=== PATIENT | female | born 1955 | race Caucasian/White ===

== ENCOUNTER 2017-02-16 15:25 | Emergency (ER) | payer MEDICAID, MEDICARE, SELFPAY ==
[~2017-02-16] VITALS: Ht 167.6 cm; Wt 112.7 kg
[~2017-02-16 15:25] MED LIST: BISA10SU PR; EUCECRE2 TOP; METF500T PO; PERC7.5T12 PO; PRED10TA2 PO; SENO8.6T9 PO; [UNRECOGNIZED DRUG - CODE] PO; [UNRECOGNIZED DRUG - CODE] TOP
[2017-02-16] MEDS ORDERED: COUG30LI4 PO (15:43)
[2017-02-16] MEDS ORDERED: ZITHTAB PO (17:07)
[2017-02-16 17:16] VITALS: BP 132/70
== END 2017-02-16 17:17 | disposition home or self-care (01) ==
LOC: M ED 15:25
DX: J41.8 Mixed simple and mucopurulent chronic bronchitis (principal); F99 Mental disorder, not otherwise specified; Z88.1 Allergy status to other antibiotic agents

== ENCOUNTER → 2017-11-05 | Outpatient (CLI) | payer MEDICARE, MEDICAID | LOC: M RAD 14:22 | DX: R22.42 Localized swelling, mass and lump, left lower limb (principal) | CPT/HCPCS: 93971 ==

== ENCOUNTER 2018-01-19 07:40 | Inpatient (IN) | payer MEDICARE, MEDICAID ==
[2018-01-19 08:13] LABS: HEMATOCRIT 40.1 % (36.0-47.0); HEMOGLOBIN 12.9 g/dl (12.0-15.5); MEAN CORPUSCULAR HEMOGLOBIN 28.3 pg (27.0-33.0); MEAN CORPUSCULAR HGB CONC 32.2 g/dl (32.0-36.5); MEAN CORPUSCULAR VOLUME 87.9 fl (80.0-96.0); PLATELET COUNT, AUTOMATED 201 10^3/uL (150-450); RED BLOOD COUNT 4.56 10^6/uL (4.00-5.40); WHITE BLOOD COUNT 6.5 10^3/uL (4.0-10.0)
[2018-01-19 08:36] LABS: ALBUMIN 3.4 GM/DL (3.2-5.2); ALBUMIN/GLOBULIN RATIO 0.89 (1.00-1.93); ALKALINE PHOSPHATASE 73 U/L (45-117); ALT/SGPT 27 U/L (12-78); ANION GAP 7 MEQ/L (8-16); AST/SGOT 20 U/L (7-37); BILIRUBIN,DIRECT 0.2 MG/DL (0.0-0.2); BILIRUBIN,TOTAL 0.7 MG/DL (0.2-1.0); BLOOD UREA NITROGEN 13 MG/DL (7-18); CALCIUM LEVEL 8.2 MG/DL (8.8-10.2); CARBON DIOXIDE LEVEL 28 MEQ/L (21-32); CHLORIDE LEVEL 106 MEQ/L (98-107); CREATININE FOR GFR 0.68 MG/DL (0.55-1.30); GLOMERULAR FILTRATION RATE > 60.0 (>45); GLUCOSE, FASTING 129 MG/DL (70-100); POTASSIUM SERUM 4.1 MEQ/L (3.5-5.1); SALICYLATE LEVEL 1.7 MG/DL (5.0-30.0); SODIUM LEVEL 141 MEQ/L (136-145); TOTAL PROTEIN 7.2 GM/DL (6.4-8.2)
[2018-01-19 08:44] LABS: ACETAMINOPHEN LEVEL < 2.0 UG/ML (10.0-30.0); ETHYL ALCOHOL (ETHANOL) < 0.003 % (0.000-0.010)
[2018-01-19 09:04] LABS: AMPHETAMINES LEVEL URINE NEGATIVE (NEGATIVE); BARBITURATES URINE NEGATIVE (NEGATIVE); BENZODIAZEPINES URINE NEGATIVE (NEGATIVE); CANNABINOIDS URINE NEGATIVE (NEGATIVE); COCAINE METABOLITE URINE NEGATIVE (NEGATIVE); METHADONE URINE NEGATIVE (NEGATIVE); OPIATES URINE NEGATIVE (NEGATIVE); PHENCYCLIDINE URINE NEGATIVE (NEGATIVE)
[2018-01-19] MEDS ORDERED: MOM 30ML SUSPENSION UDC PO (16:00)
[2018-01-19] MEDS ORDERED: MAALOX 30 ML SUSP *UDC PO (16:00)
[2018-01-19] MEDS: traZODone 50 MG TAB PO (20:56)
[2018-01-19] MEDS: ACETAMINOPHEN TAB 650MG DOSE (2X325MG) PO (20:57)
[2018-01-20] MEDS: traZODone 50 MG TAB PO (02:21)
[2018-01-20] MEDS: ACETAMINOPHEN TAB 650MG DOSE (2X325MG) PO ×2 (09:36→15:49)
[2018-01-20] MEDS: DOCUSATE SODIUM 100 MG CAP PO ×2 (11:13→21:00)
[2018-01-20] MEDS ORDERED: LORazepam 1 MG TAB PO (14:30)
[2018-01-20] MEDS: ARIPiprazole 10 MG TAB PO ×2 (14:30→21:00)
[2018-01-20 17:53] LABS: CPK CREATINE PHOSPHOKINASE 104 U/L (26-192); TROPONIN I < 0.02 NG/ML (< 0.10)
[2018-01-20 17:54] LABS: CK-MB VALUE MASS 1.8 NG/ML (<3.6); MB/CK RELATIVE INDEX 1.73 (< OR =4)
[2018-01-20] MEDS: CARVedilol 12.5 MG TAB PO (18:00)
[2018-01-20 23:14] LABS: CK-MB VALUE MASS 2.7 NG/ML (<3.6); CPK CREATINE PHOSPHOKINASE 226 U/L (26-192); MB/CK RELATIVE INDEX 1.19 (< OR =4); TROPONIN I < 0.02 NG/ML (< 0.10)
[2018-01-21 06:43] LABS: HEMOGLOBIN 14.3 g/dl (12.0-15.5); MEAN CORPUSCULAR HEMOGLOBIN 28.2 pg (27.0-33.0); MEAN CORPUSCULAR HGB CONC 32.5 g/dl (32.0-36.5); MEAN CORPUSCULAR VOLUME 86.8 fl (80.0-96.0); PLATELET COUNT, AUTOMATED 206 10^3/uL (150-450); RED BLOOD COUNT 5.07 10^6/uL (4.00-5.40); RED CELL DISTRIBUTION WIDTH 14.1 % (11.5-14.5); WHITE BLOOD COUNT 7.4 10^3/uL (4.0-10.0)
[2018-01-21 07:01] LABS: ESTIMATED AVERAGE GLUCOSE 151 MG/DL (60-110); HEMOGLOBIN A1c 6.9 %
[2018-01-21 07:02] LABS: ANION GAP 9 MEQ/L (8-16); BLOOD UREA NITROGEN 17 MG/DL (7-18); CALCIUM LEVEL 8.6 MG/DL (8.8-10.2); CARBON DIOXIDE LEVEL 30 MEQ/L (21-32); CHLORIDE LEVEL 103 MEQ/L (98-107); GLOMERULAR FILTRATION RATE > 60.0 (>45); GLUCOSE, FASTING 127 MG/DL (70-100); MAGNESIUM LEVEL 2.2 MG/DL (1.8-2.4); POTASSIUM SERUM 4.4 MEQ/L (3.5-5.1); SODIUM LEVEL 142 MEQ/L (136-145)
[2018-01-21] MEDS: ASPIRIN 81 MG ENTERIC TAB PO (08:55)
[2018-01-21] MEDS: ARIPiprazole 10 MG TAB PO ×2 (08:55→21:34)
[2018-01-21] MEDS: ACETAMINOPHEN TAB 650MG DOSE (2X325MG) PO (08:56)
[2018-01-21] MEDS: CARVedilol 12.5 MG TAB PO ×2 (08:57→21:34)
[2018-01-21] MEDS: DOCUSATE SODIUM 100 MG CAP PO ×2 (09:00→21:34)
[2018-01-22 06:55] LABS: HEMATOCRIT 42.1 % (36.0-47.0); HEMOGLOBIN 13.7 g/dl (12.0-15.5); MEAN CORPUSCULAR HEMOGLOBIN 28.2 pg (27.0-33.0); MEAN CORPUSCULAR HGB CONC 32.5 g/dl (32.0-36.5); MEAN CORPUSCULAR VOLUME 86.6 fl (80.0-96.0); PLATELET COUNT, AUTOMATED 231 10^3/uL (150-450); RED BLOOD COUNT 4.86 10^6/uL (4.00-5.40); WHITE BLOOD COUNT 8.4 10^3/uL (4.0-10.0)
[2018-01-22 07:10] LABS: ANION GAP 7 MEQ/L (8-16); BLOOD UREA NITROGEN 17 MG/DL (7-18); CALCIUM LEVEL 8.5 MG/DL (8.8-10.2); CARBON DIOXIDE LEVEL 29 MEQ/L (21-32); CHLORIDE LEVEL 102 MEQ/L (98-107); CREATININE FOR GFR 0.83 MG/DL (0.55-1.30); GLOMERULAR FILTRATION RATE > 60.0 (>45); GLUCOSE, FASTING 137 MG/DL (70-100); MAGNESIUM LEVEL 2.2 MG/DL (1.8-2.4); POTASSIUM SERUM 4.1 MEQ/L (3.5-5.1); SODIUM LEVEL 138 MEQ/L (136-145)
[2018-01-22] MEDS: ARIPiprazole 10 MG TAB PO ×2 (10:02→21:19)
[2018-01-22] MEDS: ASPIRIN 81 MG ENTERIC TAB PO (10:02)
[2018-01-22] MEDS: DOCUSATE SODIUM 100 MG CAP PO ×2 (10:02→21:19)
[2018-01-22] MEDS: CARVedilol 12.5 MG TAB PO ×2 (10:03→21:20)
[2018-01-22 12:25] LABS: APPEARANCE, URINE HAZY (CLEAR); BACTERIA, URINE AUTO NEGATIVE (NEGATIVE); BILIRUBIN, URINE AUTO NEGATIVE (NEGATIVE); BLOOD, URINE BLOOD NEGATIVE (NEGATIVE); COLOR, URINE YELLOW (YELLOW); GLUCOSE, URINE (UA) AUTO NEGATIVE (NEGATIVE); KETONE, URINE AUTO NEGATIVE (NEGATIVE); LEUKOCYTE ESTERASE, URINE AUTO TRACE (NEGATIVE); MUCUS, URINE SMALL (NEGATIVE); NITRITE, URINE AUTO NEGATIVE (NEGATIVE); PROTEIN, URINE AUTO NEGATIVE (NEGATIVE); RBC, URINE AUTO 0 /HPF (0-3); SPECIFIC GRAVITY URINE AUTO 1.016 (1.002-1.035); SQUAMOUS EPITHELIAL CELL UR AU 1 /HPF (0-6); WBC, URINE AUTO 5 /HPF (0-3)
[2018-01-23] MEDS: ACETAMINOPHEN TAB 650MG DOSE (2X325MG) PO ×2 (06:25→17:08)
[2018-01-23 06:33] LABS: HEMATOCRIT 41.4 % (36.0-47.0); HEMOGLOBIN 13.3 g/dl (12.0-15.5); MEAN CORPUSCULAR HEMOGLOBIN 28.2 pg (27.0-33.0); MEAN CORPUSCULAR HGB CONC 32.1 g/dl (32.0-36.5); MEAN CORPUSCULAR VOLUME 87.9 fl (80.0-96.0); PLATELET COUNT, AUTOMATED 192 10^3/uL (150-450); RED BLOOD COUNT 4.71 10^6/uL (4.00-5.40)
[2018-01-23 07:07] LABS: ANION GAP 7 MEQ/L (8-16); BLOOD UREA NITROGEN 21 MG/DL (7-18); CALCIUM LEVEL 8.7 MG/DL (8.8-10.2); CARBON DIOXIDE LEVEL 31 MEQ/L (21-32); CHLORIDE LEVEL 104 MEQ/L (98-107); CREATININE FOR GFR 0.85 MG/DL (0.55-1.30); GLOMERULAR FILTRATION RATE > 60.0 (>45); GLUCOSE, FASTING 125 MG/DL (70-100); MAGNESIUM LEVEL 2.3 MG/DL (1.8-2.4); POTASSIUM SERUM 4.5 MEQ/L (3.5-5.1); SODIUM LEVEL 142 MEQ/L (136-145)
[2018-01-23] MEDS: ARIPiprazole 10 MG TAB PO (09:01)
[2018-01-23] MEDS: DOCUSATE SODIUM 100 MG CAP PO ×2 (09:01→21:55)
[2018-01-23] MEDS: CARVedilol 12.5 MG TAB PO ×2 (09:02→21:56)
[2018-01-23] MEDS: ASPIRIN 81 MG ENTERIC TAB PO (09:02)
[2018-01-23] MEDS: ARIPiprazole 15 MG TAB (AbiLIFY) PO (21:55)
[2018-01-24] MEDS: ACETAMINOPHEN TAB 650MG DOSE (2X325MG) PO ×2 (05:55→21:13)
[2018-01-24 07:05] LABS: HEMATOCRIT 42.6 % (36.0-47.0); HEMOGLOBIN 13.7 g/dl (12.0-15.5); MEAN CORPUSCULAR HEMOGLOBIN 28.3 pg (27.0-33.0); MEAN CORPUSCULAR HGB CONC 32.2 g/dl (32.0-36.5); PLATELET COUNT, AUTOMATED 224 10^3/uL (150-450); RED BLOOD COUNT 4.84 10^6/uL (4.00-5.40); WHITE BLOOD COUNT 6.7 10^3/uL (4.0-10.0)
[2018-01-24 07:30] LABS: ANION GAP 7 MEQ/L (8-16); BLOOD UREA NITROGEN 20 MG/DL (7-18); CALCIUM LEVEL 8.6 MG/DL (8.8-10.2); CARBON DIOXIDE LEVEL 30 MEQ/L (21-32); CHLORIDE LEVEL 103 MEQ/L (98-107); CREATININE FOR GFR 0.81 MG/DL (0.55-1.30); GLOMERULAR FILTRATION RATE > 60.0 (>45); GLUCOSE, FASTING 129 MG/DL (70-100); MAGNESIUM LEVEL 2.2 MG/DL (1.8-2.4); POTASSIUM SERUM 4.4 MEQ/L (3.5-5.1); SODIUM LEVEL 140 MEQ/L (136-145)
[2018-01-24] MEDS: DOCUSATE SODIUM 100 MG CAP PO ×2 (08:02→21:13)
[2018-01-24] MEDS: ARIPiprazole 15 MG TAB (AbiLIFY) PO ×2 (08:03→21:13)
[2018-01-24] MEDS: CARVedilol 12.5 MG TAB PO ×2 (08:03→21:13)
[2018-01-24] MEDS: ASPIRIN 81 MG ENTERIC TAB PO (08:03)
[2018-01-25 06:39] LABS: HEMATOCRIT 43.3 % (36.0-47.0); HEMOGLOBIN 13.8 g/dl (12.0-15.5); MEAN CORPUSCULAR HEMOGLOBIN 28.2 pg (27.0-33.0); MEAN CORPUSCULAR HGB CONC 31.9 g/dl (32.0-36.5); MEAN CORPUSCULAR VOLUME 88.4 fl (80.0-96.0); PLATELET COUNT, AUTOMATED 225 10^3/uL (150-450); RED CELL DISTRIBUTION WIDTH 14.1 % (11.5-14.5); WHITE BLOOD COUNT 7.3 10^3/uL (4.0-10.0)
[2018-01-25 07:10] LABS: ANION GAP 7 MEQ/L (8-16); BLOOD UREA NITROGEN 19 MG/DL (7-18); CALCIUM LEVEL 8.8 MG/DL (8.8-10.2); CARBON DIOXIDE LEVEL 29 MEQ/L (21-32); CHLORIDE LEVEL 105 MEQ/L (98-107); CREATININE FOR GFR 0.77 MG/DL (0.55-1.30); GLOMERULAR FILTRATION RATE > 60.0 (>45); GLUCOSE, FASTING 132 MG/DL (70-100); MAGNESIUM LEVEL 2.3 MG/DL (1.8-2.4); POTASSIUM SERUM 4.4 MEQ/L (3.5-5.1); SODIUM LEVEL 141 MEQ/L (136-145)
[2018-01-25] MEDS: ASPIRIN 81 MG ENTERIC TAB PO (08:12)
[2018-01-25] MEDS: CARVedilol 12.5 MG TAB PO ×2 (08:12→21:20)
[2018-01-25] MEDS: ACETAMINOPHEN TAB 650MG DOSE (2X325MG) PO (08:12)
[2018-01-25] MEDS: ARIPiprazole 15 MG TAB (AbiLIFY) PO ×2 (08:12→21:20)
[2018-01-25] MEDS: DOCUSATE SODIUM 100 MG CAP PO ×2 (08:12→21:19)
[2018-01-25] MEDS: traZODone 50 MG TAB PO (21:19)
[2018-01-26] MEDS: ACETAMINOPHEN TAB 650MG DOSE (2X325MG) PO (06:49)
[2018-01-26] MEDS: ARIPiprazole 15 MG TAB (AbiLIFY) PO (08:45)
[2018-01-26] MEDS: ASPIRIN 81 MG ENTERIC TAB PO (08:45)
[2018-01-26] MEDS: DOCUSATE SODIUM 100 MG CAP PO ×2 (08:45→21:42)
[2018-01-26] MEDS: CARVedilol 12.5 MG TAB PO ×2 (08:46→21:42)
[2018-01-26 08:50] LABS: HEMATOCRIT 41.5 % (36.0-47.0); MEAN CORPUSCULAR HEMOGLOBIN 27.7 pg (27.0-33.0); MEAN CORPUSCULAR HGB CONC 31.3 g/dl (32.0-36.5); MEAN CORPUSCULAR VOLUME 88.3 fl (80.0-96.0); PLATELET COUNT, AUTOMATED 218 10^3/uL (150-450); WHITE BLOOD COUNT 6.7 10^3/uL (4.0-10.0)
[2018-01-26 09:17] LABS: ANION GAP 7 MEQ/L (8-16); BLOOD UREA NITROGEN 18 MG/DL (7-18); CALCIUM LEVEL 8.5 MG/DL (8.8-10.2); CARBON DIOXIDE LEVEL 30 MEQ/L (21-32); CHLORIDE LEVEL 103 MEQ/L (98-107); CREATININE FOR GFR 0.84 MG/DL (0.55-1.30); GLOMERULAR FILTRATION RATE > 60.0 (>45); GLUCOSE, FASTING 146 MG/DL (70-100); MAGNESIUM LEVEL 2.2 MG/DL (1.8-2.4); POTASSIUM SERUM 4.2 MEQ/L (3.5-5.1); SODIUM LEVEL 140 MEQ/L (136-145)
[2018-01-26] MEDS: ARIPiprazole MONOHYDRATE 400 MG INJ (ABILIFY)(J0401) IM (11:47)
[2018-01-26] MEDS: traZODone 50 MG TAB PO (21:42)
[2018-01-26] MEDS: ARIPiprazole 10 MG TAB PO (21:42)
[2018-01-27 08:05] LABS: HEMOGLOBIN 13.2 g/dl (12.0-15.5); MEAN CORPUSCULAR HEMOGLOBIN 28.1 pg (27.0-33.0); MEAN CORPUSCULAR VOLUME 85.3 fl (80.0-96.0); PLATELET COUNT, AUTOMATED 215 10^3/uL (150-450); RED BLOOD COUNT 4.69 10^6/uL (4.00-5.40); RED CELL DISTRIBUTION WIDTH 14.2 % (11.5-14.5); WHITE BLOOD COUNT 7.6 10^3/uL (4.0-10.0)
[2018-01-27 08:42] LABS: ANION GAP 7 MEQ/L (8-16); BLOOD UREA NITROGEN 16 MG/DL (7-18); CALCIUM LEVEL 8.6 MG/DL (8.8-10.2); CARBON DIOXIDE LEVEL 27 MEQ/L (21-32); CHLORIDE LEVEL 107 MEQ/L (98-107); CREATININE FOR GFR 0.71 MG/DL (0.55-1.30); GLOMERULAR FILTRATION RATE > 60.0 (>45); GLUCOSE, FASTING 124 MG/DL (70-100); MAGNESIUM LEVEL 2.2 MG/DL (1.8-2.4); POTASSIUM SERUM 4.2 MEQ/L (3.5-5.1); SODIUM LEVEL 141 MEQ/L (136-145)
[2018-01-27] MEDS: CARVedilol 12.5 MG TAB PO ×2 (08:49→19:58)
[2018-01-27] MEDS: DOCUSATE SODIUM 100 MG CAP PO ×2 (08:49→19:57)
[2018-01-27] MEDS: ASPIRIN 81 MG ENTERIC TAB PO (08:50)
[2018-01-27] MEDS: ARIPiprazole 10 MG TAB PO ×2 (08:50→19:57)
[2018-01-27] MEDS: ACETAMINOPHEN TAB 650MG DOSE (2X325MG) PO ×2 (08:51→17:36)
[2018-01-28] MEDS: ACETAMINOPHEN TAB 650MG DOSE (2X325MG) PO (06:35)
[2018-01-28] MEDS: DOCUSATE SODIUM 100 MG CAP PO (08:35)
[2018-01-28] MEDS: ASPIRIN 81 MG ENTERIC TAB PO (08:36)
[2018-01-28] MEDS: CARVedilol 12.5 MG TAB PO (08:36)
[2018-01-28] MEDS: ARIPiprazole 10 MG TAB PO (08:36)
== END 2018-01-28 13:35 | disposition home or self-care (01) | DRG 885 ==
LOC: M ED 07:40 → M ED INP 13:46 → M PSY 14:34
DX: F20.0 Paranoid schizophrenia (principal); Z68.41 Body mass index [BMI] 40.0-44.9, adult; K59.00 Constipation, unspecified; R51 Headache; I48.0 Paroxysmal atrial fibrillation; E66.9 Obesity, unspecified; E11.9 Type 2 diabetes mellitus without complications; M54.9 Dorsalgia, unspecified; Z79.82 Long term (current) use of aspirin; Z79.899 Other long term (current) drug therapy; Z88.1 Allergy status to other antibiotic agents; Z98.51 Tubal ligation status; Z87.891 Personal history of nicotine dependence

== ENCOUNTER 2019-12-28 12:20 | Inpatient (IN) | payer MEDICARE ==
[~2019-12-28] VITALS: Ht 167.6 cm; Wt 127.1 kg
[~2019-12-28 12:20] MED LIST changes: +ABIL20TA5 PO; +ABIL30TA4 PO; +ABIL400I IM; +ARIP1TAB PO; +ARIS2.4I IM; +ASPI1TAB77 PO; +ASPI81TAEC PO; +CARV12.5 PO; +COLA100C5 PO; +COUG30LI4 PO; +TRAZ1TAB10 PO; +ZITHTAB PO; +[UNRECOGNIZED DRUG - CODE] PO; -[UNRECOGNIZED DRUG - CODE] PO
[2019-12-28] MEDS ORDERED: ACETAMINOPHEN TAB 650MG DOSE (2X325MG) PO PRN (13:00)
[2019-12-28] MEDS ORDERED: METOPROLOL TART 25 MG TABLET PO SCH (14:00)
[2019-12-28 15:16] VITALS: BP 154/78
[2019-12-28 15:17] LABS: ALBUMIN 3.2 GM/DL (3.2-5.2); ALT/SGPT 20 U/L (12-78); BILIRUBIN,TOTAL 0.5 MG/DL (0.2-1.0); BLOOD UREA NITROGEN 20 MG/DL (7-18); CALCIUM LEVEL 8.3 MG/DL (8.8-10.2); CARBON DIOXIDE LEVEL 27 MEQ/L (21-32); CHLORIDE LEVEL 105 MEQ/L (98-107); CHOLESTEROL LEVEL 165 MG/DL (<200); CHOLESTEROL RISK RATIO 5.892 (<5); CREATININE FOR GFR 0.79 MG/DL (0.55-1.30); FREE T4 0.97 NG/DL (0.76-1.46); GLOMERULAR FILTRATION RATE > 60.0 (>45); GLUCOSE, FASTING 195 MG/DL (70-100); HDL CHOLESTEROL 28 MG/DL (>40); LDL CHOLESTEROL 75 MG/DL (<100); MAGNESIUM LEVEL 2.1 MG/DL (1.8-2.4); NON-HDL-C 137 MG/DL; PHOSPHORUS LEVEL 3.3 MG/DL (2.5-4.9); SODIUM LEVEL 137 MEQ/L (136-145); THYROID STIMULATING HORMONE 0.275 uIU/ML (0.358-3.740); TRIGLYCERIDES LEVEL 311 MG/DL (<150)
[2019-12-28] MEDS: APIXABAN 5 MG TAB (ELIQUIS) PO SCH (16:32)
[2019-12-28 17:31] VITALS: BP 163/91
[2019-12-28] MEDS: METOPROLOL TART 25 MG TABLET PO SCH ×2 (17:37→21:24)
[2019-12-28] MEDS: HumaLOG INSULIN (NovoLOG) PER UNIT SC SCH ×2 (17:43→20:15)
[2019-12-28] MEDS ORDERED: GLUCOSE 4GM CHEW TABLET PO PRN (17:45)
[2019-12-28] MEDS ORDERED: DEXTROSE 50% 50 ML SYRINGE IV PRN (17:45)
[2019-12-28] MEDS ORDERED: GLUCAGON INJ 1MG VIAL SC PRN (17:45)
--- NOTE | 2019-12-28 17:52 | HPEPDOC ---
[facility] Medical History & Physical Date of Admission Dec 28, 2019 Date of Service: Dec 28, 2019 Attending Physician: LILLY FINK MD History and Physical CHIEF COMPLAINT: None. Incidentally noted variable heart rate on [facility] examination HISTORY OF PRESENT ILLNESS: 64 yo W with a history of medication non compliance, rarely sees doctors, reporting a history of abdominal hernia for which she did not follow through with surgery for repair, diagnosis of DM for which she takes no medications, GED, HTN, chronic back pain, osteoarthritis, and an extensive psychiatric history of schizophrenia, depression, anxiety and multiple admissions in the [facility] who was admitted to the [facility] today for command audiotry hallucinations telling her to cause self harm whom on nursing examination on arrival to the [facility] was noted to have a variable heart beat with variable heart rate with tachyardia up to 150s. The nurse requested a medicine consult and on stat EKG she had atrial flutter with a rate of 156. She was otherwise asymptomatic, normotensive and reported that she sometimes has palpitations but never worries about it because it does not bother her. She otherwise denied a history of a stroke, asymmetrical weakness, dyspnea, chest pain, abdominal pain, fever, chills, LE swelling, orthopnea or paroxysmal nocturnal dyspnea. I decided to admit her to medicine for newly noted aftrial flutter. On arrival, I initially admitted her to med/surg with tele but her RVR continued and I started her on metop 25 Q6H and she was transferred to the PCU boarding in the ICU just incase she would require IV medication for rate control. She ultimately broke and went back in to sinus. In the meantime, I started her on eliquis and consulted Dr. Pedro. PAST MEDICAL HISTORY: DM for which she takes no medications, GED, HTN, chronic back pain, osteoarthritis, and an extensive psychiatric history of schizophrenia, depression, anxiety and multiple admissions in the [facility] PAST SURGICAL HISTORY: Tubal ligation SOCIAL HISTORY: Tobacco use: NO ETOH: NO Illicit drug use: NO FAMILY HISTORY: Non contributory ALLERGIES: Please see below. REVIEW OF SYSTEMS:12 point ROS was reviewed and all the pertinent positives are noted in the HPI above and was otherwise negative. HOME MEDICATIONS: Please see below. PHYSICAL EXAMINATION: VITAL SIGNS: normotensive, tachycardic to 130s, afebrile, breathing comfortably on room air GENERAL APPEARANCE: Morbidly obese HEENT: NCAT, PERRLA, EOMI, MMM CARDIOVASCULAR: Irregularly irregular LUNGS: CTAB ABDOMEN: Large abdominal hernia, nontender, obese, normoactive, soft EXTREMITIES: has bilateral LE edema, WWP NEUROLOGICAL: normal gait, AOx3, without dysarthria PSYCHIATRIC: Aox3 LABORATORY DATA: See below. IMAGING: CXR pending MICROBIOLOGY: Please see below. ASSESSMENT: 64 yo W with a history of medication non compliance, rarely sees doctors, reporting a history of abdominal hernia for which she did not follow through with surgery for repair, diagnosis of DM for which she takes no medications, GED, HTN, chronic back pain, osteoarthritis, and an extensive psychiatric history of schizophrenia, depression, anxiety and multiple admissions in the [facility] who was admitted to the [facility] today for command auditotry hallucinations telling her to cause self harm whom on nursing examination on arrival to the [facility] was noted to have a variable heart beat with variable heart rate with tachyardia up to 150s and found to be in Aflutter. PLAN: Atrial flutter: likely paroxysmal and longstanding from her description of episodic palpitations -Start eliquis 5 BID -TTE -TSH low, freeT4 was wnl -CXR pending -troponin negative -EKG was with Aflutter without ST changes -No noted clear source of infection -K and Mag wnl -Cardiology consulted. Dr. Pedro will see her tomorrow DM: -SSI, FSBG AC/HS, hypoglycemia protocol Audiotry hallucination: -psych consult DVT ppx: eliquis Dispo: PCU, boarding in the ICU Vital Signs Vital Signs Date Time Temp Pulse Resp B/P (MAP) Pulse Ox O2 Delivery O2 Flow Rate FiO2 12/28/19 15:16 97.0 139 14 154/78 (103) 95 Room Air Laboratory Data Labs 24H Laboratory Tests 2 12/28/19 14:19: Anion Gap 5L, Glomerular Filtration Rate > 60.0, Calcium Level 8.3L, Phosphorus Level 3.3, Magnesium Level 2.1, Total Bilirubin 0.5, Aspartate Amino Transf (AST/SGOT) 18, Alanine Aminotransferase (ALT/SGPT) 20, Alkaline Phosphatase 63, Troponin I < 0.02, Total Protein 7.0, Albumin 3.2, Albumin/Globulin Ratio 0.8L, Triglycerides Level 311H, Total Cholesterol 165, LDL Cholesterol 75, Non-HDL Cholesterol (LDL + VLDL) 137, Total HDL Cholesterol 28L, Cholesterol/HDL Ratio 5.892H, Thyroid Stimulating Hormone (TSH) 0.275L, Free Thyroxine 0.97 CBC/BMP Laboratory Tests 12/28/19 14:19 Home Medications Scheduled PRN Aspirin/Acetaminophen/Caffeine (Headache Relief Tablet) 1 Tab Tab, 1 TAB PO Q6H PRN for HEADACHE Allergies Coded Allergies: levofloxacin (Verified Adverse Reaction, Unknown, DIARRHEA, 12/28/19) A-FIB/CHADSVASC A-FIB History Current/History of A-Fib/PAF?: Yes Current PO Anticoag Therapy: Yes LILLY FINK MD Dec 28, 2019 17:52
[2019-12-28 20:00] VITALS: BP 139/93
[2019-12-28 21:22] VITALS: BP 138/102
[2019-12-29 01:45] VITALS: BP 113/69
[2019-12-29] MEDS ORDERED: SLF 3 ML SYR IV PRN (03:30)
[2019-12-29 04:00] VITALS: BP 125/66
[2019-12-29 06:12] LABS: HEMOGLOBIN 13.8 g/dl (12.0-15.5); MEAN CORPUSCULAR HEMOGLOBIN 29.3 pg (27.0-33.0); MEAN CORPUSCULAR HGB CONC 32.1 g/dl (32.0-36.5); MEAN CORPUSCULAR VOLUME 91.3 fl (80.0-96.0); PLATELET COUNT, AUTOMATED 182 10^3/uL (150-450); RED BLOOD COUNT 4.71 10^6/uL (4.00-5.40); WHITE BLOOD COUNT 8.6 10^3/uL (4.0-10.0)
[2019-12-29] MEDS: SLF 3 ML SYR IV SCH ×3 (06:17→21:09)
[2019-12-29] MEDS: METOPROLOL TART 25 MG TABLET PO SCH ×4 (06:17→23:52)
[2019-12-29 06:50] LABS: ALBUMIN 3.1 GM/DL (3.2-5.2); ALT/SGPT 22 U/L (12-78); BILIRUBIN,TOTAL 1.1 MG/DL (0.2-1.0); BLOOD UREA NITROGEN 21 MG/DL (7-18); CALCIUM LEVEL 8.5 MG/DL (8.8-10.2); CARBON DIOXIDE LEVEL 31 MEQ/L (21-32); CHLORIDE LEVEL 103 MEQ/L (98-107); GLOMERULAR FILTRATION RATE > 60.0 (>45); GLUCOSE, FASTING 163 MG/DL (70-100); MAGNESIUM LEVEL 2.1 MG/DL (1.8-2.4); POTASSIUM SERUM 4.8 MEQ/L (3.5-5.1); SODIUM LEVEL 139 MEQ/L (136-145); TOTAL PROTEIN 6.8 GM/DL (6.4-8.2)
[2019-12-29 07:24] VITALS: BP 120/60
--- NOTE | 2019-12-29 07:27 | REP ---
REASON: Dyspnea. Latest prior for comparison is 11/13/2013. The technique utilized in obtaining the radiograph has magnified the cardiac silhouette and accentuated the interstitial markings. There is cardiomegaly, which is mild, but accentuated by technique. The lung silver are clear and stable. No acute patchy parenchymal opacities or pleural effusions have developed. There is no change in the osseous structures. IMPRESSION: No acute cardiopulmonary disease. Electronically Signed by Armand Morrissey DO 12/29/2019 09:27 A
[2019-12-29] MEDS: APIXABAN 5 MG TAB (ELIQUIS) PO SCH ×2 (08:43→21:08)
[2019-12-29] MEDS: HumaLOG INSULIN (NovoLOG) PER UNIT SC SCH ×4 (08:43→21:00)
[2019-12-29] MEDS: ASPIRIN 81 MG ENTERIC TAB PO SCH (08:43)
--- NOTE | 2019-12-29 10:28 | CR ---
DATE OF CONSULTATION: 12/29/2019 INDICATION: Atrial flutter. HISTORY OF PRESENT ILLNESS: Mrs. Man is previously unknown to me. She is a 64-year-old female who was admitted yesterday for psychiatric admission, but during the intake it was noted she was tachycardic and 12-lead ECG revealed atrial flutter with 2:1 conduction and ventricular rate approximately 150 beats per minute. She was moved to the progressive care unit (PCU). She received beta blockers and eventually converted to sinus rhythm and has stayed in sinus rhythm since. She tells me that she had no awareness of the arrhythmia. She did not feel any palpitations, tachycardia, chest pain or shortness of breath. She carries no prior history of cardiovascular disease, at least none that she can recall. She says that at her baseline she is relatively sedentary, but she is able to ambulate without major difficulty. Denies any chest pain. There is no history of syncope and near-syncope. She does not recall that she would ever have had any cardiac evaluation. PAST MEDICAL HISTORY: 1. Type 2 diabetes. 2. Gastroesophageal reflux disease (GERD). 3. Hypertension. 4. Degenerative joint disease (DJD). 5. Extensive history of psychiatric conditions that include depression, anxiety and schizophrenia. PAST SURGICAL HISTORY: Positive for tubal ligation SOCIAL HISTORY: The patient quit smoking 3 years ago. She does not drink alcohol. She is . Mother of three children. FAMILY HISTORY: No longer relevant. She does not have much information. OUTPATIENT MEDICATIONS: None. ALLERGIES: LEVOFLOXACIN. PHYSICAL EXAMINATION: Vital Signs: Blood pressure 120/60. Heart rate has been currently in 60s, but during the flutter was 150. She is afebrile. Saturation 94% on room air. She weighs 127 kg. She is currently alert, oriented and appropriate. Her jugular venous pulse (JVP) is not high. Lungs are reasonably clear. Heart exam reveals very limited exam due to her obesity. I do not appreciate any gallop, rub or murmur, but I could barely hear her heart sounds. Abdomen demonstrates significant hernia. I do not appreciate any obvious organomegaly, but again limited exam considering her body habitus. Extremities have about 1+ edema. There is stasis dermatitis extending to her shins. Peripheral pulses are palpable, but not of a good quality. LABORATORIES: Basic metabolic panel is normal, but for glucose of 163. She had normal liver function test. Albumin is 3.1. Lipid panel yesterday revealed total cholesterol 165, LDL 75, HDL 28 and triglycerides 311. Her TSH was 0.275, slightly depressed. ECG on admission reveals presence of atrial flutter with 2:1 conduction and poor R-wave progression. It is a typical atrial flutter. Chest x-ray is a portable study, but I do not appreciate any gross evidence for pleural effusion or congestive heart failure. ASSESSMENT/PLAN: Mrs. Man is a 64-year-old female who presented with atrial flutter that was detected essentially by chance. She had no awareness of the arrhythmia. She spontaneously converted back to sinus rhythm. At this point, I do believe that she should be chronically anticoagulated because she has additional risk factors for stroke if only her female sex and age. She was already started on Eliquis, which I think is a perfectly acceptable option and should be continued. She responded favorably to administration of beta blockers. I would recommend to continue metoprolol, probably just 25 mg twice a day chronically. An echocardiogram was requested, but provided she has preserved left ventricular systolic function, which in my opinion is likely, I do not believe that any further immediate testing evaluation will be necessary and I would not have any objections that she returns back to the psychiatric floor. RADHA
[2019-12-29 12:00] VITALS: BP 114/54
--- NOTE | 2019-12-29 15:57 | IPNPDOC ---
Text Note Date of Service The patient was seen on 12/29/19. NOTE SUBJECTIVE: -No complaints, doing well. Pleasant. -Noted to have paroxysms of Aflutter, SVT, NSR OBJECTIVE: VITAL SIGNS: see below GENERAL APPEARANCE: Morbidly obese HEENT: NCAT, PERRLA, EOMI, MMM CARDIOVASCULAR: Regular this morning, no m/r/g noted LUNGS: CTAB ABDOMEN: Large abdominal hernia, nontender, obese, normoactive, soft EXTREMITIES: has bilateral LE edema, WWP NEUROLOGICAL: normal gait, AOx3, without dysarthria PSYCHIATRIC: AOx3 LABORATORY DATA: Reviewed WBC 8.6 Hgb 13.8 Platelets 182 Na 139 K 4.8 Cr 0.8 mag 2.1 TSH low, free T4 0.97 troponin negative IMAGING: CXR without evidence of pathology, sharp angles, no masses, no adenopathy, no effusions, heart size wnl MICROBIOLOGY: Please see below. ASSESSMENT: 64 yo W with a history of medication non compliance, rarely sees doctors, reporting a history of abdominal hernia for which she did not follow through with surgery for repair, diagnosis of DM for which she takes no medications, GED, HTN, chronic back pain, osteoarthritis, and an extensive psychiatric history of schizophrenia, depression, anxiety and multiple admissions in the [facility] who was admitted to the [facility] for command auditory hallucinations to cause self harm whom on nursing examination on arrival to the [facility] was noted to have a variable heart beat with variable heart rate with tachycardia up to 150s and found to be in Aflutter. PLAN: Paroxysmal atrial flutter: -continue eliquis 5 BID -TTE pending -TSH low, freeT4 was wnl -CXR without any pathology noted -troponin negative -EKG was with Aflutter without ST changes -No noted clear source of infection, afebrile, normotensive, skin intact, no leukocytosis -K and Mag wnl -Cardiology consulted. Dr. Pedro will see her today DM: -SSI, FSBG AC/HS, hypoglycemia protocol Audiotry hallucination: -psych consult DVT ppx: eliquis Dispo: PCU. Will request transfer back to [facility] once medically cleared VS,Fishbone, I+O VS, Fishbone, I+O Laboratory Tests 12/28/19 14:19 12/29/19 05:56 Vital Signs Date Time Temp Pulse Resp B/P (MAP) Pulse Ox O2 Delivery O2 Flow Rate FiO2 12/29/19 06:17 64 125/66 12/29/19 04:00 96.6 19 98 Room Air I&O- Last 24 Hours up to 6 AM 12/29/19 06:00 Intake Total 720 ml Output Total 700 ml Balance 20 ml LILLY FINK MD Dec 29, 2019 07:17
[2019-12-29 16:00] VITALS: BP 120/58
[2019-12-29 20:00] VITALS: BP 143/72
[2019-12-30] VITALS (7 sets, daily range): BP systolic 127–158; BP diastolic 58–90
[2019-12-30] MEDS: METOPROLOL TART 25 MG TABLET PO SCH (05:49)
[2019-12-30] MEDS: SLF 3 ML SYR IV SCH ×2 (05:50→13:46)
[2019-12-30 05:58] LABS: HEMATOCRIT 43.4 % (36.0-47.0); HEMOGLOBIN 13.6 g/dl (12.0-15.5); MEAN CORPUSCULAR HEMOGLOBIN 28.5 pg (27.0-33.0); MEAN CORPUSCULAR HGB CONC 31.3 g/dl (32.0-36.5); PLATELET COUNT, AUTOMATED 182 10^3/uL (150-450); RED BLOOD COUNT 4.77 10^6/uL (4.00-5.40); WHITE BLOOD COUNT 7.7 10^3/uL (4.0-10.0)
[2019-12-30 06:21] LABS: ALBUMIN 3.3 GM/DL (3.2-5.2); ALT/SGPT 23 U/L (12-78); BILIRUBIN,TOTAL 1.1 MG/DL (0.2-1.0); BLOOD UREA NITROGEN 22 MG/DL (7-18); CALCIUM LEVEL 8.4 MG/DL (8.8-10.2); CARBON DIOXIDE LEVEL 27 MEQ/L (21-32); CHLORIDE LEVEL 105 MEQ/L (98-107); CREATININE FOR GFR 0.79 MG/DL (0.55-1.30); GLOMERULAR FILTRATION RATE > 60.0 (>45); GLUCOSE, FASTING 160 MG/DL (70-100); MAGNESIUM LEVEL 2.1 MG/DL (1.8-2.4); POTASSIUM SERUM 4.3 MEQ/L (3.5-5.1); SODIUM LEVEL 140 MEQ/L (136-145); TOTAL PROTEIN 7.1 GM/DL (6.4-8.2)
[2019-12-30] MEDS: HumaLOG INSULIN (NovoLOG) PER UNIT SC SCH ×4 (08:44→20:34)
[2019-12-30] MEDS: APIXABAN 5 MG TAB (ELIQUIS) PO SCH ×2 (08:44→20:34)
[2019-12-30] MEDS: ASPIRIN 81 MG ENTERIC TAB PO SCH (08:44)
--- NOTE | 2019-12-30 12:24 | ECHO ---
DATE OF STUDY: 12/29/2019 DATE OF : 1955 AGE: 64 REFERRING PROVIDER: Dr. Storm PATIENT LOCATION: Room 3222 REASON FOR STUDY: Abnormal EKG. 2-D MEASUREMENTS: IVS: 1.1 cm LV: 4.3 cm LVPW: 1.1 cm LA: 4.1 cm Aorta: 2.6 cm DOPPLER MEASUREMENTS: Peak velocity across the aortic valve: 1.7 m/s Peak velocity across the LVOT: 1.1 m/s Mitral E: 0.88 Mitral A: 0.77 Ratio: 1.1 Maximum tricuspid valve velocity: 2.5 m/s 2-D COMMENTS: 1. Technically limited study due to poor acoustic window. 2. The left ventricular size is normal with a normal left ventricular wall thickness and systolic function. The estimated left ventricular systolic ejection fraction is 60-65%. 3. Mildly dilated left atrium. The right atrium appeared to be normal in limited views. Normal right ventricle. 4. The atrial septum appeared to be normal without evidence of defect or shunt. 5. Normal aortic root. 6. No pericardial effusion seen. 7. Mildly calcified aortic valve with normal leaflet excursion. Mildly calcified mitral annulus with normal anterior mitral valve leaflet motion. Normal tricuspid valve. The pulmonic valve and proximal pulmonary artery branches were not well visualized. 8. The inferior vena cava appeared to be normal in size, but in limited views. DOPPLER: It detects trace mitral regurgitation and mild tricuspid regurgitation. The calculated pulmonary artery systolic pressure varies between 30-40 mmHg. Assessment of the left ventricular diastolic function was normal. IMPRESSIONS: 1. Technically limited study due to poor acoustic window. 2. Normal global left ventricular systolic function. Assessment of the left ventricular diastolic function appeared to be normal. 3. Aortic valve sclerosis without stenosis or aortic regurgitation. 4. Mitral annulus calcification with trace mitral regurgitation and a mildly enlarged left atrium. 5. Mild tricuspid regurgitation with probably mild pulmonary hypertension.
--- NOTE | 2019-12-30 12:58 | DS.PDOC ---
Discharge Summary General Date of Admission Dec 28, 2019 at 13:25 Date of Discharge 12/30/2019 Attending Physician: LILLY FINK MD Discharge Summary PROCEDURES PERFORMED DURING STAY: None ADMITTING DIAGNOSES: 1. Atrial flutter DISCHARGE DIAGNOSES: 1. paroxysmal atrial flutter 2. abdominal hernia for which she did not follow through with surgery for repair, not causing her any trouble at this time 3. diagnosis of DM for which she takes no medications 4. GERD 5. HTN 6. chronic back pain 7. osteoarthritis 8. extensive psychiatric history of schizophrenia, depression, anxiety recently admitted to [facility] for auditory command hallucinations COMPLICATIONS/CHIEF COMPLAINT: Atrial Flutter By Electrocardiogram. HISTORY OF PRESENT ILLNESS: 64 yo W with a history of medication non compliance, rarely sees doctors, reporting a history of an abdominal hernia for which she did not follow through with surgery for repair, diagnosis of DM for which she takes no medications, GERD, HTN, chronic back pain, osteoarthritis, and an extensive psychiatric history of schizophrenia, depression, anxiety and multiple admissions in the [facility] who was admitted to the [facility] for command auditory hallucinations telling her to cause self harm, whom on nursing examination on arrival to the [facility] was noted to have a variable heart beat with variable heart rate with tachycardia up to 150s. The nurse requested a medicine consult and on stat EKG she had atrial flutter with a rate of 156. She was otherwise asymptomatic, normotensive and reported that she sometimes has palpitations but never worries about it because it does not bother her. She otherwise denied a history of a stroke, asymmetrical weakness, dyspnea, chest pain, abdominal pain, fever, chills, LE swelling, orthopnea or paroxysmal nocturnal dyspnea. I decided to admit her to medicine for newly noted atrial flutter. HOSPITAL COURSE: On arrival, I initially admitted her to med/surg with tele but her RVR continued and I started her on metop 25 Q6H and she was transferred to the PCU just incase she would require IV medication for rate control. She ultimately broke and went back in to sinus. In the meantime, I started her on eliquis and consulted Dr. Pedro who recommended continuation of anticoagulation and rate control. TSH was low with a normal free T4, while EKG was non ischemic, troponin negative, lipid panel showed mild hypertriglyceridemia, CXR was wnl without acute pathology and TTE showed a normal EF. She is now medically cleared and being transferred back to inpatient mental health for evaluation and treatment of her ongoing auditory hallucinations. DISCHARGE MEDICATIONS: Please see below. ALLERGIES: Please see below. PHYSICAL EXAMINATION ON DISCHARGE: VITAL SIGNS: Please see below. GENERAL APPEARANCE: Morbidly obese HEENT: NCAT, PERRLA, EOMI, MMM CARDIOVASCULAR: Regular rhythm and rate, no m/r/g noted LUNGS: CTAB ABDOMEN: Large abdominal hernia, nontender, obese, normoactive, soft EXTREMITIES: has bilateral LE edema, WWP NEUROLOGICAL: normal gait, AOx3, without dysarthria PSYCHIATRIC: AOx3 LABORATORY DATA: Please see below. IMAGING: CXR: no acute pathology noted. TTE: normal EF per my discussion with Dr. Pedro. Official read pending. PROGNOSIS: Good ACTIVITY: As tolerated DIET: consistent carbohydrate and 2g sodium diet DISCHARGE PLAN: [facility] DISPOSITION: [facility] DISCHARGE INSTRUCTIONS: 1. Please follow up with Dr. Pedro (cardiology) and PCP on discharge. ITEMS TO FOLLOWUP ON ON OUTPATIENT: 1. paroxysmal atrial dysrhythmias DISCHARGE CONDITION: Stable TIME SPENT ON DISCHARGE: 40 minutes. Vital Signs/I&Os Vital Signs Date Time Temp Pulse Resp B/P (MAP) Pulse Ox O2 Delivery O2 Flow Rate FiO2 12/30/19 05:49 74 151/72 12/30/19 04:00 96.3 18 95 Room Air I&O- Last 24 Hours up to 6 AM 12/30/19 06:00 Intake Total 1140 ml Output Total 350 ml Balance 790 ml Laboratory Data Labs 24H Laboratory Tests 2 12/29/19 12:11: Bedside Glucose (Misc Panel) 119H 12/29/19 17:20: Bedside Glucose (Misc Panel) 189H 12/29/19 21:02: Bedside Glucose (Misc Panel) 156H 12/30/19 05:30: Nucleated Red Blood Cells % (auto) 0.0, Anion Gap 8, Glomerular Filtration Rate > 60.0, Calcium Level 8.4L, Magnesium Level 2.1, Total Bilirubin 1.1H, Aspartate Amino Transf (AST/SGOT) 19, Alanine Aminotransferase (ALT/SGPT) 23, Alkaline Phosphatase 61, Total Protein 7.1, Albumin 3.3, Albumin/Globulin Ratio 0.9L CBC/BMP Laboratory Tests 12/30/19 05:30 FSBS Laboratory Tests Test 12/29/19 12:11 12/29/19 17:20 12/29/19 21:02 Range/Units Bedside Glucose (Misc Panel) 119 189 156 80-115 MG/DL Discharge Medications Scheduled PRN Aspirin/Acetaminophen/Caffeine (Headache Relief Tablet) 1 Tab Tab, 1 TAB PO Q6H PRN for HEADACHE, (Reported) Allergies Coded Allergies: levofloxacin (Verified Adverse Reaction, Unknown, DIARRHEA, 12/28/19) LILLY FINK MD Dec 30, 2019 06:44
[2019-12-30] MEDS ORDERED: LOPR1TAB6 PO (12:59)
[2019-12-30] MEDS ORDERED: ELIQ5TAB PO (12:59)
--- NOTE | 2019-12-30 13:22 | IPN ---
DATE: 12/30/2019 Ms. Man has not had any problems since yesterday. She was able to ambulate on telemetry without difficulty. Telemetry monitoring continues to reveal sinus rhythm. There has not been any relapse of atrial flutter. Vital Signs: Blood pressure 128/77. Heart rate has been in 50s to 60s. She is afebrile. Saturation is 100% on room air. Weight remains unchanged at 127.1 kg. Lungs are clear. Heart exam reveals a regular rhythm without obvious gallop or rub. Abdomen is obese, but soft. No edema other than stasis dermatitis changes on her staley. Neurologically, she is intact. LABORATORIES: Normal CBC. Normal basic metabolic panel, but for glucose of 160. ASSESSMENT/PLAN: Mrs. Man is a 64-year-old female who came to the hospital with a psychiatric diagnosis and was found to have tachycardia that represented atrial flutter with rapid ventricular response (RVR). She converted to sinus rhythm after administration of metoprolol and has maintained sinus rhythm since. Her echocardiogram yesterday revealed preserved left ventricular systolic function and no significant valvular disease. At this point, she can go back to the psychiatric [facility] and be taken off telemetry. She received all her doses of beta blockers and consequently I believe we can put her on metoprolol 50 twice a day and continue Eliquis 5 twice a day. I would discontinue the aspirin. I tentatively plan to see her in the office in a few weeks. Unfortunately, she has virtually no social support and tells me that she does not have any transportation and she does not see a primary care physician on a regular basis. All of these things should be arranged. I do recommend that [employer] are involved because without established outpatient care she will be back very soon. I am going to sign off her service.
--- NOTE | 2019-12-30 19:24 | MHIPNPDOC ---
[facility] Progress Note Progress Note DATE OF SERVICE: 12/30/19 HISTORY: Asper previous records: "64 yo W with a history of medication non compliance, rarely sees doctors, reporting a history of abdominal hernia for which she did not follow through with surgery for repair, diagnosis of DM for which she takes no medications, GED, HTN, chronic back pain, osteoarthritis, and an extensive psychiatric history of schizophrenia, depression, anxiety and multiple admissions in the [facility] who was admitted to the [facility] today for command audiotry hallucinations telling her to cause self harm whom on nursing examination on arrival to the [facility] was noted to have a variable heart beat with variable heart rate with tachyardia up to 150s. The nurse requested a medicine consult and on stat EKG she had atrial flutter with a rate of 156. She was otherwise asymptomatic, normotensive and reported that she sometimes has palpitations but never worries about it because it does not bother her. She otherwise denied a history of a stroke, asymmetrical weakness, dyspnea, chest pain, abdominal pain, fever, chills, LE swelling, orthopnea or paroxysmal nocturnal dyspnea. I decided to admit her to medicine for newly noted aftrial flutter. On arrival, I initially admitted her to med/surg with tele but her RVR continued and I started her on metop 25 Q6H and she was transferred to the PCU boarding in the ICU just incase she would require IV medication for rate control. She ultimately broke and went back in to sinus. In the meantime, I started her on eliquis and consulted Dr. Pedro." VITAL SIGNS: See below. NEW TEST RESULTS: See below CURRENT MEDICATIONS: See below. MENTAL STATUS EXAMINATION: Patient is a 64-year old female, who is alert, cooperative, dressed in hospital clothes, wearing a face mask. Speech: Is tangential, with normal tone, rate, rhythm and volume. Thought processes including: disorganized, tangential Thought content: paranoid thoughts, she believes other people want to control what she does,people are always aware of what she does even when they are not with her Abstract reasoning, and computation: impaired. Description of associations: loose. Description of abnormal or psychotic thoughts: She has paranoid thoughts, b elieves people that are not physically present are out to control her life and what she does. She reports auditory hallucinations of voices telling her "nasty things". Reports angry thoughts about people controlling her life. she denies SI but she says she has had HI towards the people that she feels are controlling her life. Judgment: poor. Insight: poor. Orientation: to place and person but not fully oriented to date and time.. Attention span and concentration: Fund of knowledge: unable to asses Mood: mildly anxious. Affect: congruent with mood, constricted. DIAGNOSES: 1. Paranoid schizophrenia. 2. Atrial flutter 3. GED, 4. HTN, 5. chronic back pain 6. osteoarthritis, ASSESSMENT: the patient is psychotic, very paranoid, she implies that she has homicidal ideation towards people whose name she won't disclose because she thinks they always know what she is doing, they know if she goes to the grocery store even when they have not been with her and then, they tell her she shouldn't be spending all that money. She says she feels extremely annoyed about being controlled and she feels unsafe when at home. her speech and thought process are disorganized and tangential, she needs to be discharged to the In patient Mental Health Unit so that she can be treated for her psychiatric illness, for her safety, other people's safety and stabilization. MANAGEMENT PLAN: Discharge to [facility] TIME SPENT: 30 minutes. Vital Signs Vital Signs Date Time Temp Pulse Resp B/P (MAP) Pulse Ox O2 Delivery O2 Flow Rate FiO2 12/30/19 16:00 98.0 62 18 144/76 (98) 100 Room Air Laboratory Data 24H Labs Laboratory Tests 2 12/29/19 21:02: Bedside Glucose (Misc Panel) 156H 12/30/19 05:30: Nucleated Red Blood Cells % (auto) 0.0, Anion Gap 8, Glomerular Filtration Rate > 60.0, Calcium Level 8.4L, Magnesium Level 2.1, Total Bilirubin 1.1H, Aspartate Amino Transf (AST/SGOT) 19, Alanine Aminotransferase (ALT/SGPT) 23, Alkaline Phosphatase 61, Total Protein 7.1, Albumin 3.3, Albumin/Globulin Ratio 0.9L 12/30/19 11:34: Bedside Glucose (Misc Panel) 142H 12/30/19 17:05: Bedside Glucose (Misc Panel) 138H CBC/BMP Laboratory Tests 12/30/19 05:30 Current Medications Current Medications Medications (Trade) Dose Ordered Sig/Tracy Route PRN Reason Start Time Stop Time Status Last Admin Dose Admin Acetaminophen (Tylenol Tab) 650 mg Q4H PRN PO PAIN OR FEVER 12/28/19 13:00 Apixaban (Eliquis) 5 mg BID PO 12/28/19 16:00 12/30/19 08:44 Aspirin (Ecotrin) 81 mg DAILY PO 12/29/19 09:00 12/30/19 08:51 DC 12/30/19 08:44 Dextrose (Dextrose 50%) 25 ml ASDIRECTED PRN IV SEE LABEL COMMENTS 12/28/19 17:45 Glucagon (Glucagon) 1 mg ASDIRECTED PRN SC SEE LABEL COMMENTS 12/28/19 17:45 Glucose (Glucose) 16 GM ASDIRECTED PRN PO SEE LABEL COMMENTS 12/28/19 17:45 Home Med (Med Rec Complete!) ASDIRECTED XX 12/28/19 14:15 12/28/19 14:13 DC Insulin Human Lispro (HumaLOG INSULIN) See Protocol Table AC SC 12/28/19 17:30 12/30/19 18:05 Insulin Human Lispro (HumaLOG INSULIN) See Protocol Table QHS SC 12/28/19 21:00 Metoprolol Tartrate (Lopressor) 25 mg BID PO 12/28/19 14:00 12/28/19 14:34 DC 12/28/19 13:58 Metoprolol Tartrate (Lopressor) 25 mg Q6H PO 12/28/19 18:00 12/30/19 08:51 DC 12/30/19 05:49 Metoprolol Tartrate (Lopressor) 50 mg BID PO 12/30/19 21:00 Miscellaneous (Unresolved Clarification Entry) SEE LABEL COMMENTS DAILY XX 12/28/19 09:00 Cancel Sodium Chloride (Saline Lock Flush) 2 ml ASDIRECTED PRN IV SEE LABEL COMMENTS 12/29/19 03:30 Sodium Chloride (Saline Lock Flush) 2 ml SLF IV 12/29/19 06:00 12/30/19 13:46 Allergies Coded Allergies: levofloxacin (Verified Adverse Reaction, Unknown, DIARRHEA, 12/28/19) IVONNE GUPTA MD Dec 30, 2019 19:09
[2019-12-30] MEDS ORDERED: METOPROLOL TART 50 MG TAB PO SCH (21:00)
== END 2019-12-30 21:56 | DRG 309 ==
LOC: M MSPAV 13:25 → M ICU 14:34 → M PCU 12-29 01:44
PROVIDERS: ADMIT Internal Medicine; ATTEND Internal Medicine
DX: I48.92 Unspecified atrial flutter (principal); F20.0 Paranoid schizophrenia; E11.9 Type 2 diabetes mellitus without complications; K21.9 Gastro-esophageal reflux disease without esophagitis; I10 Essential (primary) hypertension; I87.2 Venous insufficiency (chronic) (peripheral); M54.9 Dorsalgia, unspecified; M19.90 Unspecified osteoarthritis, unspecified site; F32.9 Major depressive disorder, single episode, unspecified; F41.9 Anxiety disorder, unspecified; E66.01 Morbid (severe) obesity due to excess calories; Z91.14 Patient's other noncompliance with medication regimen; Z88.8 Allergy status to other drugs, medicaments and biological substances

== ENCOUNTER 2019-12-30 20:10 | Inpatient (IN) | payer MEDICARE ==
[~2019-12-30] VITALS: Ht 167.6 cm; Wt 125.6 kg
[~2019-12-30 20:10] MED LIST changes: +ELIQ5TAB PO; +LOPR1TAB6 PO
[2019-12-30] MEDS ORDERED: ACETAMINOPHEN TAB 650MG DOSE (2X325MG) PO PRN (20:15)
[2019-12-30] MEDS ORDERED: OLANZapine ORAL DISINTEGRATING TAB 5MG PO PRN (20:15)
[2019-12-30] MEDS ORDERED: MAALOX 30 ML SUSP *UDC PO PRN (20:15)
[2019-12-30] MEDS ORDERED: MOM 30ML SUSPENSION UDC PO PRN (20:15)
[2019-12-30] MEDS ORDERED: DEXTROSE 50% 50 ML SYRINGE IV PRN (20:30)
[2019-12-30] MEDS ORDERED: GLUCAGON INJ 1MG VIAL SC PRN (20:30)
[2019-12-30] MEDS ORDERED: GLUCOSE 4GM CHEW TABLET PO PRN (20:30)
[2019-12-30] MEDS ORDERED: METOPROLOL SUCC (TopROL XL) 50MG **XL** TAB PO SCH (21:00)
[2019-12-30] MEDS: HumaLOG INSULIN (NovoLOG) PER UNIT SC SCH (21:00)
[2019-12-30 22:12] VITALS: BP 148/75
[2019-12-31] MEDS: HumaLOG INSULIN (NovoLOG) PER UNIT SC SCH ×4 (06:54→21:00)
[2019-12-31 07:19] VITALS: BP 126/73
[2019-12-31] MEDS: APIXABAN 5 MG TAB (ELIQUIS) PO SCH ×2 (09:31→21:52)
[2019-12-31] MEDS: METOPROLOL TART 50 MG TAB PO SCH ×2 (09:31→21:53)
[2019-12-31] MEDS: ASPIRIN 81 MG ENTERIC TAB PO SCH (09:31)
--- NOTE | 2019-12-31 15:34 | HPEPDOC ---
[facility] Medical History & Physical Date of Admission Dec 30, 2019 Date of Service: Dec 31, 2019 Attending Physician: LILLY FINK MD History and Physical CHIEF COMPLAINT: Command auditory hallucinations HISTORY OF PRESENT ILLNESS: 64 yo W with a history of medication non compliance, rarely sees doctors, reporting a history of an abdominal hernia for which she did not follow through with surgery for repair, diagnosis of DM for which she takes no medications, GERD, HTN, chronic back pain, osteoarthritis, and an extensive psychiatric history of schizophrenia, depression, anxiety and multiple admissions in the [facility] who was originally admitted to the [facility] for command auditory hallucinations on 12/28/2019, whom on nursing examination on arrival to the [facility] was noted to have a variable heart beat with variable heart rate with tachycardia up to 150s. The nurse requested a medicine consult and on stat EKG she had atrial flutter with a rate of 156. She was otherwise asymptomatic, normotensive and reported that she sometimes has palpitations but never worries about it because it does not bother her. She otherwise denied a history of a stroke, asymmetrical weakness, dyspnea, chest pain, abdominal pain, fever, chills, LE swelling, orthopnea or paroxysmal nocturnal dyspnea. I decided to admit her to medicine for newly noted atrial flutter. While on the medicine unit, she was started on metoprol and she ultimately broke and went back in to sinus and was also started on eliquis and consulted Dr. Pedro who recommended continuation of anticoagula tion and rate control. TSH was low with a normal free T4, while EKG was non ischemic, troponin negative, lipid panel showed mild hypertriglyceridemia, CXR was wnl without acute pathology and TTE showed a normal EF. She was medically cleared and transferred back to inpatient mental health on 12/30/2019 for evaluation and treatment of her ongoing auditory hallucinations. At this time s he is medically stable and medicine is consulted for H&P. PAST MEDICAL HISTORY: 1. paroxysmal atrial flutter on eliquis 2. abdominal hernia for which she did not follow through with surgery for repair, not causing her any trouble at this time 3. diagnosis of DM for which she takes no medications 4. GERD 5. HTN 6. chronic back pain 7. osteoarthritis 8. extensive psychiatric history of schizophrenia, depression, anxiety recently admitted to [facility] for auditory command hallucinations PAST SURGICAL HISTORY: Tubal ligation SOCIAL HISTORY: Tobacco use: NO ETOH: NO Illicit drug use: NO FAMILY HISTORY: Non contributory ALLERGIES: Please see below. REVIEW OF SYSTEMS:12 point ROS was reviewed and all the pertinent positives are noted in the HPI above and was otherwise negative. HOME MEDICATIONS: Please see below. Only took aspirin for headaches before 12/28/2019 [facility] admission PHYSICAL EXAMINATION: VITAL SIGNS: Please see below. GENERAL APPEARANCE: Morbidly obese HEENT: NCAT, PERRLA, EOMI, MMM CARDIOVASCULAR: Regular rhythm and rate, no m/r/g noted LUNGS: CTAB ABDOMEN: Large abdominal hernia, nontender, obese, normoactive, soft EXTREMITIES: has bilateral LE edema, WWP NEUROLOGICAL: normal gait, AOx3, without dysarthria PSYCHIATRIC: AOx3 LABS: No new labs. Reviewed prior ASSESSMENT: 64 yo W with a history of medication non compliance, rarely sees doctors, reporting a history of abdominal hernia for which she did not follow through with surgery for repair, diagnosis of DM for which she takes no medications, GED, HTN, chronic back pain, osteoarthritis, and an extensive psychiatric history of schizophrenia, depression, anxiety and multiple admissions in the [facility] who was admitted to the [facility] for command auditory hallucinations and incidentally found to be in Aflutter, requiring brief transfer to internal medicine inpatient for medical optimization, who is now medically cleared and optimized, now back in the [facility] for psychiatric evaluation and treatment. Medicine will sign off at this time. PLAN: Paroxysmal atrial flutter: -continue eliquis 5 BID -continue metoprolol 50 BID DM: -SSI, FSBG AC/HS, hypoglycemia protocol History of schizophrenia, depression, anxiety with ongoing auditory hallucinations: -Per psych team DVT ppx: eliquis PHYSICAL EXAMINATION: VITAL SIGNS: Temperature , pulse , respiratory rate , blood pressure , pulse oximetry % on room air. GENERAL APPEARANCE: . HEENT: . CARDIOVASCULAR: . LUNGS: . ABDOMEN: . MUSCULOSKELETAL: . EXTREMITIES: . NEUROLOGICAL: . PSYCHIATRIC: . LABORATORY DATA: See below. IMAGING: MICROBIOLOGY: Please see below. ASSESSMENT: . . PLAN: 1. . Vital Signs Vital Signs Date Time Temp Pulse Resp B/P (MAP) Pulse Ox O2 Delivery O2 Flow Rate FiO2 12/31/19 07:19 97.9 63 15 126/73 (90) 95 Room Air Laboratory Data Labs 24H Laboratory Tests 2 12/31/19 06:43: Bedside Glucose (Misc Panel) 154H Home Medications Scheduled Apixaban (Eliquis) 5 Mg Tablet, 5 MG PO BID Metoprolol Tartrate (Lopressor) 50 Mg Tablet, 50 MG PO BID Scheduled PRN Aspirin/Acetaminophen/Caffeine (Headache Relief Tablet) 1 Tab Tab, 1 TAB PO Q6H PRN for HEADACHE Allergies Coded Allergies: levofloxacin (Verified Adverse Reaction, Unknown, DIARRHEA, 12/28/19) A-FIB/CHADSVASC A-FIB History Current/History of A-Fib/PAF?: Yes Current PO Anticoag Therapy: Yes LILLY FINK MD Dec 31, 2019 07:39
[2019-12-31] MEDS ORDERED: ARIPiprazole MONOHYDRATE 400 MG INJ (ABILIFY) IM ONE (16:00)
[2019-12-31 16:40] VITALS: BP 125/64
[2019-12-31] MEDS: ARIPiprazole 10 MG TAB PO SCH (21:52)
[2020-01-01] MEDS: traZODone 50 MG TAB PO PRN (00:49)
[2020-01-01 06:13] VITALS: BP 146/82
[2020-01-01] MEDS: HumaLOG INSULIN (NovoLOG) PER UNIT SC SCH ×4 (06:52→20:47)
[2020-01-01] MEDS: APIXABAN 5 MG TAB (ELIQUIS) PO SCH ×2 (08:06→20:46)
[2020-01-01] MEDS: ASPIRIN 81 MG ENTERIC TAB PO SCH (08:06)
[2020-01-01] MEDS: METOPROLOL TART 50 MG TAB PO SCH ×2 (08:06→20:47)
[2020-01-01 08:07] VITALS: BP 122/62
--- NOTE | 2020-01-01 08:26 | MHHPE ---
DATE OF ADMISSION: 12/30/2019 DATE OF EVALUATION: 12/31/2019 HISTORY OF PRESENT ILLNESS: This is a 64-year-old woman with a longstanding history of treatment for schizophrenia and with a longstanding history of noncompliance with treatment. She first presented to the emergency room and was admitted to [facility] 12/28/2019. According to the emergency room records, she was quite disorganized, rambling incoherently, stringing unrelated words together, talking about someone constantly observing her in her apartment and "televisions in the air" and there was really no way to get any significant history from her. So, it turns out that she got admitted to the psychiatric unit. Then, it turns out that right away she started to have a variable heart rate with tachycardia and a medicine consult was requested and on stat EKG she had atrial flutter with a rate of 156 and she was transferred to the medical service. Then, yesterday, she was transferred back to the psychiatric unit. While she was on the medical service, she was seen by Dr. Bello on 12/30/2019 and she describes the patient as paranoid, believing others want to control what she does, that people are always aware of what she does even if they are not with her, and she was talking about hearing voices telling her "nasty things." When I see the patient today, she tells me "I keep hearing voices," but she was very guarded about the content of the voices today. She also tells me that "I'm told that some of my relatives have been seen in [place]." PAST PSYCHIATRIC HISTORY: As I said, she has a history of treatment for schizophrenia and noncompliance with treatment. She tells me she has never made any suicidal attempt. I was able to see the records from her hospitalization in 2018 and at that time she was discharged on Abilify 20 mg twice a day but it sounds like she never complied with doing any followup after that. The patient says she has not been taking any psychiatric medications now. FAMILY HISTORY: She denies any psychiatric illness in the family or any suicides. MEDICAL HISTORY: She says her only medical problems are that she has migraine headaches and she gets pain in her knees sometimes, but when I saw Dr. Bello's consult on 12/30/2019, it mentioned that the patient had a history of diabetes for which she takes no medications, gastroesophageal reflux disease (GERD), hypertension. ABUSE HISTORY: She denies any history of any physical or sexual abuse. SUBSTANCE ABUSE: She does have a history of heavily abusing alcohol but has not drank in many years. She denies any history of abusing any drugs. REVIEW OF SYSTEMS: Vital signs: Blood pressure is 126/73, pulse 63, respiration rate is 15. Appearance: She did not appear in any apparent distress. All other systems were reviewed and found to be negative except for her complaint of pain in her knees. MENTAL STATUS EXAMINATION: The patient was alert, she was oriented times three. She was cooperative. She was wearing her face mask, dressed in hospital clothing. She was not spontaneous, she would answer my questions with simple one or two word answers. There was no formal thought disorder noted. She said that her mood was "okay." Affect was flat. Definitely has auditory hallucinations but she would not tell me the content today and it sounds like she definitely has some paranoid delusions about people always watching her. DIAGNOSIS: Schizophrenia. TREATMENT PLAN: I did see when she was admitted in 2018 that she was discharged on Abilify 20 mg twice a day. I am going to start her on Abilify 10 mg nightly. The patient has agreed to start on Abilify Maintena injection 400 mg intramuscular (IM). I discussed the risk, benefit, and alternative treatment plan with the patient and she was in agreement with the treatment plan to start her on the Abilify. RADHA
--- NOTE | 2020-01-01 11:13 | MHIPNPDOC ---
[facility] Progress Note Progress Note DATE OF SERVICE: 01/01/20 HPI: Janeen presents today for a follow up. She saw a psychiatrist yesterday in the office. Janeen previously had audio hallucinations, which have improved at this time. She denies any suicidal thoughts at this time. MEDICATIONS: Currently taking Abilify and received a shot of the 400 mg recently. She denies any side effects, such as shakiness and jitteriness. Objective Behavior: Somewhat bizzare although amenable and friendly. Speech: Fluid. Thought Form: Somewhat tangential. Some psychotic beliefs found. Judgement: Improving although restricted at times. Insight: Improving although restricted at times. Assessment Unspecified Psychotic disorder Plan Continue Abilify 10 mg daily. Injection of 400 mg Abilify has been given. Monitor for possible discharge on Friday or Friday. Vital Signs Vital Signs Date Time Temp Pulse Resp B/P (MAP) Pulse Ox O2 Delivery O2 Flow Rate FiO2 01/01/20 08:07 66 122/62 (82) 01/01/20 06:13 97.5 18 12/31/19 07:19 95 Room Air Laboratory Data 24H Labs Laboratory Tests 2 12/31/19 12:04: Bedside Glucose (Misc Panel) 131H 12/31/19 17:04: Bedside Glucose (Misc Panel) 177H 12/31/19 21:49: Bedside Glucose (Misc Panel) 186H 01/01/20 06:09: Bedside Glucose (Misc Panel) 179H Current Medications Current Medications Medications (Trade) Dose Ordered Sig/Tracy Route PRN Reason Start Time Stop Time Status Last Admin Dose Admin Acetaminophen (Tylenol Tab) 650 mg Q6HP PRN PO HEADACHE or DISCOMFORT 12/30/19 20:15 Al Hydrox/Mg Hydrox/Simethicone (Mylanta) 30 ml Q4HP PRN PO HEARTBURN/INDIGESTION 12/30/19 20:15 Apixaban (Eliquis) 5 mg BID PO 12/31/19 09:00 01/01/20 08:06 Aripiprazole (AbiLIFY) 10 mg QHS PO 12/31/19 21:00 12/31/19 21:52 Aspirin (Ecotrin) 81 mg DAILY PO 12/31/19 09:00 01/01/20 08:06 Dextrose (Dextrose 50%) 25 ml ASDIRECTED PRN IV SEE LABEL COMMENTS 12/30/19 20:30 Glucagon (Glucagon) 1 mg ASDIRECTED PRN SC SEE LABEL COMMENTS 12/30/19 20:30 Glucose (Glucose) 16 GM ASDIRECTED PRN PO SEE LABEL COMMENTS 12/30/19 20:30 Insulin Human Lispro (HumaLOG INSULIN) See Protocol Table AC SC 12/31/19 07:30 01/01/20 06:52 Insulin Human Lispro (HumaLOG INSULIN) See Protocol Table QHS SC 12/30/19 21:00 Magnesium Hydroxide (Milk Of Magnesia) 30 ml DAILYPRN PRN PO CONSTIPATION 12/30/19 20:15 Metoprolol Succinate (TopROL XL) 50 mg BID PO 12/30/19 21:00 UNV Metoprolol Tartrate (Lopressor) 50 mg BID PO 12/31/19 09:00 01/01/20 08:06 Olanzapine (ZyPREXA ZYDIS) 5 mg Q6HP PRN PO AGITATION 12/30/19 20:15 01/01/20 00:49 Trazodone HCl (Desyrel) 50 mg QHSP PRN PO INSOMNIA 12/30/19 20:15 01/01/20 00:49 Allergies Coded Allergies: levofloxacin (Verified Adverse Reaction, Unknown, DIARRHEA, 12/28/19) MONROE BELTRAN DO Jan 01, 2020 11:13
[2020-01-01 16:31] VITALS: BP 110/72
[2020-01-01] MEDS: ARIPiprazole 10 MG TAB PO SCH (20:46)
[2020-01-02 06:30] VITALS: BP 142/82
[2020-01-02] MEDS: HumaLOG INSULIN (NovoLOG) PER UNIT SC SCH ×4 (06:50→20:58)
[2020-01-02] MEDS: METOPROLOL TART 50 MG TAB PO SCH ×2 (08:24→20:57)
[2020-01-02] MEDS: APIXABAN 5 MG TAB (ELIQUIS) PO SCH ×2 (08:25→20:57)
[2020-01-02] MEDS: ASPIRIN 81 MG ENTERIC TAB PO SCH (08:45)
--- NOTE | 2020-01-02 12:42 | MHIPNPDOC ---
[facility] Progress Note Progress Note DATE OF SERVICE: 01/02/20 HPI: Janeen presents today for a follow up and denies any scary thoughts and hallucinations. She notes of shortness of breath, but it is not a new symptom due to her weight. She denies any fevers or chest pains. MEDICATIONS: She is doing well on Abilify and denies any adverse reactions or side effects. Objective Appearance: Well nourished. Well groomed. Speech: Normal volume. Normal rate. Thought Form: Linear and goal directed. Thought Content: No evidence of delusions. No evidence of suicidal ideation. No thoughts of self harm. No evidence of aggressive or homicidal ideation. Judgement: intact as evidenced by decision making in the recent past. Insight: good insight into symptoms and treatment options. Assessment F23 Brief psychotic disorder Plan Continue Abilify 10 mg daily. Patient got an injection of 400 mg Abilify. Will ascertain effects and likely discharge on Friday or Friday. Vital Signs Vital Signs Date Time Temp Pulse Resp B/P (MAP) Pulse Ox O2 Delivery O2 Flow Rate FiO2 01/02/20 08:24 86 139/77 01/02/20 06:30 99.0 18 12/31/19 07:19 95 Room Air Laboratory Data 24H Labs Laboratory Tests 2 01/01/20 16:58: Bedside Glucose (Misc Panel) 189H 01/01/20 20:43: Bedside Glucose (Misc Panel) 195H 01/02/20 06:13: Bedside Glucose (Misc Panel) 157H 01/02/20 12:03: Bedside Glucose (Misc Panel) 120H Current Medications Current Medications Medications (Trade) Dose Ordered Sig/Tracy Route PRN Reason Start Time Stop Time Status Last Admin Dose Admin Acetaminophen (Tylenol Tab) 650 mg Q6HP PRN PO HEADACHE or DISCOMFORT 12/30/19 20:15 Al Hydrox/Mg Hydrox/Simethicone (Mylanta) 30 ml Q4HP PRN PO HEARTBURN/INDIGESTION 12/30/19 20:15 Apixaban (Eliquis) 5 mg BID PO 12/31/19 09:00 01/02/20 08:25 Aripiprazole (AbiLIFY) 10 mg QHS PO 12/31/19 21:00 01/01/20 20:46 Aspirin (Ecotrin) 81 mg DAILY PO 12/31/19 09:00 01/02/20 08:45 Dextrose (Dextrose 50%) 25 ml ASDIRECTED PRN IV SEE LABEL COMMENTS 12/30/19 20:30 Glucagon (Glucagon) 1 mg ASDIRECTED PRN SC SEE LABEL COMMENTS 12/30/19 20:30 Glucose (Glucose) 16 GM ASDIRECTED PRN PO SEE LABEL COMMENTS 12/30/19 20:30 Insulin Human Lispro (HumaLOG INSULIN) See Protocol Table AC SC 12/31/19 07:30 01/02/20 12:05 Insulin Human Lispro (HumaLOG INSULIN) See Protocol Table QHS SC 12/30/19 21:00 Magnesium Hydroxide (Milk Of Magnesia) 30 ml DAILYPRN PRN PO CONSTIPATION 12/30/19 20:15 Metoprolol Succinate (TopROL XL) 50 mg BID PO 12/30/19 21:00 UNV Metoprolol Tartrate (Lopressor) 50 mg BID PO 12/31/19 09:00 01/02/20 08:24 Olanzapine (ZyPREXA ZYDIS) 5 mg Q6HP PRN PO AGITATION 12/30/19 20:15 01/01/20 00:49 Trazodone HCl (Desyrel) 50 mg QHSP PRN PO INSOMNIA 12/30/19 20:15 01/01/20 00:49 Allergies Coded Allergies: levofloxacin (Verified Adverse Reaction, Unknown, DIARRHEA, 12/28/19) MONROE BELTRAN DO Jan 02, 2020 12:42
[2020-01-02 16:33] VITALS: BP 130/66
[2020-01-02] MEDS: ARIPiprazole 10 MG TAB PO SCH (20:57)
[2020-01-02] MEDS: traZODone 50 MG TAB PO PRN (20:57)
[2020-01-03 06:47] VITALS: BP 123/62
[2020-01-03] MEDS: HumaLOG INSULIN (NovoLOG) PER UNIT SC SCH ×2 (07:00→11:51)
[2020-01-03] MEDS: ASPIRIN 81 MG ENTERIC TAB PO SCH (08:43)
[2020-01-03] MEDS: APIXABAN 5 MG TAB (ELIQUIS) PO SCH (08:43)
[2020-01-03 08:44] VITALS: BP 141/79
[2020-01-03] MEDS: METOPROLOL TART 50 MG TAB PO SCH (08:44)
--- NOTE | 2020-01-03 09:19 | MHDSPDOC ---
[facility] Discharge Summary Discharge Summary DATE OF ADMISSION: Dec 30, 2019 at 21:50 DATE OF DISCHARGE:Jan 03, 2020 at 14:25 DISCHARGE DIAGNOSES: Bipolar disorder,'s most recent episode manic, severe REASON FOR ADMISSION: 64-year-old woman with long history of bipolar and psychotic disorder present psychotic and distorted CONSULTANTS INVOLVED:[ None (basic hospitalist screening)] TREATMENT AND PROGRESS ON THE UNIT : Medication changes: start on Abilify as she had done well in the past titrated 10 mg daily, accepted 400 mg injection of long-acting depot of Abilify Behavior on unit: improved as she clinically improved, becoming much more friendly and amenable Treatment attendance: attended more as she improved Notable issues on presentation: none State on discharge: [improved] DISCHARGE ASSESSMENT: The patient a 64 year old woman, with likely psychosis related to chronic severe mental illness, presented to [facility], where they treated with appropriate antipsychotic and long-acting injectable to ensure compliance where they make significant progress. Legal status considerations: The patient at the time of discharge did not meet criteria for involuntary admission/extension due to having a improved mental status exam, improved insight into the situation, They are engaged in the discharge process, as well as being friendly and amenable in behavioral control and havent been engaging in any observed concerning behavior or ideation recently. They decline voluntary extension/admission at this time and must be discharged in good matias, as Im unable to make a case for holding the patient against their will. They may have historical risk factors of admissions and other interactions with psychiatry however, those are not modifiable from a clinical perspective. The patient will need to be discharged in good matias. MENTAL STATUS EXAMINATION ON DISCHARGE: General: [Well dressed with good hygiene] Speech: [Spontaneous and fluid] Thought processes: [Linear and logical] Thought content: [Future orientated] Abstract reasoning, and computation: [Intact] Description of associations: improved Description of abnormal or psychotic thoughts:[Denies any suicidal or homicidal ideation. Denies any auditory or visual hallucinations. Does not appear to be responding to internal stimuli. Does not appear to be endorsing any bizarre or paranoid ideation.] Judgment: improved Insight: improved Orientation: [Alert and orientated 3] Recent and remote memory: [Intact] Attention span and concentration: [Intact] Fund of knowledge: [Adequate] Mood: ["okay"] Affect: [Euthymic with a full range] PLAN/FOLLOWUP ARRANGEMENTS: Follow up appointments made (PCP and MH in 5 days of D/C date) and safety plan completed. Safety Planning aspects completed prior to discharge [Medication supplies limited to 7 days with 4 refills to prevent accumulation to OD] [RN reviewed crisis hotline information and other aspects to empower patient to access care in interim before next appointment.] Injectable antipsychotics used to reduce the risk of noncompliance The amount of time spent in the coordination of care for this patient was a pproximately 30 minutes. Vital Signs/I&Os Vital Signs Date Time Temp Pulse Resp B/P (MAP) Pulse Ox O2 Delivery O2 Flow Rate FiO2 01/03/20 08:44 90 141/79 01/03/20 06:47 96.7 16 Room Air 12/31/19 07:19 95 Laboratory Data Labs 24H Laboratory Tests 2 01/02/20 12:03: Bedside Glucose (Misc Panel) 120H 01/02/20 17:05: Bedside Glucose (Misc Panel) 154H 01/02/20 20:53: Bedside Glucose (Misc Panel) 171H 01/03/20 06:12: Bedside Glucose (Misc Panel) 169H Medications Scheduled Apixaban (Eliquis) 5 Mg Tablet, 5 MG PO BID for 30 Days, #60 Aripiprazole (Abilify) 10 Mg Tablet, 10 MG PO QHS for mood for 7 Days, #7 Aripiprazole (Abilify Maintena) 400 Mg Suser.syr, 400 MG IM Q4WKS for mood for 28 Days, #400 next inject 01/31/20 Metoprolol Tartrate (Lopressor) 50 Mg Tablet, 50 MG PO BID for 30 Days, #60 Scheduled PRN Aspirin/Acetaminophen/Caffeine (Headache Relief Tablet) 1 Tab Tab, 1 TAB PO Q6H PRN for HEADACHE, (Reported) Allergies Coded Allergies: levofloxacin (Verified Adverse Reaction, Unknown, DIARRHEA, 12/28/19) MONROE BELTRAN DO Jan 03, 2020 09:19
[2020-01-03] MEDS ORDERED: ABIL10TA9 PO (09:23)
[2020-01-03] MEDS ORDERED: ABIL1INJ2 IM (09:23)
== END 2020-01-03 14:25 | disposition home or self-care (01) | DRG 885 ==
LOC: M PSY 21:50
PROVIDERS: ADMIT Psychiatry & Neurology Psychiatry; ATTEND Psychiatry & Neurology Addiction Medicine
DX: F31.13 Bipolar disorder, current episode manic without psychotic features, severe (principal); I48.92 Unspecified atrial flutter; F20.9 Schizophrenia, unspecified; E11.9 Type 2 diabetes mellitus without complications; K21.9 Gastro-esophageal reflux disease without esophagitis; I10 Essential (primary) hypertension; M54.9 Dorsalgia, unspecified; M19.90 Unspecified osteoarthritis, unspecified site; K46.9 Unspecified abdominal hernia without obstruction or gangrene; Z79.01 Long term (current) use of anticoagulants; Z79.899 Other long term (current) drug therapy; Z88.8 Allergy status to other drugs, medicaments and biological substances

== ENCOUNTER 2020-07-10 12:34 | Inpatient (IN) | payer MEDICARE, OTHER, MEDICAID ==
[~2020-07-10] VITALS: Ht 167.6 cm; Wt 116.0 kg
[~2020-07-10 12:34] MED LIST changes: +ABIL10TA9 PO; +ABIL1INJ2 IM
--- OUTSIDE RECORDS SUMMARY | 2020-07-10 12:41 | CCD ---
Author Author [facility] Organization [facility] Address Unknown Phone Unavailable Care Team Providers Care Window Shade Cutter And Mounter Name Role Phone Van, A Loni WOOD FLOOR REFINISHER Unavailable Unavailable Van, A Loni WOOD FLOOR REFINISHER Unavailable Unavailable Van, A Loni WOOD FLOOR REFINISHER Unavailable Unavailable Van, A Loni WOOD FLOOR REFINISHER Unavailable Unavailable Van, A Loni WOOD FLOOR REFINISHER Unavailable Unavailable Van, A Loni WOOD FLOOR REFINISHER Unavailable Unavailable Van, A Loni WOOD FLOOR REFINISHER Unavailable Unavailable Van, A Loni WOOD FLOOR REFINISHER Unavailable Unavailable Van, A Loni WOOD FLOOR REFINISHER Unavailable Unavailable Van, A Loni WOOD FLOOR REFINISHER Unavailable Unavailable Van, A Loni WOOD FLOOR REFINISHER Unavailable Unavailable Van, A Loni WOOD FLOOR REFINISHER Unavailable Unavailable Van, A Loni WOOD FLOOR REFINISHER Unavailable Unavailable Van, A Loni WOOD FLOOR REFINISHER Unavailable Unavailable Van, A Loni WOOD FLOOR REFINISHER Unavailable Unavailable Van, A Loni WOOD FLOOR REFINISHER Unavailable Unavailable Van, A Loni WOOD FLOOR REFINISHER Unavailable Unavailable Van, A Loni WOOD FLOOR REFINISHER Unavailable Unavailable Van, A Loni WOOD FLOOR REFINISHER Unavailable Unavailable Van, A Loni WOOD FLOOR REFINISHER Unavailable Unavailable Van, A Loni WOOD FLOOR REFINISHER Unavailable Unavailable Van, A Loni WOOD FLOOR REFINISHER Unavailable Unavailable Van, A Loni WOOD FLOOR REFINISHER Unavailable Unavailable Van, A Loni WOOD FLOOR REFINISHER Unavailable Unavailable Van, A Loni WOOD FLOOR REFINISHER Unavailable Unavailable Van, A Loni WOOD FLOOR REFINISHER Unavailable Unavailable Van, A Loni WOOD FLOOR REFINISHER Unavailable Unavailable Delisa Pedro MD Unavailable Unavailable Delisa Pedro MD Unavailable Unavailable Delisa Pedro MD Unavailable Unavailable Delisa Pedro MD Unavailable Unavailable Delisa Pedro MD Unavailable Unavailable Delisa Pedro MD Unavailable Unavailable Delisa Pedro MD Unavailable Unavailable Delisa Pedro MD Unavailable Unavailable Delisa Pedro MD Unavailable Unavailable Delisa Pedro MD Unavailable Unavailable Delisa Pedro MD Unavailable Unavailable Delisa Pedro MD Unavailable Unavailable Delisa Pedro MD Unavailable Unavailable Delisa Pedro MD Unavailable Unavailable Delisa Pedro MD Unavailable Unavailable Delisa Pedro MD Unavailable Unavailable Delisa Pedro MD Unavailable Unavailable Delisa Pedro MD Unavailable Unavailable Delisa Pedro MD Unavailable Unavailable Delisa Pedro MD Unavailable Unavailable Delisa Pedro MD Unavailable Unavailable Delisa Pedro MD Unavailable Unavailable Delisa Pedro MD Unavailable Unavailable Delisa Pedro MD Unavailable Unavailable Delisa Pedro MD Unavailable Unavailable Delisa Pedro MD Unavailable Unavailable Delisa Pedro MD Unavailable Unavailable Delisa Pedro MD Unavailable Unavailable Delisa Pedro MD Unavailable Unavailable Delisa Pedro MD Unavailable Unavailable Delisa Pedro MD Unavailable Unavailable Delisa Pedro MD Unavailable Unavailable Delisa Pedro MD Unavailable Unavailable Delisa Pedro MD Unavailable Unavailable Delisa Pedro MD Unavailable Unavailable Delisa Pedro MD Unavailable Unavailable Delisa Pedro MD Unavailable Unavailable Slezka, Vojtech MD Unavailable Unavailable Slezka, Vojtech MD Unavailable Unavailable Slezka, Vojtech MD Unavailable Unavailable Slezka, Vojtech MD Unavailable Unavailable Slezka, Vojtech MD Unavailable Unavailable Slezka, Vojtech MD Unavailable Unavailable Slezka, Vojtech MD Unavailable Unavailable Slezka, Vojtech MD Unavailable Unavailable Slezka, Vojtech MD Unavailable Unavailable Slezka, Vojtech MD Unavailable Unavailable Slezka, Vojtech MD Unavailable Unavailable Slezka, Vojtech MD Unavailable Unavailable Slezka, Vojtech MD Unavailable Unavailable Slezka, Vojtech MD Unavailable Unavailable Slezka, Vojtech MD Unavailable Unavailable Slezka, Vojtech MD Unavailable Unavailable Slezka, Vojtech MD Unavailable Unavailable Slezka, Vojtech MD Unavailable Unavailable Slezka, Vojtech MD Unavailable Unavailable Slezka, Vojtech MD Unavailable Unavailable [facility], JLAFLEUR Unavailable Unavailable Loni Araujo WOOD FLOOR REFINISHER WOOD FLOOR REFINISHER Unavailable Unavailable EGORHO, F VLAD FPMHNP Unavailable Unavailable EGORHO, F VLAD FPMHNP Unavailable Unavailable EGORHO, F VLAD FPMHNP Unavailable Unavailable EGORHO, F VLAD FPMHNP Unavailable Unavailable EGORHO, F VLAD FPMHNP Unavailable Unavailable EGORHO, F VLAD FPMHNP Unavailable Unavailable Re-disclosure Warning The records that you are about to access may contain information from federally-assisted alcohol or drug abuse programs. If such information is present, then the following federally mandated warning applies: This information has been disclosed to you from records protected by federal confidentiality rules (42 CFR part 2). The federal rules prohibit you from making any further disclosure of this information unless further disclosure is expressly permitted by the written consent of the person to whom it pertains or as otherwise permitted by 42 CFR part 2. A general authorization for the release of medical or other information is NOT sufficient for this purpose. The Federal rules restrict any use of the information to criminally investigate or prosecute any alcohol or drug abuse patient.The records that you are about to access may contain highly sensitive health information, the redisclosure of which is protected by Article 27-F of the [place] State Public Health law. If you continue you may have access to information: Regarding HIV / AIDS; Provided by facilities licensed or operated by the [facility] Office of Mental Health; or Provided by the [facility] Office for People With Developmental Disabilities. If such information is present, then the following [facility] mandated warning applies: This information has been disclosed to you from confidential records which are protected by state law. State law prohibits you from making any further disclosure of this information without the specific written consent of the person to whom it pertains, or as otherwise permitted by law. Any unauthorized further disclosure in violation of state law may result in a fine or fci sentence or both. A general authorization for the release of medical or other information is NOT sufficient authorization for further disc losure. Allergies and Adverse Reactions Type Description Substance Reaction Status Data Source(s ) Propensity to adverse reactions to substance nkda 24 HR Bupropion Hydrochloride 150 MG Extended Release Oral Tablet Active [facility] ([facility]) Encounters Encounter Providers Location Date Indications Data Source(s ) Outpatient Attender: VLAD GARNETT [facility] 02/29/2020 10:00:00 AM EDT - 02/29/2020 10:00:00 AM EDT [facility] ([facility]) Attender: VLAD BATISTABERNARDINO 02/29/2020 12:00: 00 AM EDT [facility] ([facility]) Outpatient Attender: Delisa Pedro MD [email or web address] 12/22 12:00:00 AM EDT - 01/19/2020 02:23:26 PM EDT [facility] Outpatient Attender: MARIBELL REYNA 01/07/2020 02:57:00 P M EDT [facility] Outpatient Attender: MARIBELL REYNA 01/07/2020 02:54:00 P M EDT [facility] Outpatient Attender: MARIBELL REYNA 01/07/2020 02:53:00 P M EDT [facility] 01:20:01 P M EDT [facility] Outpatient Attender: MARIBELL REYNA 01/06/2020 01:18:00 P M EDT [facility] Outpatient Attender: MARIBELL REYNA 01/06/2020 01:17:01 P M EDT [facility] Outpatient Attender: Loni Van RIOSP FP 01/06/2020 11:1 6:03 AM EDT [facility] Outpatient Attender: MARIBELL Van WOOD FLOOR REFINISHER FP 01/06/2020 10:51:00 A M EDT [facility] Outpatient Attender: MARIBELL Van WOOD FLOOR REFINISHER FP 01/06/2020 10:50:00 A M EDT [facility] Outpatient Attender: MARIBELL RIOSP FP 01/05/2020 05:06:01 P M EDT [facility] Outpatient Attender: Loni Van RIOSP FP 01/05/2020 03:4 2:00 PM EDT [facility] Outpatient Attender: MARIBELL RIOSP FP 01/05/2020 11:50:00 A M EDT [facility] Outpatient Attender: MARIBELL RIOSP FP 01/03/2020 12:07:01 P M EDT [facility] Outpatient Attender: MARIBELL Araujo WOOD FLOOR REFINISHER FP 12/03/2019 09:36:01 A M EDT [facility] Outpatient Attender: Loni Araujo WOOD FLOOR REFINISHER FP 12/01/2019 03:4 4:00 PM EDT [facility] Outpatient Attender: MARIBELL RIOSP FP 11/03/2019 02:47:00 P M EDT [facility] Outpatient Attender: MARIBELL Araujo WOOD FLOOR REFINISHER FP 09/17/2019 08:01:14 P M EDT [facility] Outpatient Attender: MARIBELL RIOSP FP 05/19/2019 09:01:01 P M [facility] Outpatient Attender: MARIBELL RIOSP FP 05/19/2019 08:40:00 A M [facility] Outpatient Attender: JONE MAR FP 05/17/2019 09:01:01 PM [facility] Outpatient Attender: JONE FREEDMAN FP 05/17/2019 03:04:01 PM [facility] Outpatient Attender: JONE FREEDMAN FP 05/17/2019 03:00:01 PM [facility] Outpatient Attender: JONE FREEDMAN FP 05/17/2019 02:59:00 PM [facility] Outpatient Attender: JONE FREEDMAN FP 05/17/2019 02:06:03 PM [facility] 02:05:01 PM [facility]17/2019 01:10:01 PM [facility]/2019 01:08:01 PM [facility] Outpatient Attender: JONE [facility] 05/17/2019 01:06:00 PM [facility] Functional Status Medications Medication Brand Name Start Date Product Form Dose Route Admi nistrative Instructions Pharmacy Instructions Status Indications Reaction Description Data Source(s) 10 mg 02/02/2020 12:00:00 AM EDT tablet 30 TAKE ONE TABLET BY MOUTH EVERY DAY TAKE ONE TABLET BY MOUTH EVERY DAY SOLD: 02/03/2020 [facility] 400 mg 02/02/2020 12:00:00 AM EDT suspension,extended rel syring 1 INJECT 400MG INTRAMUSCULARLY ONCE EVERY FOUR WEEKS INJECT 400MG INTRAMUSCULARLY ONCE EVERY FOUR WEEKS SOLD: 02/03/2020 [facility] aripiprazole 10 MG Oral Tablet aripiprazole 02/01/2020 12:00:00 AM ED T 10 mg by mouth completed [id number] aripiprazole by mouth [id number] 0 02/01/2020 03/02/2020 once a day 30 10 mg tablet [id number] Nikko brown Egorho [id number] Nurse Practitioner [facility] ([facility]) 10 mg 01/03/2020 12:00:00 AM EDT tablet 7 TAKE ONE TABLET BY MOUTH EVERY DAY AT BEDTIME FOR MOOD TAKE ONE TABLET BY MOUTH EVERY DAY AT BEDTIME FOR MOOD SOLD: 01/27/2020 [facility] 400 mg 01/03/2020 12:00:00 AM EDT suspension,extended rel syring 1 INJECT 400MG INTRAMUSCULARLY ONCE EVERY 4 WEEKS FOR MOOD INJECT 400MG INTRAMUSCULARLY ONCE EVERY 4 WEEKS FOR MOOD SOLD: 01/04/2020 [facility] 10 mg 01/03/2020 12:00:00 AM EDT tablet 7 TAKE ONE TABLET BY MOUTH EVERY DAY AT BEDTIME FOR MOOD TAKE ONE TABLET BY MOUTH EVERY DAY AT BEDTIME FOR MOOD SOLD: 01/04/2020 [facility] 10 mg 01/03/2020 12:00:00 AM EDT tablet 7 TAKE ONE TABLET BY MOUTH EVERY DAY AT BEDTIME FOR MOOD TAKE ONE TABLET BY MOUTH EVERY DAY AT BEDTIME FOR MOOD SOLD: 01/12/2020 [facility] Insurance Providers Payer name Policy type / Coverage type Policy ID Covered alliance party ID Covered alliance party's relationship to sarmiento Policy Sarmiento [id number] SP [id number] MEDICARE [id number] SP [id number] MEDICARE COMPLETE [id number] SP [id number] MEDICARE [id number] SP [id number] [facility] MEDICARE [id number] Sunshine [id number] [facility] Secure Horizons P [id number] S [id number] Medicaid S [id number] S [id number] [facility] Secure Horizons P [id number] S [id number] EMEDNY [id number] SP [id number] [facility] MCRO [id number] SP [id number] [facility] Secure Horizons P [id number] S [id number] MEDICAID [id number] SP [id number] MEDICAID M [id number] S [id number] MEDICARE C [id number] S [id number] [facility] [id number] SP [id number] MEDICAID [id number] SP [id number] [facility] Secure Horizons P [id number] S [id number] Medicaid S [id number] S [id number] SELF PAY ONLY [id number] SP [id number] [facility] Secure Horizons P [id number] S [id number] Medicare S [id number] S [id number] A MEDICARE [id number] SP [id number] A Managed Care - Community Plan [facility] P [id number] S [id number] Medicare P [id number] S [id number] A Medicaid S [id number] S [id number] Managed Care - Community Plan [facility] P [id number] S [id number] [facility] [id number] SP [id number] Managed Care - Community Plan [facility] P [id number] S [id number] Medicaid S [id number] S [id number] Managed Care BCBS O [id number] S [id number] [facility] [id number] SP [id number] [facility] [id number] SP [id number] Problems, Conditions, and Diagnoses Code Display Name Description Problem Type Effective Dates Data Source(s) F32.0 Major depressive disorder, single episod e, mild Major Depressive Disorder, Single episode, Mild Condition 02/29/2020 12:00:00 AM EDT [facility] ([facility]) 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 Other Specified Schizophrenia Spectrum and Other Psych otic Disorder Condition 02/29/2020 12:00:00 AM EDT [facility] ([facility]) 525.10 Teeth extraction Teeth extraction 05/17/2019 02 :04:23 PM EST [facility] I48.92 Unspecified atrial flutter Unspecified atrial flutter Diagnosis 01/19/2020 12:54:58 PM EDT [facility] Surgeries/Procedures Procedure Description Date Indications Data Source(s) OFFICE OUTPATIENT VISIT 15 MINUTES 02/28 12:00:00 AM EDT - 02/29/2020 12:00:00 AM EDT [facility] ([facility]) OFFICE OUTPATIENT VISIT 15 MINUTES 02/29/2020 12:00:00 AM EDT [facility] ([facility]) Results ID Date Data Source [id number] 01/06/2020 10:48:24 AM EDT [facility] Measurements & CalculationsHeight: 67 inches (5 ft. 7 in.) 170.18 cm Weight: 273 pounds 124.09 kg Body Mass Index (BMI): 42.91BMI Interpretation: Morbidly ObeseBody Surface Area (BSA): 2.31Weight Management Education Done (Nutrition/Physical Activity)Vital SignsTemperature: 98.4FPulse Rate: 76 beats/minuteRespiratory Rate: 18 respirations/minuteBlood Pressure: 113/74 O2 Saturation: 94% Vital Signs performed by: Lor Tobias MA, January 06, 2020 10:59 AMInitial Intake Information From: patientRoom #: 14Infectious Disease / Travel ScreeningRecent travel for you or any close contacts? NoHave you had any close contact with anyone diagnosed with or under investigation for COVID-19 (coronavirus)? NoFever? NoRespiratory symptoms: cough, cold, congestion, shortness of breath, difficulty breathing? NoLoss of smell? NoLoss of taste? NoSmoking, Tobacco, Vaping or Smoke Exposure StatusSmoke Status: former smokerTobacco Use: NoDo you vape? NoMenstrual HistoryAny possibility of ? NoHealthcare HistorySince your last office visit...Have you been admitted to the hospital? Yes - [facility] IMHHave you been to an emergency room (ER) or urgent care clinic? NoHave you seen another healthcare provider? NoHave you seen a dentist? NoIntake performed by: Lor Tobias MA, January 06, 2020 10:51 AMRate Your HealthIn general, would you say your health is? Very GoodPain AssessmentAre you currently having any pain which... You would like your provider to address? No Affects your activity level? NoDepression Screening - PHQ-2Over the last two weeks, have you... Had little interest or pleasure in doing things? Several days Been feeling down, depressed, or hopeless? Several days PHQ-2 Score: 2Anxiety Screening - MARCO-2Over the last two weeks, have you been... Feeling nervous, anxious, or on edge? Several days MARCO-2 Score: 3Generalized Anxiety Disorder 7-Item Screening (MARCO-7)Answer Guide:0 = Not at all1 = Several days2 = Over half the days3 = Nearly every dayOver the last 2 weeks, how often have you been bothered by the following problems?Feeling nervous, anxious, or on edge: 1Not being able to stop or control worryinWorrying too much about different things: 2Trouble relaxinBeing so restless that it's hard to sit still: 0Becoming easily annoyed or irritable: 2Feeling afraid as if something awful might happen: 1Answer Guide:0 = Not difficult at all1 = Somewhat difficult2 = Very difficult3 = Extremely difficultHow difficult have these made it for you to do your work, take care of things at home, or get along with other people? 1GAD-7 Screening Results MARCO-2 Score: 3GAD-7 Score: 9Functional Impairment: Somewhat difficultRecommendation: Mild anxietyPHQ-9 1. Over the last 2 weeks, patient reports the following frequency of symptoms: a. Little interest or pleasure in doing things - Several days b. Feeling down, depressed, or hopeless -Several days c. Trouble falling asleep, staying asleep, or sleeping too much -Not at all d. Feeling tired or having little energy -Several days e. Poor appetite or overeating -Nearly every day f. Feeling bad about yourself, feeling that you are a failure, or feeling that you have let yourself or your family down -Nearly every day g. Trouble concentrating on things such as reading the newspaper or watching television -Several days h. Moving or speaking so slowly that other people could have noticed. Or being so fidgety or restless that you have been moving around a lot more than usual -Not at all i. Thinking that you would be better off or that you want to hurt yourself in some way -Not at all2. If you checked off any problems, how difficult have these problems made it for you to do your work, take care of things at home, or get along with other people? -Somewhat DifficultToday's PHQ-9 Results Score: 10 Severity: Moderate Diagnosis Recommendation: No recommendation Functional Impairment: Somewhat DifficultScreening, Brief Intervention, & Referral to Treatment (SBIRT)Pre-Screening Questions How many times have you have 4 or more drinks in a day? 0How many times have you used an illegal drug or used a prescription medication for a non-medical reason? 0Performed by: Lor Tobias MA, January 06, 2020 10:51 AMPatient History Social/Personal History: Chief ComplaintHDHistory of Present Illness (HPI)Recently hospitalized for worsenng of her schizophrenia. Started on Abilify and doing better now. Seeng Psychiatrist in one week. No thoughts of self harm.Also had atrial flutter as a an inpatient and this was assessed. She has an appointment with her Edge Molder in 2 weeks. Has had issues in the past with atrial fibrillation. Currently asymptomatic.HPI performed by: Ventura Medellin MD, January 06, 2020 11:03 AMTransitions of Care Inbound Problem ReviewProblem List was reviewed and/or updated during this visit.Medication Reconciliation & ReviewMedication List was reviewed and/or updated during this visit, including review of any hzmw-jiz-stianan medications, herbal therapies, and/or supplements.Allergy ReviewAllergy List was reviewed and/or updated during this visit.Adult Preventive CareLabs/Meds/Other Counseling-Nutrition and Physical Activity:BMI Interpretation: Morbidly Obese (01/06/2020) Counseling: Done (01/06/2020) Physical Activity: Done (01/06/2020)Cancer Screening Mammogram Reviewed: Previous Comments: 2-3years ago unsure of where (02/18/2018)Today's Comments: SMCColorectal Screening: Patient refused colorectal screeningReview of Systems General: Denies chills, dizziness, fatigue, fever. Cardiovascular: Denies chest pain. Respiratory: Denies shortness of breath. Gastrointestinal: Denies constipation. Genitourinary: Denies burning with urination. Physical ExamGeneral Appearance: well nourished, well hydrated, no acute distressRespiratory, Auscultation: clear to auscultation bilaterally; no rales, rhonchi, or wheezesRespiratory, Effort: no intercostal retractions or use of accessory musclesCardiovascular, Auscu ltation: S1, S2 audible; no murmur, rub, or gallop; RRRGait & Station: normalSkin, Inspection: no rashes, lesions, or ulcerationsOrientation: oriented to time, place, and personMood & Affect: no depression, anxiety, or agitationJudgment & Insight: intactCare Management Plan Transitions of CareInboundRate Your HealthIn general, would you say your health is? Very GoodAssessment & Plan Problems:Assessed:Schizophrenia (ICD-295.90) (ZZN10-K69.9) Assessment: Instructions: With recent hospital admit.Doing much better now.Continue current plan and recheck as scheduled with Psychiatrist next week.Unspecified atrial fibrillation (EDY97-B39.91) Assessment: Instructions: With recent flare of this while inpatient.Currently symptoms free.Keep appointment in 2 weeks with Edge Molder.Patient Instructions/Care Plan: Schizophrenia: With recent hospital admit.Doing much better now.Continue current plan and recheck as scheduled with Psychiatrist next week.Unspecified atrial fibrillation: With recent flare of this while inpatient.Currently symptoms free.Keep appointment in 2 weeks with Edge Molder. Plan developed in collaboration with patient and/or familyMedications:ABILIFVika MA INTENA 400 MG INTRAMUSCULAR PREFILLED SYRINGEABILIFY 10 MG ORAL TABLETADULT ASPIRIN REGIMEN 81 MG ORAL TABLET DELAYED RELEASEALCOHOL WIPES PADBLOOD GLUCOSE TEST IN VITRO STRIPLANCETSMedication Changes:Added: ABILIFY 10 MG ORAL TABLETABILIFY MAINTENA 400 MG INTRAMUSCULAR PREFILLED SYRINGERemoved:CARVEDILOL 12.5 MG ORAL TABLET-by mouth, twice a day for htn, DOCUSATE SODIUM 100 MG ORAL CAPSULE-by mouth, twice a day for constipation, TRAZODONE HCL 50 MG ORAL TABLET- by mouth, at bedtime as needed for insomnia, ABILIFY 10 MG ORAL TABLET-by mouth twice daily for mood, ABILIFY MAINTENA 400 MG INTRAMUSCULAR SUSPENSION RECONSTITUTED ER-IM, every 4 weeks for psychosis for 28 days, ARISTADA 882 MG/3.2ML INTRAMUSCULAR PREFILLED SYRINGE-IM, every 8 weeksAllergies:AMOXICILLIN (Moderate)Orders:Adult - Ofc Vst, EST, Level III [CPT-42634] Name Value Range Interpretation Code Description Data Xochitl rce(s) Supporting Document(s) ID Date Data Source [id number] 05/17/2019 01:06:02 PM [facility] Current Problems: Teeth extraction (ICD- 525.10) (IKQ83-V74.499)depression (ICD- 311) (MDX53-O33.9)Bipolar disorder (ICD-296.80) (PTN86-N37.9)Schizophrenia (ICD- 295.90) (ZQC97-Z95.9)Unspecified atrial fibrillation (LGQ87-Z44.91)BMI 38.0-38.9 (ICD-V85.38) (UXZ07-Z38.38)Localized swelling, mass and lump, left lower limb (ICD-729.81) (SNM46-L57.42)Cellulitis of lower limb (ICD-682.6) (CFJ32-T49.119)Constipation (ICD-564.00) (HWU84-R84.00)upper respiratory infection (ICD-465.9) (KUK29-J99.9)Vaccination (ICD-V05.9) (ICD10- Z23)Unspecified idiopathic peripheral neuropathy (ICD-356.9) (JPK41-K65.9)Dysthymic Disorder (ICD-300.4) (CBV76-Z63.1)Psychotic Disorder NOS (ICD-298.9) (HNH22-J18)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) (KBH66-J34.1)Health Screening (ICD-V70.0) (VJK67-H10.9)PHARYNGITIS (ICD-462) (XWW18-U07.9)SHINGLES (ICD-053.9) (CKN17-H17.9)SPECIAL SCREENING FOR MALIGNANT NEOPLASMS COLON (ICD- V76.51) (FFY08-F12.11)TONGUE DISORDER (ICD-529.9) (XYC68-L18.9)OBESITY (ICD- 278.00) (JBX09-A81.9)NONDEPENDENT TOBACCO USE DISORDER (ICD-305.1) (ICD10- Z72.0)OTHER DISORDERS OF BONE AND CARTILAGE OTHER (ICD-733.99)OTHER SCREENING BREAST EXAMINATION (ICD-V76.19) (FHI81-F09.39)SCREENING FOR MALIGNANT NEOPLASM OF THE CERVIX (ICD-V76.2) (OKS13-T65.4)HYPERLIPIDEMIA (ICD-272.4) (ICD10- E78.5)PSORIASIS, FEET (ICD-696.1) (SBF51-X55.9)ECZEMA, ATOPIC (ICD-691.8) (JME33-J15.9)UNSPECIFIED ADJUSTMENT REACTION (ICD-309.9) (YQQ28-S28.20)VITAMIN D DEFICIENCY (ICD-268.9) (FPE08-R35.9)THYROID NODULE (ICD-241.0) (ICD10- E04.1)CALLUSES, FEET, BILATERAL (ICD-700) (ZXX11-Z48)DIABETES, TYPE 2 (ICD- 250.00) (PCO13-P50.9)Current Medications: CARVEDILOL 12.5 MG ORAL TABLET (CARVEDILOL) by mouth, twice a day for htn; Route: ORALDOCUSATE SODIUM 100 MG ORAL CAPSULE (DOCUSATE SODIUM) by mouth, twice a day for constipation; Route: ORALTRAZODONE HCL 50 MG ORAL TABLET (TRAZODONE HCL) by mouth, at bedtime as needed for insomnia; Route: ORALADULT ASPIRIN REGIMEN 81 MG ORAL TABLET DELAYED RELEASE (ASPIRIN) by mouth, daily for cad; Route: ORALARISTADA 882 MG/3.2ML INTRAMUSCULAR PREFILLED SYRINGE (ARIPIPRAZOLE LAUROXIL) IM, every 8 weeks; Route: INTRAMUSCULARABILIFY MAINTENA 400 MG INTRAMUSCULAR SUSPENSION RECONSTITUTED ER (ARIPIPRAZOLE) IM, every 4 weeks for psychosis for 28 days; Route: INTRAMUSCULARABILIFY 10 MG ORAL TABLET (ARIPIPRAZOLE) by mouth twice daily for mood; Route: ORALALCOHOL WIPES PAD (ALCOHOL SWABS) use as directed to test blood sugar twice weekly. DX:250.00BLOOD GLUCOSE TEST IN VITRO STRIP (GLUCOSE BLOOD) use to test blood glucose daily Dx code 250.00LANCETS (LANCETS) test twice weekly, once before breakfast, and once before dinner. Dx 250.00Current Allergies: AMOXICILLIN (Moderate) Dental Chart: Procedures:Type - CDT Code - Description B - (D0140) Limited oral evaluation - problem focused on Tooth # 12 (Performed by Chayito Farr DMD) B - (D0220) Intraoral, periapical, first radiographic image on Tooth # 12 (Performed by Chayito Farr DMD) Treatments:Type - CDT Code - Description T - (D7140) Ex traction, erupted tooth or exposed root (elevation and/or forceps removal) on Tooth # 12 (Performed by Chayito Farr DMD) Chart Notes:samreen (May 17 2019 2:04PM): S: CC: "I I am having a very bad toothache on the top left side. The tooth is changing color starting last week."HPI: last week. O: RMHx (-)per pt. has type 2 diabetes, depression and Schizophrenia. per pt. has decided to stop s [facility] for any further treatment and has stopped taking all medications as of last year. BP: 124/67. PA taken. A: Discussed with pt.. concerns of not taking medications for Diabetes type 2 and all other medications that are needed Offered pt. that we could help set up appt. to see primary care and pt. denied any help from us at this time. #12 decayed into the pulp. Advised pt. to have extracted. Discussed with pt. as we are unware of H1AC levels, referral to OS would be the best option. No signs of infection at this time. P: Placed referral to OS. Informed Pt about new pain management policy of the clinic regarding about narcotic,told pt to alternate Ibuprophen 600- 800mg and tylenol 500mg every 4 to 6 hrs for pain when neededAssisted By:AM.NV: new p/ladan.Chayito Farr DMD by samreen (05/17/2019 2:04 PM): Tooth Notes and Watches: Assessment & Plan Problems:Added: Teeth extraction (ICD-525.10) (ICD10- K08.499)Medications:CARVEDILOL 12.5 MG ORAL TABLETDOCUSATE SODIUM 100 MG ORAL CAPSULETRAZODONE HCL 50 MG ORAL TABLETADULT ASPIRIN REGIMEN 81 MG ORAL TABLET DELAYED RELEASEARISTADA 882 MG/3.2ML INTRAMUSCULAR PREFILLED SYRINGEABILIFY MAINTENA 400 MG INTRAMUSCULAR SUSPENSION RECONSTITUTED ERABILIFY 10 MG ORAL TABLETALCOHOL WIPES PADBLOOD GLUCOSE TEST IN VITRO STRIPLANCETSAllergies:AMOXICILLIN (Moderate)Orders:Oral Surgery Referral [CPT- 02769] Name Value Range Interpretation Code Description Data Xochitl rce(s) Supporting Document(s) Procedure Social History Code Duration Value Status Description Data Source(s ) Smoking 02/29/2020 12:00:00 AM EDT Unknown if ever smoked comp leted Unknown if ever smoked [facility] ([facility]) Vital Signs ID Date Data Source UNK Name Value Range Interpretation Code Description Data Source(s) Diastolic blood pressure 0 mm[Hg] Normal (applies to non-numeric results) 0 mm[Hg] [facility] ([facility]) Systolic blood pressure 0 mm[Hg] Normal (applies t o non-numeric results) 0 mm[Hg] [facility] ([facility]) Body mass index (BMI) [Ratio] 0.00 kg/m2 No rmal (applies to non-numeric results) 0.00 kg/m2 [facility] ([facility]) Body weight Measured 0.00 lbs Normal (applies to n on-numeric results) 0.00 lbs [facility] ([facility]) Body height 0.00 in Normal (applies to non-numeric resu lts) 0.00 in [facility] ([facility])
[2020-07-10] MEDS ORDERED: MECLIZINE 25 MG TABLET PO ONE (13:15)
--- NOTE | 2020-07-10 13:39 | REP ---
INDICATION: CVA - Nursing interventions must not delay CT. COMPARISON: None. TECHNIQUE: Helical scanning is acquired. 5 mm axial images were reformatted. Coronal MPR images were generated. FINDINGS: Bone window settings demonstrate an intact bony calvarium. There is no evidence of skull fracture or incidental bony calvarial lesion. The visualized paranasal sinuses appear clear. No intraorbital abnormality is seen. On soft tissue window setting images; the lateral, third, and fourth ventricles are normal in size and position. Locke-white differentiation pattern is normal above and below the tentorium. There are is no evidence of intracranial hemorrhage. No mass, edema, infarction, or midline shift is seen. No extra-axial fluid collection is appreciated. IMPRESSION: Negative noncontrast head CT. <Electronically signed by Se Shipley > 07/10/20 1151
--- NOTE | 2020-07-10 13:44 | REP ---
INDICATION: CVA. COMPARISON: Comparison chest x-ray December 28, 2019. TECHNIQUE: Portable upright AP chest radiograph. FINDINGS: Monitoring electrodes are present. The lungs are well inflated and clear. The pleural angles are sharp. Heart size is borderline. The aorta is tortuous. Pulmonary vasculature is not increased.. IMPRESSION: No active disease. <Electronically signed by Se Shipley > 07/10/20 2819
[2020-07-10 13:56] LABS: BASO % 0.3 % (0.0-1.0); EOS # 0.1 10^3/uL (0.0-0.5); EOS % 0.5 % (0.0-3.0); HEMOGLOBIN 13.5 g/dl (12.0-15.5); LYMPH # 1.3 10^3/uL (1.5-5.0); LYMPH % 14.3 % (24.0-44.0); MEAN CORPUSCULAR HEMOGLOBIN 28.8 pg (27.0-33.0); MEAN CORPUSCULAR HGB CONC 31.4 g/dl (32.0-36.5); MEAN CORPUSCULAR VOLUME 91.9 fl (80.0-96.0); MONO # 0.6 10^3/uL (0.0-0.8); MONO % 5.9 % (0.0-5.0); NEUTROPHILS # 7.3 10^3/uL (1.5-8.5); NEUTROPHILS % 78.5 % (36.0-66.0); PLATELET COUNT, AUTOMATED 202 10^3/uL (150-450); RED BLOOD COUNT 4.68 10^6/uL (4.00-5.40); WHITE BLOOD COUNT 9.3 10^3/uL (4.0-10.0)
[2020-07-10 14:11] LABS: INR 0.98; PROTHROMBIN TIME 13.2 SECONDS (12.5-14.3)
--- OUTSIDE RECORDS SUMMARY | 2020-07-10 14:11 | CCD ---
Author Author [facility] Organization [facility] Address Unknown Phone Unavailable Care Team Providers Care [employer] Client [employer] Consultant Name Role Phone Van, A Loni VAMP WETTER Unavailable Unavailable Van, A Loni VAMP WETTER Unavailable Unavailable Van, A Olni VAMP WETTER Unavailable Unavailable Van, A Loni VAMP WETTER Unavailable Unavailable Van, A Loni VAMP WETTER Unavailable Unavailable Van, A Loni VAMP WETTER Unavailable Unavailable Van, A Loni VAMP WETTER Unavailable Unavailable Van, A Loni VAMP WETTER Unavailable Unavailable Van, A Loni VAMP WETTER Unavailable Unavailable Van, A Loni VAMP WETTER Unavailable Unavailable Van, A Loni VAMP WETTER Unavailable Unavailable Van, A Loni VAMP WETTER Unavailable Unavailable Van, A Loni VAMP WETTER Unavailable Unavailable Van, A Loni VAMP WETTER Unavailable Unavailable Van, A Loni VAMP WETTER Unavailable Unavailable Van, A Loni VAMP WETTER Unavailable Unavailable Van, A Loni VAMP WETTER Unavailable Unavailable Van, A Loni VAMP WETTER Unavailable Unavailable Van, A Loni VAMP WETTER Unavailable Unavailable Van, A Loni VAMP WETTER Unavailable Unavailable Van, A Loni VAMP WETTER Unavailable Unavailable Van, A Loni VAMP WETTER Unavailable Unavailable Van, A Loni VAMP WETTER Unavailable Unavailable Van, A Loni VAMP WETTER Unavailable Unavailable Van, A Loni VAMP WETTER Unavailable Unavailable Van, A Loni VAMP WETTER Unavailable Unavailable Van, A Loni VAMP WETTER Unavailable Unavailable Delisa Pdero MD Unavailable Unavailable Delisa Pedro MD Unavailable [...] Unavailable [facility], JLAFLEUR Unavailable Unavailable Loni Araujo VAMP WETTER VAMP WETTER Unavailable Unavailable EGORHO, F VLAD FPMHNP Unavailable [...] is protected by Article 27-F of the [place] Public Health law. If you continue you may have access to information: Regarding HIV / AIDS; Provided by facilities licensed or operated by the [facility] Office of Mental Health; or Provided by the [facility] Office for People With Developmental Disabilities. If such information is present, then the following [facility] mandated warning applies: This information has been [...] law may result in a fine or penitentiary sentence or both. A general authorization for the release of medical or other information is NOT sufficient authorization for further disc losure. Allergies and Adverse Reactions Type Description Substance Reaction Status Data Source(s ) Propensity to adverse reactions to substance nkda 24 HR Bupropion Hydrochloride 150 MG Extended Release Oral Tablet Active [facility] ([facility]) Encounters Encounter Providers Location Date Indications Data Source(s ) Outpatient Attender: VLAD GARNETT [facility] 02/29/2020 10:00:00 AM EDT - 02/29/2020 10:00:00 AM EDT [facility] ([facility]) Attender: VLAD BATISTABERNARDINO 02/29/2020 12:00: 00 AM EDT [facility] ([facility]) Outpatient Attender: Delisa Pedro MD [email or web address].JAIME 12/22 12:00:00 AM EDT - 01/19/2020 02:23:26 PM EDT [facility] Outpatient Attender: MARIBELL REYNA 01/07/2020 02:57:00 P M EDT [facility] Outpatient Attender: MARIBELL REYNA 01/07/2020 02:54:00 P M EDT [facility] Outpatient Attender: MARIBELL REYNA 01/07/2020 02:53:00 P M EDT [facility]2020 01:20:01 P M EDT [facility] Outpatient Attender: MARIBELL REYNA 01/06/2020 01:18:00 P M EDT [facility] Outpatient Attender: MARIBELL REYNA 01/06/2020 01:17:01 P M EDT [facility] Outpatient Attender: Loni Van RIOSP FP 01/06/2020 11:1 6:03 AM EDT [facility] Outpatient Attender: MARIBELL Van VAMP WETTER FP 01/06/2020 10:51:00 A M EDT [facility] Outpatient Attender: MARIBELL Van VAMP WETTER FP 01/06/2020 10:50:00 A M EDT [facility] Outpatient Attender: MARIBELL RIOSP FP 01/05/2020 05:06:01 P M EDT [facility] Outpatient Attender: Loni Van RIOSP FP 01/05/2020 03:4 2:00 PM EDT [facility] Outpatient Attender: MARIBELL RIOSP FP 01/05/2020 11:50:00 A M EDT [facility] Outpatient Attender: MARIBELL RIOSP FP 01/03/2020 12:07:01 P M EDT [facility] Outpatient Attender: MARIBELL Araujo VAMP WETTER FP 12/03/2019 09:36:01 A M EDT [facility] Outpatient Attender: Loni Araujo VAMP WETTER FP 12/01/2019 03:4 4:00 PM EDT [facility] Outpatient Attender: MARIBELL RIOSP FP 11/03/2019 02:47:00 P M EDT [facility] Outpatient Attender: MARIBELL Araujo VAMP WETTER FP 09/17/2019 08:01:14 P M EDT [facility] Outpatient Attender: MARIBELL RIOSP FP 05/19/2019 09:01:01 P M [facility] Outpatient Attender: MARIBELL RIOSP FP 05/19/2019 08:40:00 A M [facility] Outpatient Attender: JONE MAR FP 05/17/2019 09:01:01 PM [facility] Outpatient Attender: JONE FREEDMAN FP 05/17/2019 03:04:01 PM [facility] Outpatient Attender: JONE FREEDMAN FP 05/17/2019 03:00:01 PM [facility] Outpatient Attender: JONE FREEDMAN FP 05/17/2019 02:59:00 PM [facility] Outpatient Attender: JONE FREEDMAN FP 05/17/2019 02:06:03 PM [facility] 02:05:01 PM [facility]/17/2019 01:10:01 PM [facility]/17/2019 01:08:01 PM [facility] Outpatient Attender: JONE [facility] 05/17/2019 01:06:00 PM [facility] Functional Status Medications Medication Brand Name Start Date Product Form Dose Route Admi nistrative Instructions Pharmacy Instructions Status Indications Reaction Description Data Source(s) 10 mg 02/02/2020 12:00:00 AM EDT tablet 30 TAKE ONE TABLET BY MOUTH EVERY DAY TAKE ONE TABLET BY MOUTH EVERY DAY SOLD: 02/03/2020 [facility] 400 mg 02/02/2020 12:00:00 AM EDT suspension,extended rel syring 1 INJECT 400MG INTRAMUSCULARLY ONCE EVERY FOUR WEEKS INJECT 400MG INTRAMUSCULARLY ONCE EVERY FOUR WEEKS SOLD: 02/03/2020 [facility] aripiprazole 10 MG Oral Tablet aripiprazole 02/01/2020 12:00:00 AM ED T 10 mg by mouth completed [id number] aripiprazole by mouth [id number] 0 02/01/2020 03/02/2020 once a day 30 10 mg tablet [id number] Nikko brown Egorho [id number] Nurse Practitioner [facility] ([facility] 10 mg 01/03/2020 12:00:00 AM EDT [...] type / Coverage type Policy ID Covered democrat ID Covered democrat's relationship to sarmiento Policy Sarmiento Plan Information [facility] [id number] SP [id number] [facility] [id number] SP [id number] MEDICARE [id number] SP [id number] MEDICARE COMPLETE [id number] SP [id number] MEDICARE [id number] SP [id number] [facility] MEDICARE [id number] Sunshine [id number] [facility] [employer] P [id number] S [id number] Medicaid S [id number] S [id number] [facility] [employer] P [id number] S [id number] [place] [id number] SP [id number] [facility] MCRO [id number] SP [id number] [facility] [employer] P [id number] S [id number] MEDICAID [id number] SP [id number] MEDICAID M [id number] S [id number] MEDICARE C [id number] S [id number] [facility] [id number] SP [id number] MEDICAID [id number] SP [id number] [facility] [employer] P [id number] S [id number] Medicaid S [id number] S [id number] SELF PAY ONLY [id number] SP [id number] [facility] [employer] P [id number] S [id number] Medicare S [id number] S [id number] A MEDICARE [id number] SP [id number] A Managed Care - Community Plan [facility] P [id number] S [id number] Medicare P [id number] S [id number] A Medicaid S [id number] Managed Care - Community Plan [facility] P [id number] S [id number] [facility] [id number] SP [id number] Managed Care - Community Plan [facility] P [id number] S [id number] Medicaid S [id number] S [id number] Managed Care BCBS O [id number] S [id number] [employer] [id number] SP [id number] [facility] BLUE [id number] SP [id number] Problems, Conditions, and Diagnoses Code Display Name Description Problem Type Effective Dates Data Source(s) F32.0 Major depressive disorder, single episod e, mild Major Depressive Disorder, Single episode, Mild Condition 02/29/2020 12:00:00 AM EDT [facility] ([facility]) 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 Other Specified Schizophrenia Spectrum and Other Psych otic Disorder Condition 02/29/2020 12:00:00 AM EDT [facility] ([facility]) 525.10 Teeth extraction Teeth extraction 05/17/2019 02 :04:23 PM EST [facility] I48.92 Unspecified atrial flutter Unspecified atrial flutter Diagnosis 01/19/2020 12:54:58 PM EDT [facility] Surgeries/Procedures Procedure Description Date Indications Data Source(s) OFFICE OUTPATIENT VISIT 15 MINUTES 02/28 12:00:00 AM EDT - 02/29/2020 12:00:00 AM EDT [facility] ([facility]) OFFICE OUTPATIENT VISIT 15 MINUTES 02/29/2020 12:00:00 AM EDT [facility] ([facility]) Results ID Date Data Source [id number] 01/06/2020 10:48:24 AM EDT [facility] Measurements & CalculationsHeight: 67 inches (5 [...] been admitted to the hospital? Yes - [facility] IMHHave you been to an emergency [...] assessed. She has an appointment with her Supervisor Paper Coating in 2 weeks. Has had issues in the past with atrial fibrillation. Currently asymptomatic.HPI performed by: Ventura Medellin MD, January 06, 2020 11:03 AMTransitions of Care Inbound Problem ReviewProblem List was reviewed and/or updated during this visit.Medication Reconciliation & ReviewMedication List was reviewed and/or updated during this visit, including review of any mtaz-acq-easafel medications, herbal therapies, and/or supplements.Allergy ReviewAllergy List [...] is? Very GoodAssessment & Plan Problems:Assessed:Schizophrenia (ICD-295.90) (JXI10-T69.9) Assessment: Instructions: With recent hospital admit.Doing much better now.Continue current plan and recheck as scheduled with Psychiatrist next week.Unspecified atrial fibrillation (HYU02-Z68.91) Assessment: Instructions: With recent flare of this while inpatient.Currently symptoms free.Keep appointment in 2 weeks with Supervisor Paper Coating.Patient Instructions/Care Plan: Schizophrenia: With recent hospital admit.Doing much better now.Continue current plan and recheck as scheduled with Psychiatrist next week.Unspecified atrial fibrillation: With recent flare of this while inpatient.Currently symptoms free.Keep appointment in 2 weeks with Supervisor Paper Coating. Plan developed in collaboration with patient and/or familyMedications:ABILIFY MA INTENA 400 MG INTRAMUSCULAR PREFILLED SYRINGEABILIFY [...] (Moderate)Orders:Adult - Ofc Vst, EST, Level III [CPT-57858] Name Value Range Interpretation Code Description Data Xochitl rce(s) Supporting Document(s) ID Date Data Source [id number] 05/17/2019 01:06:02 PM [facility] Current Problems: Teeth extraction (ICD- 525.10) (BOQ05-Z24.499)depression (ICD- 311) (WPN48-Y90.9)Bipolar disorder (ICD-296.80) (LCF60-K28.9)Schizophrenia (ICD- 295.90) (HYD45-F28.9)Unspecified atrial fibrillation (SVS90-O07.91)BMI 38.0-38.9 (ICD-V85.38) (DTS21-B49.38)Localized swelling, mass and lump, left lower limb (ICD-729.81) (JSL85-Q93.42)Cellulitis of lower limb (ICD-682.6) (WTT51-V19.119)Constipation (ICD-564.00) (VHS87-F69.00)upper respiratory infection (ICD-465.9) (BSQ59-G55.9)Vaccination (ICD-V05.9) (ICD10- Z23)Unspecified idiopathic peripheral neuropathy (ICD-356.9) (YUG91-L69.9)Dysthymic Disorder (ICD-300.4) (AES90-T01.1)Psychotic Disorder NOS (ICD-298.9) (XCH38-E17)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)Health Screening (ICD-V70.0) (SOB54-C90.9)PHARYNGITIS (ICD-462) (RDL70-K10.9)SHINGLES (ICD-053.9) (OBJ43-L95.9)SPECIAL SCREENING FOR MALIGNANT NEOPLASMS COLON (ICD- V76.51) (FWK65-S86.11)TONGUE DISORDER (ICD-529.9) (BSV01-D50.9)OBESITY (ICD- 278.00) (WFT77-P20.9)NONDEPENDENT TOBACCO USE DISORDER (ICD-305.1) (ICD10- Z72.0)OTHER DISORDERS OF BONE AND CARTILAGE OTHER (ICD-733.99)OTHER SCREENING BREAST EXAMINATION (ICD-V76.19) (NCE64-N27.39)SCREENING FOR MALIGNANT NEOPLASM OF THE CERVIX (ICD-V76.2) (XED78-S30.4)HYPERLIPIDEMIA (ICD-272.4) (ICD10- E78.5)PSORIASIS, FEET (ICD-696.1) (PEG69-E42.9)ECZEMA, ATOPIC (ICD-691.8) (JVE65-B08.9)UNSPECIFIED ADJUSTMENT REACTION (ICD-309.9) (OLT57-V12.20)VITAMIN D DEFICIENCY (ICD-268.9) (URJ01-T15.9)THYROID NODULE (ICD-241.0) (ICD10- E04.1)CALLUSES, FEET, BILATERAL (ICD-700) (WTP25-U95)DIABETES, TYPE 2 (ICD- 250.00) (HTZ53-T25.9)Current Medications: CARVEDILOL 12.5 MG ORAL TABLET (CARVEDILOL) [...] per pt. has decided to stop s eeing medical for any further treatment and has [...] hrs for pain when neededAssisted By:AM.NV: new jesus/Chayito Choi DMD by samreen (05/17/2019 2:04 PM): Tooth [...] IN VITRO STRIPLANCETSAllergies:AMOXICILLIN (Moderate)Orders:Oral Surgery Referral [CPT- 83999] Name Value Range Interpretation Code Description Data Xochitl rce(s) Supporting Document(s) Procedure Social History Code Duration Value Status Description Data Source(s ) Smoking 02/29/2020 12:00:00 AM EDT Unknown if ever smoked comp leted Unknown if ever smoked [facility] ([facility]) Vital Signs ID Date Data Source UNK Name Value Range Interpretation Code Description Data Source(s) Diastolic blood pressure 0 mm[Hg] Normal (applies to non-numeric results) 0 mm[Hg] [facility] ([facility]) Systolic blood pressure 0 mm[Hg] Normal (applies t o non-numeric results) 0 mm[Hg] [facility] ([facility]) Body mass index (BMI) [Ratio] 0.00 kg/m2 No rmal (applies to non-numeric results) 0.00 kg/m2 [facility] ([facility]) Body weight Measured 0.00 lbs Normal (applies to n on-numeric results) 0.00 lbs [facility] ([facility]) Body height 0.00 in Normal (applies to non-numeric resu lts) 0.00 in [facility] ([facility])
[2020-07-10 14:12] LABS: PARTIAL THROMBOPLASTIN TIME 26.3 SECONDS (24.2-38.5)
[2020-07-10 14:34] LABS: ALBUMIN 3.4 GM/DL (3.2-5.2); ALT/SGPT 21 U/L (12-78); BILIRUBIN,DIRECT 0.1 MG/DL (0.0-0.2); BILIRUBIN,TOTAL 0.6 MG/DL (0.2-1.0); BLOOD UREA NITROGEN 17 MG/DL (7-18); CALCIUM LEVEL 8.9 MG/DL (8.8-10.2); CARBON DIOXIDE LEVEL 30 MEQ/L (21-32); CHLORIDE LEVEL 104 MEQ/L (98-107); CK-MB VALUE MASS < 1.0 NG/ML (<3.6); CPK CREATINE PHOSPHOKINASE 64 U/L (26-192); CREATININE FOR GFR 0.78 MG/DL (0.55-1.30); FREE T4 0.81 NG/DL (0.76-1.46); GLOMERULAR FILTRATION RATE > 60.0 (>45); GLUCOSE, FASTING 158 MG/DL (70-100); MB/CK RELATIVE INDEX 1.56 (< OR =4); POTASSIUM SERUM 4.8 MEQ/L (3.5-5.1); SODIUM LEVEL 139 MEQ/L (136-145); THYROID STIMULATING HORMONE 0.512 uIU/ML (0.358-3.740); TOTAL PROTEIN 7.2 GM/DL (6.4-8.2); TROPONIN I < 0.02 NG/ML (< 0.10)
[2020-07-10] MEDS ORDERED: NS 500 ML IV ONE (14:45)
--- OUTSIDE RECORDS SUMMARY | 2020-07-10 17:35 | CCD ---
Author Author [facility] Organization [facility] Address Unknown Phone Unavailable Care Team Providers Care Covering Machine Operator Name Role Phone Van, A Loni HEEL BUFFER Unavailable Unavailable Van, A Loni HEEL BUFFER Unavailable Unavailable Van, A Loni HEEL BUFFER Unavailable Unavailable Van, A Loni HEEL BUFFER Unavailable Unavailable Van, A Loni HEEL BUFFER Unavailable Unavailable Van, A Loni HEEL BUFFER Unavailable Unavailable Van, A Loni HEEL BUFFER Unavailable Unavailable Van, A Loni HEEL BUFFER Unavailable Unavailable Van, A Loni HEEL BUFFER Unavailable Unavailable Van, A Loni HEEL BUFFER Unavailable Unavailable Van, A Loni HEEL BUFFER Unavailable Unavailable Van, A Loni HEEL BUFFER Unavailable Unavailable Van, A Loni HEEL BUFFER Unavailable Unavailable Van, A Loni HEEL BUFFER Unavailable Unavailable Van, A Loni HEEL BUFFER Unavailable Unavailable Van, A Loni HEEL BUFFER Unavailable Unavailable Van, A Loni HEEL BUFFER Unavailable Unavailable Van, A Loni HEEL BUFFER Unavailable Unavailable Van, A Loni HEEL BUFFER Unavailable Unavailable Van, A Loni HEEL BUFFER Unavailable Unavailable Van, A Loni HEEL BUFFER Unavailable Unavailable Van, A Loni HEEL BUFFER Unavailable Unavailable Van, A Loni HEEL BUFFER Unavailable Unavailable Van, A Loni HEEL BUFFER Unavailable Unavailable Van, A Loni HEEL BUFFER Unavailable Unavailable Van, A Loni HEEL BUFFER Unavailable Unavailable Van, A Loni HEEL BUFFER Unavailable Unavailable Delisa Pedro MD Unavailable Unavailable [...] Unavailable [facility], JLAFLEUR Unavailable Unavailable Loni Araujo HEEL BUFFER HEEL BUFFER Unavailable Unavailable EGORHO, F VLAD FPMHNP Unavailable [...] is protected by Article 27-F of the [place] State Public Health law. If you continue you may have access to information: Regarding HIV / AIDS; Provided by facilities licensed or operated by the [facility] Office of Mental Health; or Provided by the [facility] Office for People With Developmental Disabilities. If such information is present, then the following [facility] mandated warning applies: This information has [...] law may result in a fine or nursing home sentence or both. A general authorization for the release of medical or other information is NOT sufficient authorization for further disc losure. Allergies and Adverse Reactions Type Description Substance Reaction Status Data Source(s ) Propensity to adverse reactions to substance nkda 24 HR Bupropion Hydrochloride 150 MG Extended Release Oral Tablet Active [facility] ([facility]) Encounters Encounter Providers Location Date Indications Data Source(s ) Outpatient Attender: VLAD GARNETT [facility] 02/29/2020 10:00:00 AM EDT - 02/29/2020 10:00:00 AM EDT [facility] ([facility]) Attender: VLAD BATISTABERNARDINO 02/29/2020 12:00: 00 AM EDT [facility] ([facility]) Outpatient Attender: Delisa Pedro MD [email or web address] 12/22 12:00:00 AM EDT - 01/19/2020 02:23:26 PM EDT [facility] Outpatient Attender: MARIBELL REYNA 01/07/2020 02:57:00 P M EDT [facility] Outpatient Attender: MARIBELL REYNA 01/07/2020 02:54:00 P M EDT [facility] Outpatient Attender: MARIBELL REYNA 01/07/2020 02:53:00 P M EDT [facility] 01/06/2020 01:20:01 P M EDT [facility] Outpatient Attender: MARIBELL REYNA 01/06/2020 01:18:00 P M EDT [facility] Outpatient Attender: MARIBELL REYNA 01/06/2020 01:17:01 P M EDT [facility] Outpatient Attender: Loni Van RIOSP FP 01/06/2020 11:1 6:03 AM EDT [facility] Outpatient Attender: MARIBELL Van HEEL BUFFER FP 01/06/2020 10:51:00 A M EDT [facility] Outpatient Attender: MARIBELL Van HEEL BUFFER FP 01/06/2020 10:50:00 A M EDT [facility] Outpatient Attender: MARIBELL RIOSP FP 01/05/2020 05:06:01 P M EDT [facility] Outpatient Attender: Loni Van RIOSP FP 01/05/2020 03:4 2:00 PM EDT [facility] Outpatient Attender: MARIBELL RIOSP FP 01/05/2020 11:50:00 A M EDT [facility] Outpatient Attender: MARIBELL RIOSP FP 01/03/2020 12:07:01 P M EDT [facility] Outpatient Attender: MARIBELL Araujo HEEL BUFFER FP 12/03/2019 09:36:01 A M EDT [facility] Outpatient Attender: Loni Araujo HEEL BUFFER FP 12/01/2019 03:4 4:00 PM EDT [facility] Outpatient Attender: MARIBELL RIOSP FP 11/03/2019 02:47:00 P M EDT [facility] Outpatient Attender: MARIBELL Araujo HEEL BUFFER FP 09/17/2019 08:01:14 P M EDT [facility] Outpatient Attender: MARIBELL RIOSP FP 05/19/2019 09:01:01 P M [facility] Outpatient Attender: MARIBELL RIOSP FP 05/19/2019 08:40:00 A M [facility] Outpatient Attender: JONE MAR FP 05/17/2019 09:01:01 PM [facility] Outpatient Attender: JONE FREEDMAN FP 05/17/2019 03:04:01 PM [facility] Outpatient Attender: JONE FREEDMAN FP 05/17/2019 03:00:01 PM [facility] Outpatient Attender: JONE FREEDMAN FP 05/17/2019 02:59:00 PM [facility] Outpatient Attender: JONE FREEDMAN FP 05/17/2019 02:06:03 PM [facility] 05/17/2019 02:05:01 PM [facility] Out[facility] 05/17/2019 01:10:01 PM [facility] Out[facility] 05/17/2019 01:08:01 PM [facility] Outpatient Attender: JONE [facility] 05/17/2019 01:06:00 PM [facility] Functional Status Medications Medication Brand Name Start Date Product Form Dose Route Admi nistrative Instructions Pharmacy Instructions Status Indications Reaction Description Data Source(s) 10 mg 02/02/2020 12:00:00 AM EDT tablet 30 TAKE ONE TABLET BY MOUTH EVERY DAY TAKE ONE TABLET BY MOUTH EVERY DAY SOLD: 02/03/2020 [facility] 400 mg 02/02/2020 12:00:00 AM EDT suspension,extended rel syring 1 INJECT 400MG INTRAMUSCULARLY ONCE EVERY FOUR WEEKS INJECT 400MG INTRAMUSCULARLY ONCE EVERY FOUR WEEKS SOLD: 02/03/2020 [facility] aripiprazole 10 MG Oral Tablet aripiprazole 02/01/2020 12:00:00 AM ED T 10 mg by mouth completed [id number] aripiprazole by mouth [id number] 0 02/01/2020 03/02/2020 once a day 30 10 mg tablet [id number] Nikko brown Egorho [id number] Nurse Practitioner [facility] ([facility]) 10 mg 01/03/2020 12:00:00 AM EDT tablet [...] type / Coverage type Policy ID Covered libertarian ID Covered libertarian's relationship to sarmiento Policy Sarmiento Plan Information [facility] COMMUNITY [facility] [id number] SP [id number] [facility] [id number] SP [id number] [facility] [id number] SP [id number] MEDICARE [id number] SP [id number] MEDICARE COMPLETE [id number] SP [id number] MEDICARE [id number] SP [id number] [facility] MEDICARE [id number] Sunshine [id number] [facility] Secure Horizons P [id number] S [id number] Medicaid S [id number] S [id number] [facility] P [id number] S [id number] [id number] SP [id number] [facility] MCRO [id number] SP [id number] [facility] P [id number] S [id number] MEDICAID [id number] SP [id number] MEDICAID M [id number] S [id number] MEDICARE C [id number] S [id number] [facility] [id number] SP [id number] MEDICAID [id number] SP [id number] [facility] P [id number] S [id number] Medicaid S [id number] S [id number] SELF PAY ONLY [id number] SP [id number] [facility] P [id number] S [id number] Medicare S [id number] S [id number] A MEDICARE [id number] SP [id number] A Managed Care - Community Plan [facility] P [id number] S [id number] Medicare P [id number] S [id number] A Medicaid S [id number] S [id number] Managed Care - Community Plan [facility] P [id number] S [id number] [facility] COMMUNITY PL[facility] [id number] SP [id number] Managed Care - Community Plan [facility] P [id number] S [id number] Medicaid S [id number] S [id number] Managed Care BCBS O [id number] S [id number] [employer] PLAN [id number] SP [id number] [facility] BLUE [id number] SP [id number] Problems, Conditions, and Diagnoses Code Display Name Description Problem Type Effective Dates Data Source(s) F32.0 Major depressive disorder, single episod e, mild Major Depressive Disorder, Single episode, Mild Condition 02/29/2020 12:00:00 AM EDT [facility] ([facility]) 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 Other Specified Schizophrenia Spectrum and Other Psych otic Disorder Condition 02/29/2020 12:00:00 AM EDT [facility] ([facility]) 525.10 Teeth extraction Teeth extraction 05/17/2019 02 :04:23 PM EST [facility] I48.92 Unspecified atrial flutter Unspecified atrial flutter Diagnosis 01/19/2020 12:54:58 PM EDT [facility] Surgeries/Procedures Procedure Description Date Indications Data Source(s) OFFICE OUTPATIENT VISIT 15 MINUTES 02/28 12:00:00 AM EDT - 02/29/2020 12:00:00 AM EDT [facility] ([facility]) OFFICE OUTPATIENT VISIT 15 MINUTES 02/29/2020 12:00:00 AM EDT [facility] ([facility]) Results ID Date Data Source [id number] 01/06/2020 10:48:24 AM EDT [facility] Measurements & CalculationsHeight: 67 inches (5 [...] been admitted to the hospital? [facility] - [facility] IMHHave you been to an emergency [...] assessed. She has an appointment with her Sales Marketing Director in 2 weeks. Has had issues in the past with atrial fibrillation. Currently asymptomatic.HPI performed by: Ventura Medellin MD, January 06, 2020 11:03 AMTransitions of Care Inbound Problem ReviewProblem List was reviewed and/or updated during this visit.Medication Reconciliation & ReviewMedication List was reviewed and/or updated during this visit, including review of any [id number] medications, herbal therapies, and/or supplements.Allergy ReviewAllergy List [...] is? Very GoodAssessment & Plan Problems:Assessed:Schizophrenia (ICD-295.90) (VZV68-I78.9) Assessment: Instructions: With recent hospital admit.Doing much better now.Continue current plan and recheck as scheduled with Psychiatrist next week.Unspecified atrial fibrillation (FTY51-A78.91) Assessment: Instructions: With recent flare of this while inpatient.Currently symptoms free.Keep appointment in 2 weeks with Sales Marketing Director.Patient Instructions/Care Plan: Schizophrenia: With recent hospital admit.Doing much better now.Continue current plan and recheck as scheduled with Psychiatrist next week.Unspecified atrial fibrillation: With recent flare of this while inpatient.Currently symptoms free.Keep appointment in 2 weeks with Sales Marketing Director. Plan developed in collaboration with patient and/or [...] (Moderate)Orders:Adult - Ofc Vst, EST, Level III [CPT-32633] Name Value Range Interpretation Code Description Data Xochitl rce(s) Supporting Document(s) ID Date Data Source [id number] 05/17/2019 01:06:02 PM EST [facility] Current Problems: Teeth extraction (ICD- 525.10) (CUA41-M63.499)depression (ICD- 311) (HLT24-V16.9)Bipolar disorder (ICD-296.80) (TJJ88-Z84.9)Schizophrenia (ICD- 295.90) (RTY25-J51.9)Unspecified atrial fibrillation (SWQ11-L02.91)BMI 38.0-38.9 (ICD-V85.38) (ACQ75-X23.38)Localized swelling, mass and lump, left lower limb (ICD-729.81) (YRT66-H95.42)Cellulitis of lower limb (ICD-682.6) (BTJ93-D42.119)Constipation (ICD-564.00) (ZWV84-C46.00)upper respiratory infection (ICD-465.9) (WIX17-L87.9)Vaccination (ICD-V05.9) (ICD10- Z23)Unspecified idiopathic peripheral neuropathy (ICD-356.9) (QPH93-F46.9)Dysthymic Disorder (ICD-300.4) (VSA99-G61.1)Psychotic Disorder NOS (ICD-298.9) (TJP65-T17)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) (QND90-T19.1)Health Screening (ICD-V70.0) (ZAL37-A31.9)PHARYNGITIS (ICD-462) (AMG84-R70.9)SHINGLES (ICD-053.9) (SDU27-S05.9)SPECIAL SCREENING FOR MALIGNANT NEOPLASMS COLON (ICD- V76.51) (AEN43-I65.11)TONGUE DISORDER (ICD-529.9) (MYC52-X82.9)OBESITY (ICD- 278.00) (QJX14-O96.9)NONDEPENDENT TOBACCO USE DISORDER (ICD-305.1) (ICD10- Z72.0)OTHER DISORDERS OF BONE AND CARTILAGE OTHER (ICD-733.99)OTHER SCREENING BREAST EXAMINATION (ICD-V76.19) (RZG03-G72.39)SCREENING FOR MALIGNANT NEOPLASM OF THE CERVIX (ICD-V76.2) (HBR97-K27.4)HYPERLIPIDEMIA (ICD-272.4) (ICD10- E78.5)PSORIASIS, FEET (ICD-696.1) (QEF24-M71.9)ECZEMA, ATOPIC (ICD-691.8) (ATB21-V87.9)UNSPECIFIED ADJUSTMENT REACTION (ICD-309.9) (QPK25-S64.20)VITAMIN D DEFICIENCY (ICD-268.9) (VXL39-A02.9)THYROID NODULE (ICD-241.0) (ICD10- E04.1)CALLUSES, FEET, BILATERAL (ICD-700) (KMA14-W44)DIABETES, TYPE 2 (ICD- 250.00) (JJR29-J43.9)Current Medications: CARVEDILOL 12.5 MG ORAL TABLET (CARVEDILOL) [...] image on Tooth # 12 (Performed by Chayiot Farr DMD) Treatments:Type - CDT Code - [...] hrs for pain when neededAssisted By:AM.NV: new p/e.Chayito Farr DMD by samreen (05/17/2019 2:04 PM): [...] IN VITRO STRIPLANCETSAllergies:AMOXICILLIN (Moderate)Orders:Oral Surgery Referral [CPT- 96517] Name Value Range Interpretation Code Description Data Xochitl rce(s) Supporting Document(s) Procedure Social History Code Duration Value Status Description Data Source(s ) Smoking 02/29/2020 12:00:00 AM EDT Unknown if ever smoked comp leted Unknown if ever smoked [facility] ([facility]) Vital Signs ID Date Data Source UNK Name Value Range Interpretation Code Description Data Source(s) Diastolic blood pressure 0 mm[Hg] Normal (applies to non-numeric results) 0 mm[Hg] [facility] ([facility]) Systolic blood pressure 0 mm[Hg] Normal (applies t o non-numeric results) 0 mm[Hg] [facility] ([facility]) Body mass index (BMI) [Ratio] 0.00 kg/m2 No rmal (applies to non-numeric results) 0.00 kg/m2 [facility] ([facility]) Body weight Measured 0.00 lbs Normal (applies to n on-numeric results) 0.00 lbs [facility] ([facility]) Body height 0.00 in Normal (applies to non-numeric resu lts) 0.00 in [facility] ([facility])
[2020-07-10 17:52] LABS: RSV AMPLIFICATION NEGATIVE (NEGATIVE)
--- NOTE | 2020-07-10 17:52 | HPEPDOC ---
General Date of Admission Jul 10, 2020 Date of Service: Jul 10, 2020 Chief Complaint The patient is a 65-year-old female admitted with a reason for visit of ataxia Source: Patient History of Present Illness Ms. Man is a 65 year old female with paroxysmal atrial flutter, medical noncompliance, and schizophrenia who is here for ataxia. She is supposed to be on Eliquis, but has not taken Eliquis in months. She has not been on her scheduled medications for several months as she made excuses to not see her physicians. She did not want to take her medications as some of them made her anxious. She remembers that one gave her diarrhea, but does not remember which one. Yesterday morning and afternoon, she was feeling well. Then yesterday evening, she stood up and felt dizzy. She felt that she had poor balance and had ringing in the left ear. She took acetaminophen thinking that it would help, but it did not help. This morning she continued to have ataxia. At one point she felt nauseous and try to vomit, but was unable to. She came to the ED for further evaluation. While in the ED, CT head was unremarkable. Electrolytes and renal function are within normal. Liver function within normal. No leukocytosis or anemia. Orthostatic vitals negative. The ED gave fluid and meclizine. She felt better but continued to have ataxia. They called for admission. I spoke with her, she says she's had night chills a few days ago, but now resolved. She reports dizziness like spinning. Denies chest pain, dyspnea, cough, abdominal pain, or rashes. CN 3-12 grossly intact and no focal weakness. She was able to do finger to nose, but she has circular tremors when pursuing my finger. She'll be admitted for rule out stroke. Home Medications No Active Prescriptions or Reported Meds Allergies Coded Allergies: levofloxacin (Verified Adverse Reaction, Unknown, DIARRHEA, 12/28/19) Past Medical History Medical History 1. Paroxysmal atrial flutter noncompliant with Eliquis 2. Abdominal hernia 3. Osteoarthritis 4. Chronic back pain 5. Extensive psychiatric history of schizophrenia, depression, and anxiety Surgical History 1. Tubal ligation Family History Father: Stroke Mother: Denies medical history mother Social History * Smoker: former Smoker Alcohol: sober Drugs: denies A-FIB/CHADSVASC A-FIB History Current/History of A-Fib/PAF?: Yes Current PO Anticoag Therapy: No Age/Risk Factor Scoring CHADSVASC: CHADSVASC Response (Comments) Value Age Risk Factor Age 65-74 years old 1 Gender Risk Factor Female 1 Hx of CHF No 0 Hx of HTN No 0 Hx of Stroke/TIA/or VTE No 0 Hx of Diabetes No 0 Hx of Vascular Disease No 0 Total 2 Treatment Treatment ordered: Holding Other (Unknown if CVA, risk of hemorrhagic conversion if CVA present) Review of Systems Constitutional: Reports: Chills, Night Sweats; Denies: Fever Eyes: Denies: Vision change ENT: Reports: Other Symptoms (tinnitis in left ear); Denies: Sore Throat Skin: Denies: Rash Pulmonary: Denies: Dyspnea, Cough Cardiovascular: Denies: Chest Pain, Palpitations Gastrointestinal: Reports: Nausea (had an episode of nausea this morning), Diarrhea; Denies: Abdominal Pain Genitourinary: Denies: Dysuria Hematologic: Denies: Bruising Neurological: Reports: Other Symptoms (Dizziness like room is spinning) Psych: Reports: Anxiety, Depression Physical Examination General Exam: Positive: Alert, Cooperative Eye Exam: Positive: EOMI, Other Eye Symptoms; Negative: Sclera icteric ENT Exam: Positive: Tongue Midline Chest Exam: Positive: Clear to auscultation; Negative: Rales, Rhonchi, Wheezing Heart Exam: Positive: Bradycardic, Regular Rhythm Abdomen Exam: Positive: Normal bowel sounds, Other (Obese); Negative: Tenderness Extremity Exam: Positive: Edema (mild bilateral ) Neuro Exam: Positive: Normal Speech, Cranial Nerves 3-12 NL, Other (Able to touch finger to nose, but has circular tremors) Psych Exam: Positive: Anxiety, Other (Affect looks a little flat) Vital Signs Vital Signs Date Time Temp Pulse Resp B/P (MAP) Pulse Ox O2 Delivery O2 Flow Rate FiO2 07/10/20 16:24 Room Air 07/10/20 16:04 57 18 95 07/10/20 15:00 107/63 (78) 07/10/20 12:35 97.9 Laboratory Data Labs 24H Laboratory Tests 2 07/10/20 13:15: Immature Granulocyte % (Auto) 0.5, Neutrophils (%) (Auto) 78.5H, Lymphocytes (%) (Auto) 14.3L, Monocytes (%) (Auto) 5.9H, Eosinophils (%) (Auto) 0.5, Basophils (%) (Auto) 0.3, Neutrophils # (Auto) 7.3, Lymphocytes # (Auto) 1.3L, Monocytes # (Auto) 0.6, Eosinophils # (Auto) 0.1, Basophils # (Auto) 0.0, Nucleated Red Blood Cells % (auto) 0.0, Prothrombin Time 13.2, Prothromb Time International Ratio 0.98, Activated Partial Thromboplast Time 26.3, Anion Gap 5L, Glomerular Filtration Rate > 60.0, Calcium Level 8.9, Total Bilirubin 0.6, Direct Bilirubin 0.1, Aspartate Amino Transf (AST/SGOT) 20, Alanine Aminotransferase (ALT/SGPT) 21, Alkaline Phosphatase 65, Total Creatine Kinase 64, Creatine Kinase MB < 1.0, Creatine Kinase MB Relative Index 1.56, Troponin I < 0.02, Total Protein 7.2, Albumin 3.4, Albumin/Globulin Ratio 0.9L, Thyroid Stimulating Hormone (TSH) 0.512, Free Thyroxine 0.81 07/10/20 16:36: CBC/BMP Laboratory Tests 07/10/20 13:15 Assessment/Plan Ms. Man is a 65 year old female with paroxysmal atrial flutter, medical noncompliance, and schizophrenia who is here for ataxia. She has been noncompliant with Eliquis for atrial flutter. There is concern that she may have a stroke. MRI has been ordered, pending results. If she does have a stroke, she would need the full stroke workup. Otherwise we'll order physical therapy to work with her ataxia. We'll order a vitamin B12 level and HbA1c Plan / VTE VTE Prophylaxis Ordered?: Yes Plan Plan 1. Ataxia Has risk factors for stroke Pending MRI results. She does have a stroke she'll need full stroke workup Ordered physical therapy for ataxia Ordered vitamin B12 and HbA1c 2. Paroxysmal atrial flutter Noncompliant with metoprolol and Eliquis -Will hold off on metoprolol due to borderline bradycardia and low blood p ressure -Will hold off on Eliquis until we know if she has a CVA due to risk of hemorrhagic conversion. If no CVA, she will need to be back on Eliquis. If there is CVA, will need to have discussion with neurology on when to restart Eliquis 3. Sinus bradycardia / borderline first degree heart block -She would not be able to tolerate metoprolol -Monitor on tele -Echocardiogram 4. Psychosis -She is supposed to be on Abilify, but she does not appear to have psychosis at this time -She would need outpatient follow up with psych to manage psych medication 5. DVT ppx -SCD and TEDs. Will need to know if there is CVA or not before starting anticoagulation HILL ALBRIGHT DO Jul 10, 2020 17:52
[2020-07-10] MEDS ORDERED: ONDANSETRON 4MG/2ML VIAL IV PRN (18:00)
[2020-07-10] MEDS ORDERED: ACETAMINOPHEN TAB 650MG DOSE (2X325MG) PO PRN (18:30)
--- NOTE | 2020-07-10 20:00 | ECGEPIP ---
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
--- NOTE | 2020-07-10 21:24 | REPVR ---
PROCEDURE INFORMATION: Exam: MR Head Without Contrast Exam date and time: 07/10/2020 8:03 PM Age: 65 years old Clinical indication: Altered mental status/memory loss and dizziness; Patient HX: Confusion, dizziness, AMS; Additional info: CVA TECHNIQUE: Imaging protocol: MR of the head without contrast. COMPARISON: CT Head without contrast 07/10/2020 1:19 PM FINDINGS: Brain: Normal. No acute infarct. No hemorrhage. No significant white matter disease. No edema. Cerebral ventricles: Normal. No ventriculomegaly. Bones/joints: Unremarkable. Paranasal sinuses: Normal as visualized. No acute sinusitis. Mastoid air cells: Normal as visualized. No mastoid effusion. Orbital cavity: Unremarkable. Soft tissues: Unremarkable. IMPRESSION: No acute findings. Electronically signed by: Jacques Nielson On 07/10/2020 21:23:45 PM
--- NOTE | 2020-07-10 21:27 | REPVR ---
PROCEDURE INFORMATION: Exam: MR Angiogram Head Without Contrast, Arteries Exam date and time: 07/10/2020 8:03 PM Age: 65 years old Clinical indication: Pain; Headache; Patient HX: Confusion, dizziness, AMS; Additional info: CVA TECHNIQUE: Imaging protocol: MR angiogram head without contrast. Exam focused on the arteries. 3D rendering (Not supervised by radiologist): MIP and/or 3D reconstructed images were created by the technologist. COMPARISON: CT Head without contrast 07/10/2020 1:19 PM FINDINGS: ANTERIOR CIRCULATION: Right internal carotid artery: Intracranial segment is patent with no significant stenosis. No aneurysm. Right middle cerebral artery: No occlusion or significant stenosis. No aneurysm. Right anterior cerebral artery: No occlusion or significant stenosis. No aneurysm. Left internal carotid artery: Intracranial segment is patent with no significant stenosis. No aneurysm. Left middle cerebral artery: No occlusion or significant stenosis. No aneurysm. Left anterior cerebral artery: Absent A1 segment on the left. A2 on the left segment fills via collateral flow from the right. POSTERIOR CIRCULATION: Right vertebral artery: No occlusion or significant stenosis. No aneurysm. Left vertebral artery: No occlusion or significant stenosis. No aneurysm. Basilar artery: No occlusion or significant stenosis. No aneurysm. Right posterior cerebral artery: Hypoplastic P1 segment on the right. Persistent origin of the right posterior cerebral artery. Left posterior cerebral artery: No occlusion or significant stenosis. No aneurysm. IMPRESSION: No acute findings. Electronically signed by: Jacques Nielson On 07/10/2020 21:27:27 PM
[2020-07-10 21:50] VITALS: BP 125/65
[2020-07-11 06:00] VITALS: BP 110/61
[2020-07-11 07:58] LABS: HEMATOCRIT 42.5 % (36.0-47.0); HEMOGLOBIN 13.4 g/dl (12.0-15.5); MEAN CORPUSCULAR HEMOGLOBIN 29.1 pg (27.0-33.0); MEAN CORPUSCULAR HGB CONC 31.5 g/dl (32.0-36.5); MEAN CORPUSCULAR VOLUME 92.2 fl (80.0-96.0); PLATELET COUNT, AUTOMATED 186 10^3/uL (150-450); RED BLOOD COUNT 4.61 10^6/uL (4.00-5.40); WHITE BLOOD COUNT 10.5 10^3/uL (4.0-10.0)
[2020-07-11 08:20] LABS: BLOOD UREA NITROGEN 14 MG/DL (7-18); CALCIUM LEVEL 8.5 MG/DL (8.8-10.2); CARBON DIOXIDE LEVEL 30 MEQ/L (21-32); CHLORIDE LEVEL 103 MEQ/L (98-107); CREATININE FOR GFR 0.72 MG/DL (0.55-1.30); GLOMERULAR FILTRATION RATE > 60.0 (>45); GLUCOSE, FASTING 137 MG/DL (70-100); POTASSIUM SERUM 4.2 MEQ/L (3.5-5.1); SODIUM LEVEL 140 MEQ/L (136-145)
[2020-07-11 08:23] LABS: HEMOGLOBIN A1c 6.9 %
[2020-07-11 09:30] VITALS: BP_SYST 124; BP_SYST 128; BP_SYST 136; BP_DIAS 66; BP_DIAS 67; BP_DIAS 77
--- NOTE | 2020-07-11 10:24 | IPNPDOC ---
Date Seen The patient was seen on 07/11/20. Progress Note SUBJECTIVE: Patient was seen and examined at the bedside chart it's been reviewed. She says that she feels better and back to her baseline. MRI of the brain, MRA of the brain have no acute findings. Orthostatics were negative. She denies any dizziness, lightheadedness OBJECTIVE PHYSICAL EXAMINATION: VITAL SIGNS: Please see below. GENERAL: Awake, alert, oriented 3, answering questions appropriately. No respiratory distress HEENT: No JVD, no thyromegaly, no cervical lymphadenopathy. Moist mucous membranes CARDIOVASCULAR: S1, S2, irregularly irregular, not tachycardic. No carotid bruit RESPIRATORY: Clear to auscultation. Wheezing or rales ABDOMINAL: Positive bowel sounds, soft, nontender, nondistended EXTREMITIES: No cyanosis or clubbing NEURO: . Her motor function is 5 / 54 extremities. . No sensory disturbance Mild dysmetria on finger to nose testing with action tremors. No pronator drift Negative Babinski bilaterally LABORATORY DATA, IMAGING STUDIES, MICROBIOLOGY: Please see below. Portable upright AP chest radiograph. FINDINGS: Monitoring electrodes are present. The lungs are well inflated and clear. The pleural angles are sharp. Heart size is borderline. The aorta is tortuous. Pulmonary vasculature is not increased.. IMPRESSION: No active disease. <Electronically signed by Se Shipley > 07/10/20 1340 Exam: MR Head Without Contrast Exam date and time: 07/10/2020 8:03 PM Age: 65 years old Clinical indication: Altered mental status/memory loss and dizziness; Patient HX: Confusion, dizziness, AMS; Additional info: CVA TECHNIQUE: Imaging protocol: MR of the head without contrast. COMPARISON: CT Head without contrast 07/10/2020 1:19 PM FINDINGS: Brain: Normal. No acute infarct. No hemorrhage. No significant white matter disease. No edema. Cerebral ventricles: Normal. No ventriculomegaly. Bones/joints: Unremarkable. Paranasal sinuses: Normal as visualized. No acute sinusitis. Mastoid air cells: Normal as visualized. No mastoid effusion. Orbital cavity: Unremarkable. Soft tissues: Unremarkable. IMPRESSION: No acute findings. Electronically signed by: Jacques Nielson On 07/10/2020 21:23:45 PM Exam: MR Angiogram Head Without Contrast, Arteries Exam date and time: 07/10/2020 8:03 PM Age: 65 years old Clinical indication: Pain; Headache; Patient HX: Confusion, dizziness, AMS; Additional info: CVA TECHNIQUE: Imaging protocol: MR angiogram head without contrast. Exam focused on the arteries. 3D rendering (Not supervised by radiologist): MIP and/or 3D reconstructed images were created by the technologist. COMPARISON: CT Head without contrast 07/10/2020 1:19 PM FINDINGS: ANTERIOR CIRCULATION: Right internal carotid artery: Intracranial segment is patent with no significant stenosis. No aneurysm. Right middle cerebral artery: No occlusion or significant stenosis. No aneurysm. Right anterior cerebral artery: No occlusion or significant stenosis. No aneurysm. Left internal carotid artery: Intracranial segment is patent with no significant stenosis. No aneurysm. Left middle cerebral artery: No occlusion or significant stenosis. No aneurysm. Left anterior cerebral artery: Absent A1 segment on the left. A2 on the left segment fills via collateral flow from the right. POSTERIOR CIRCULATION: Right vertebral artery: No occlusion or significant stenosis. No aneurysm. Left vertebral artery: No occlusion or significant stenosis. No aneurysm. Basilar artery: No occlusion or significant stenosis. No aneurysm. Right posterior cerebral artery: Hypoplastic P1 segment on the right. Persistent origin of the right posterior cerebral artery. Left posterior cerebral artery: No occlusion or significant stenosis. No aneurysm. IMPRESSION: No acute findings. Electronically signed by: Jacques Nielson On 07/10/2020 21:27:27 PM ASSESSMENT AND PLAN: 65-year-old female with history of medical noncompliance, schizophrenia, paroxysmal atrial flutter, noncompliant with eliquis. osteoarthritis, chronic back pain, depression, anxiety, osteoarthritis, abdominal hernia and history of tubal ligation presented to the emergency room with complaints of ataxia for 2 days with complaints of dizziness, poor balance and tinnitus in the left ear. Evaluation included CT of the head, MRI of the brain, all of which were negative. Electrolytes were negative and orthostasis was negative Vertigo -Most likely peripheral vertigo with negative findings on MRI, MRA of the brain for acute cerebellar CVA -PT, OT have been consulted for home safety evaluation -As needed, meclizine Paroxysmal atrial flutter -Rate controlled -[facility] pharmacy to confirm patient's home medications Schizophrenia, depression, anxiety -May resume home medications once confirmed by [facility] pharmacy Medical noncompliance -Home care referral Osteoarthritis with chronic back pain -Did not complain of any symptoms during this admission Disposition await PT, OT recommendations. VS, I&O, 24H, [facility] Vital Signs/I&O Vital Signs Date Time Temp Pulse Resp B/P (MAP) Pulse Ox O2 Delivery O2 Flow Rate FiO2 07/11/20 09:30 66 136/77 (96) 66 128/66 (86) 66 124/67 (86) 07/11/20 06:00 98.0 18 95 07/10/20 21:50 Room Air I&O- Last 24 Hours up to 6 AM 07/11/20 06:00 Intake Total 750 ml Output Total 200 ml Balance 550 ml Laboratory Data 24H LABS Laboratory Tests 2 07/10/20 13:15: Immature Granulocyte % (Auto) 0.5, Neutrophils (%) (Auto) 78.5H, Lymphocytes (%) (Auto) 14.3L, Monocytes (%) (Auto) 5.9H, Eosinophils (%) (Auto) 0.5, Basophils (%) (Auto) 0.3, Neutrophils # (Auto) 7.3, Lymphocytes # (Auto) 1.3L, Monocytes # (Auto) 0.6, Eosinophils # (Auto) 0.1, Basophils # (Auto) 0.0, Nucleated Red Blood Cells % (auto) 0.0, Prothrombin Time 13.2, Prothromb Time International Ratio 0.98, Activated Partial Thromboplast Time 26.3, Anion Gap 5L, Glomerular Filtration Rate > 60.0, Calcium Level 8.9, Total Bilirubin 0.6, Direct Bilirubin 0.1, Aspartate Amino Transf (AST/SGOT) 20, Alanine Aminotransferase (ALT/SGPT) 21, Alkaline Phosphatase 65, Total Creatine Kinase 64, Creatine Kinase MB < 1.0, Creatine Kinase MB Relative Index 1.56, Troponin I < 0.02, Total Protein 7.2, Albumin 3.4, Albumin/Globulin Ratio 0.9L, Thyroid Stimulating Hormone (TSH) 0.512, Free Thyroxine 0.81 07/10/20 16:36: Coronavirus (COVID-19)(PCR) NEGATIVE, Influenza Type A (RT-PCR) NEGATIVE, Influenza Type B (RT-PCR) NEGATIVE, Respiratory Syncytial Virus (PCR) NEGATIVE 07/11/20 07:35: Nucleated Red Blood Cells % (auto) 0.0, Anion Gap 7L, Glomerular Filtration Rate > 60.0, Calcium Level 8.5L, Estimated Mean Plasma Glucose 151H, Hemoglobin A1c 6.9 CBC/BMP Laboratory Tests 07/10/20 13:15 07/11/20 07:35 ANGEL COLBY MD Jul 11, 2020 10:12
[2020-07-11] MEDS ORDERED: MECL-86 PO (10:25)
[2020-07-11] MEDS ORDERED: ELIQ5TAB PO (10:25)
[2020-07-11] MEDS ORDERED: SELF1KIT MC (10:29)
[2020-07-11] MEDS ORDERED: LOPR1TAB6 PO (10:29)
[2020-07-11 11:44] LABS: VITAMIN B12 LEVEL 309 PG/ML (247-911)
--- NOTE | 2020-07-11 17:20 | DS.PDOC ---
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 osteoarthritis, chronic back pain, depression, anxiety, osteoarthritis, abdominal hernia and history of tubal ligation presented to the emergency room with complaints of ataxia for 2 days with complaints of dizziness, poor balance and tinnitus in the left ear. Evaluation included CT of the head, MRI of the brain, all of which were negative. Electrolytes were negative and orthostasis was negative Vertigo -Most likely peripheral vertigo with negative findings on MRI, MRA of the brain for acute cerebellar CVA -PT, OT consulted -As needed, meclizine Paroxysmal atrial flutter -Rate controlled -Per Dr. Pedro's note from previous admission, recommendations include metoprolol and eliquis. Schizophrenia, depression, anxiety -May resume home medications once confirmed by [facility] pharmacy Medical noncompliance -Home care referral Osteoarthritis with chronic back pain -Did not complain of any symptoms during this admission DISCHARGE PHYSICAL EXAMINATION: VITAL SIGNS: Please see below. GENERAL: Awake, alert, oriented 3, answering questions appropriately. No respiratory distress HEENT: No JVD, no thyromegaly, no cervical lymphadenopathy. Moist mucous membranes CARDIOVASCULAR: S1, S2, irregularly irregular, not tachycardic. No carotid bruit RESPIRATORY: Clear to auscultation. Wheezing or rales ABDOMINAL: Positive bowel sounds, soft, nontender, nondistended EXTREMITIES: No cyanosis or clubbing NEURO: . Her motor function is 5 / 54 extremities. . No sensory disturbance Mild dysmetria on finger to nose testing with action tremors. No pronator drift Negative Babinski bilaterally LABORATORY DATA, IMAGING STUDIES, MICROBIOLOGY: Please see below. Portable upright AP chest radiograph. FINDINGS: Monitoring electrodes are present. The lungs are well inflated and clear. The pleural angles are sharp. Heart size is borderline. The aorta is tortuous. Pulmonary vasculature is not increased.. IMPRESSION: No active disease. <Electronically signed by Se Wong 07/10/20 1340 Exam: MR Head Without Contrast Exam date and time: 07/10/2020 8:03 PM Age: 65 years old Clinical indication: Altered mental status/memory loss and dizziness; Patient HX: Confusion, dizziness, AMS; Additional info: CVA TECHNIQUE: Imaging protocol: MR of the head without contrast. COMPARISON: CT Head without contrast 07/10/2020 1:19 PM FINDINGS: Brain: Normal. No acute infarct. No hemorrhage. No significant white matter disease. No edema. Cerebral ventricles: Normal. No ventriculomegaly. Bones/joints: Unremarkable. Paranasal sinuses: Normal as visualized. No acute sinusitis. Mastoid air cells: Normal as visualized. No mastoid effusion. Orbital cavity: Unremarkable. Soft tissues: Unremarkable. IMPRESSION: No acute findings. Electronically signed by: Jacques Nielson On 07/10/2020 21:23:45 PM Exam: MR Angiogram Head Without Contrast, Arteries Exam date and time: 07/10/2020 8:03 PM Age: 65 years old Clinical indication: Pain; Headache; Patient HX: Confusion, dizziness, AMS; Additional info: CVA TECHNIQUE: Imaging protocol: MR angiogram head without contrast. Exam focused on the arteries. 3D rendering (Not supervised by radiologist): MIP and/or 3D reconstructed images were created by the technologist. COMPARISON: CT Head without contrast 07/10/2020 1:19 PM FINDINGS: ANTERIOR CIRCULATION: Right internal carotid artery: Intracranial segment is patent with no significant stenosis. No aneurysm. Right middle cerebral artery: No occlusion or significant stenosis. No aneurysm. Right anterior cerebral artery: No occlusion or significant stenosis. No aneurysm. Left internal carotid artery: Intracranial segment is patent with no significant stenosis. No aneurysm. Left middle cerebral artery: No occlusion or significant stenosis. No aneurysm. Left anterior cerebral artery: Absent A1 segment on the left. A2 on the left segment fills via collateral flow from the right. POSTERIOR CIRCULATION: Right vertebral artery: No occlusion or significant stenosis. No aneurysm. Left vertebral artery: No occlusion or significant stenosis. No aneurysm. Basilar artery: No occlusion or significant stenosis. No aneurysm. Right posterior cerebral artery: Hypoplastic P1 segment on the right. Persistent origin of the right posterior cerebral artery. Left posterior cerebral artery: No occlusion or significant stenosis. No aneurysm. IMPRESSION: No acute findings. Electronically signed by: Jacques Nielson On 07/10/2020 21:27:27 PM TIME SPENT ON DISCHARGE: 30 MINUTES Vital Signs/I&Os Vital Signs Date Time Temp Pulse Resp B/P (MAP) Pulse Ox O2 Delivery O2 Flow Rate FiO2 07/11/20 09:30 66 136/77 (96) 66 128/66 (86) 66 124/67 (86) 07/11/20 06:00 98.0 18 95 07/10/20 21:50 Room Air I&O- Last 24 Hours up to 6 AM 07/11/20 06:00 Intake Total 750 ml Output Total 200 ml Balance 550 ml Laboratory Data Labs 24H Laboratory Tests 2 07/11/20 07:35: Nucleated Red Blood Cells % (auto) 0.0, Anion Gap 7L, Glomerular Filtration Rate > 60.0, Estimated Mean Plasma Glucose 151H, Hemoglobin A1c 6.9, Calcium Level 8.5L, Vitamin B12 Level 309 CBC/BMP Laboratory Tests 07/11/20 07:35 Discharge Medications Scheduled Apixaban (Eliquis) 5 Mg Tablet, 5 MG PO BID Scheduled PRN Meclizine HCl (Meclizine HCl) 25 Mg Tablet, 25 MG PO TIDP PRN for dizziness Metoprolol Tartrate (Lopressor) 50 Mg Tablet, 50 MG PO BIDP PRN for hr>120 Allergies Coded Allergies: levofloxacin (Verified Adverse Reaction, Unknown, DIARRHEA, 12/28/19) ANGEL COLBY MD Jul 11, 2020 17:20
== END 2020-07-11 13:29 | disposition home or self-care (01) | DRG 149 ==
LOC: M ED 12:34 → M ED INP 17:24 → M MSPAV 21:55
PROVIDERS: ADMIT Internal Medicine; ATTEND General Practice
DX: H81.399 Other peripheral vertigo, unspecified ear (principal); I48.92 Unspecified atrial flutter; R27.0 Ataxia, unspecified; F20.9 Schizophrenia, unspecified; F32.9 Major depressive disorder, single episode, unspecified; F41.9 Anxiety disorder, unspecified; M19.90 Unspecified osteoarthritis, unspecified site; Z91.128 Patient's intentional underdosing of medication regimen for other reason; I44.0 Atrioventricular block, first degree; T45.516A Underdosing of anticoagulants, initial encounter; Z91.14 Patient's other noncompliance with medication regimen; Z11.52 Encounter for screening for COVID-19; Z88.1 Allergy status to other antibiotic agents

== ENCOUNTER 2020-08-14 10:27 | Emergency (ER) | payer MEDICARE, MEDICAID ==
[~2020-08-14] VITALS: Ht 167.6 cm; Wt 126.8 kg
[~2020-08-14 10:27] MED LIST changes: +MECL-86 PO; +SELF1KIT MC
--- OUTSIDE RECORDS SUMMARY | 2020-08-14 10:35 | CCD ---
Author Author [facility] Organization [facility] Address Unknown Phone Unavailable Care Team Providers Care Senior Account Director Name Role Phone Delisa Pedro MD Unavailable Unavailable Delisa Pedro [...] Unavailable Delisa Pedro MD Unavailable Unavailable Delisa Pdero MD Unavailable Unavailable [...] Unavailable Unavailable Delisa Pedro MD Unavailable Unavailable Dleisa Pedro MD Unavailable Unavailable Loni Araujo SIGN WIRER SIGN WIRER Unavailable Unavailable Humera Araujo SIGN WIRER Unavailable Unavailable Humera Araujo SIGN WIRER Unavailable Unavailable Humera Araujo SIGN WIRER Unavailable Unavailable Humera Araujoandra SIGN WIRER Unavailable Unavailable Van, A Loni SIGN WIRER Unavailable Unavailable Van, A Loni SIGN WIRER Unavailable Unavailable Van, A Loni SIGN WIRER Unavailable Unavailable Van, A Loni SIGN WIRER Unavailable Unavailable Van, A Loni SIGN WIRER Unavailable Unavailable Van, A Loni SIGN WIRER Unavailable Unavailable Van, A Loni SIGN WIRER Unavailable Unavailable Van, A Loni SIGN WIRER Unavailable Unavailable Van, A Loni SIGN WIRER Unavailable Unavailable Van, A Loni SIGN WIRER Unavailable Unavailable Van, A Loni SIGN WIRER Unavailable Unavailable Van, A Loni SIGN WIRER Unavailable Unavailable Van, A Loni SIGN WIRER Unavailable Unavailable Van, A Loni SIGN WIRER Unavailable Unavailable Van, A Loni SIGN WIRER Unavailable Unavailable Van, A Loni SIGN WIRER Unavailable Unavailable Van, A Loni SIGN WIRER Unavailable Unavailable Van, A Loni SIGN WIRER Unavailable Unavailable Van, A Loni SIGN WIRER Unavailable Unavailable Van, A Loni SIGN WIRER Unavailable Unavailable Van, A Loni SIGN WIRER Unavailable Unavailable Van, A Loni SIGN WIRER Unavailable Unavailable Van, A Loni SIGN WIRER Unavailable Unavailable Van, A Loni SIGN WIRER Unavailable Unavailable EGORHO, F VLAD FPMHNP Unavailable [...] is protected by Article 27-F of the [place] State Public Health law. If you continue you may have access to information: Regarding HIV / AIDS; Provided by facilities licensed or operated by the [facility] Office of Mental Health; or Provided by the [facility] Office for People With Developmental Disabilities. If such information is present, then the following [facility] mandated warning applies: This information has been [...] law may result in a fine or correction sentence or both. A general authorization for the release of medical or other information is NOT sufficient authorization for further disc losure. Allergies and Adverse Reactions Type Description Substance Reaction Status Data Source(s ) Propensity to adverse reactions to substance nkda 24 HR Bupropion Hydrochloride 150 MG Extended Release Oral Tablet Active [facility] ([facility]) Encounters Encounter Providers Location Date Indications Data Source(s ) Outpatient Attender: VLAD BATISTABERNARDINO [facility] 02/29/2020 10:00:00 AM EDT - 02/29/2020 10:00:00 AM EDT [facility] ([facility]) Attender: VLAD BATISTABERNARDINO 02/29/2020 12:00: 00 AM EDT [facility] ([facility]) Outpatient Attender: Delisa Pedro MD [email or web address] 12/22 12:00:00 AM EDT - 01/19/2020 02:23:26 PM EDT [facility] 02:57:[address] [facility] 02:54:[address] [facility] 02:53:[address] [facility] Outpatient Attender: MARIBELL REYNA 01/06/2020 01:20:[address] [facility] 01:18:[address] [facility] Outpatient Attender: MARIBELL Araujo [facility] 01/06/2020 01:17:[address] [facility] Outpatient Attender: Loni Araujo [facility] 01/06/2020 11:1 6:[address] [facility] Outpatient Attender: MARIBELL Araujo [facility] 01/06/2020 10:51:[address] [facility] Outpatient Attender: MARIBELL Araujo [facility] 01/06/2020 10:50:[address] [facility] Outpatient Attender: MARIBELL Araujo [facility] 01/05/2020 05:06:[address] [facility] Outpatient Attender: Loni Araujo [facility] 01/05/2020 03:4 2:[address] [facility] Outpatient Attender: MARIBELL Araujo [facility] 01/05/2020 11:50:[address] [facility] Outpatient Attender: MARIBELL Araujo [facility] 01/03/2020 12:07:[address] [facility] Outpatient Attender: MARIBELL Araujo [facility] 12/03/2019 09:36:[address] [facility] Outpatient Attender: Loni Araujo [facility] 12/01/2019 03:4 4:[address] [facility] Outpatient Attender: MARIBELL Araujo [facility] 11/03/2019 02:47:[address] [facility] Outpatient Attender: MARIBELL Araujo [facility] 09/17/2019 08:01:[address] [facility] Functional Status Medications Medication Brand Name Start Date Product Form Dose Route Admi nistrative Instructions Pharmacy Instructions Status Indications Reaction Description Data Source(s) Meclizine Hydrochloride 25 MG Oral Tablet MECLIZINE HCL 07/19/2020 12:00:00 AM EST tablet 30 TAKE ONE TABLET BY MOUTH THREE TIMES A DAY NEEDED FOR DIZZINESS TAKE ONE TABLET BY MOUTH THREE TIMES A DAY NEEDED F OR DIZZINESS SOLD: 07/21/2020 [facility] 5 mg 07/11/2020 12:00:00 AM EST tablet 60 TAKE ONE TABLET BY MOUTH TWICE A DAY TAKE ONE TABLET BY MOUTH TWICE A DAY SOLD: 07/11/2020 [facility] Meclizine Hydrochloride 25 MG Oral Tablet MECLIZINE HCL 07/11/2020 12:00:00 AM EST tablet 30 TAKE ONE TABLET BY MOUTH THREE TIMES A DAY NEEDED FOR DIZZINESS TAKE ONE TABLET BY MOUTH THREE TIMES A DAY NEEDED F OR DIZZINESS SOLD: 07/11/2020 [facility] 50 mg 07/11/2020 12:00:00 AM EST tablet 60 TAKE ONE TABLET BY MOUTH TWICE A DAY NEEDED FOR HR > 120 TAKE ONE TABLET BY MOUTH TWICE A DAY NEEDED FOR HR > 120 SOLD: 07/11/2020 [facility] 10 mg 02/02/2020 12:00:00 AM EDT tablet 30 TAKE ONE TABLET BY MOUTH EVERY DAY TAKE ONE TABLET BY MOUTH EVERY DAY SOLD: 02/03/2020 [facility] 400 mg 02/02/2020 12:00:00 AM EDT suspension,extended rel syring 1 INJECT 400MG INTRAMUSCULARLY ONCE EVERY FOUR WEEKS INJECT 400MG INTRAMUSCULARLY ONCE EVERY FOUR WEEKS SOLD: 02/03/2020 [facility] aripiprazole 10 MG Oral Tablet aripiprazole 02/01/2020 12:00:00 AM ED T 10 mg by mouth completed [id number] aripiprazole by mouth [id number] 0 02/01/2020 03/02/2020 once a day 30 10 mg tablet [id number] Chi ka Egorho [id number] Nurse Practitioner [facility] ([facility]) 10 mg 01/03/2020 12:00:00 AM [...] DAY AT BEDTIME FOR MOOD SOLD: 01/12/2020 [facility] Insurance Providers Payer name Policy type / Coverage type Policy ID Covered alliance party ID Covered alliance party's relationship to sarmiento Policy Sarmiento Plan Information [id number] [id number] SP [id number] [facility] MCRHMO [id number] SP [id number] UNHC COMMUNITY PLAN MCDHMO [id number] SP [id number] MEDICARE [id number] SP [id number] UN COMMUNITY PLAN MCDHMO [id number] SP [id number] [facility] [id number] SP [id number] MEDICARE COMPLETE [id number] SP [id number] MEDICARE [id number] SP [id number] [facility] MEDICARE [id number] Sunshine [id number] [facility] P [id number] S [id number] Medicaid S [id number] S [id number] [facility] [employer] P [id number] S [id number] EMEDNY [id number] SP [id number] [facility] MCRHMO [id number] SP [id number] [facility] Secure [employer]izons P [id number] S [id number] MEDICAID [id number] SP [id number] MEDICAID M [id number] S [id number] MEDICARE C [id number] S [id number] [facility] MCRHMO [id number] SP [id number] MEDICAID [id number] SP [id number] [facility] [employer] P [id number] S [id number] Medicaid S [id number] S [id number] SELF PAY ONLY [id number] SP [id number] [facility] [employer] P [id number] S [id number] Medicare S [id number] S [id number] A MEDICARE [id number] SP [id number] A Managed Care - Community Plan [facility] P [id number] S [id number] Medicare P [id number] S [id number] A Medicaid S [id number] Managed Care - Community Plan [facility] P [id number] S [id number] UNHC COMMUNITY PLAN MCDHMO [id number] SP [id number] Managed Care - Community Plan [facility] P [id number] S [id number] Medicaid S [id number] Managed Care BCBS O [id number] S [id number] [employer] PLAN [id number] SP [id number] [facility] BLUE [id number] SP [id number] Problems, Conditions, and Diagnoses Code Display Name Description Problem Type Effective Dates Data Source(s) F32.0 Major depressive disorder, single episod e, mild Major Depressive Disorder, Single episode, Mild Condition 02/29/2020 12:00:00 AM EDT [facility] ([facility]) 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 Other Specified Schizophrenia Spectrum and Other Psych otic Disorder Condition 02/29/2020 12:00:00 AM EDT [facility] ([facility]) I48.92 Unspecified atrial flutter Unspecified atrial flutter Diagnosis 01/19/2020 12:54:58 PM EDT [facility] Surgeries/Procedures Procedure Description Date Indications Data Source(s) OFFICE OUTPATIENT VISIT 15 MINUTES 02/28 12:00:00 AM EDT - 02/29/2020 12:00:00 AM EDT [facility] ([facility]) OFFICE OUTPATIENT VISIT 15 MINUTES 02/29/2020 12:00:00 AM EDT [facility] ([facility]) Results ID Date Data Source [id number] 07/10/2020 04:36:00 PM EST [facility] Name Value Range Interpretation Code Description Data Xochitl rce(s) Supporting Document(s) SARS coronavirus 2 RNA [Presence] in Res piratory specimen by SP[facility] with probe detection [facility]GAT[facility] was ordered by [facility] a nd reported by [facility]. ID Date Data Source [id number] 01/06/2020 10:48:[address] [facility] Measurements & CalculationsHeight: 67 inches (5 [...] been admitted to the hospital? Yes [facility] you been to an emergency room [...] MARCO-2 Score: 3Generalized Anxiety Disorder 7-Item Screening (MAROC-7)Answer Guide:0 = Not at all1 = Several [...] assessed. She has an appointment with her Environmental Remediation Specialist in 2 weeks. Has had issues in the past with atrial fibrillation. Currently asymptomatic.HPI performed by: Ventura Medellin MD, January 06, 2020 11:03 AMTransitions of Care InboundProblem ReviewProblem List was reviewed and/or updated during this visit.Medication Reconciliation & ReviewMedication List was reviewed and/or updated during this visit, including review of any fgfe-xrb-uxutcti medications, herbal therapies, and/or supplements.Allergy ReviewAllergy List [...] intercostal retractions or use of accessory musclesCardiovascular, Auscultation: S1, S2 audible; no murmur, rub, or gallop; RRRGait & Station: normalSkin, Inspection: no rashes, lesions, or ulcerationsOrientation: oriented to time, place, and personMood & Affect: no depression, anxiety, or agitationJudgment & Insight: intactCare Management Plan Transitions of CareInboundRate Your HealthIn general, would you say your health is? Very GoodAssessment & Plan Problems:Assessed:Schizophrenia (ICD-295.90) (LPN75-E03.9) Assessment: Instructions: With recent hospital admit.Doing much better now.Continue current plan and recheck as scheduled with Psychiatrist next week.Unspecified atrial fibrillation (XFD02-K29.91) Assessment: Instructions: With recent flare of this while inpatient.Currently symptoms free.Keep appointment in 2 weeks with Environmental Remediation Specialist.Patient Instructions/Care Plan: Schizophrenia: With recent hospital admit.Doing much better now.Continue current plan and recheck as scheduled with Psychiatrist next week.Unspecified atrial fibrillation: With recent flare of this while inpatient.Currently symptoms free.Keep appointment in 2 weeks with Environmental Remediation Specialist. Plan developed in collaboration with patient and/or [...] (Moderate)Orders:Adult - Ofc Vst, EST, Level III [CPT-07029] Name Value Range Interpretation Code Description Data Xochitl rce(s) Supporting Document(s) Procedure Social History Code Duration Value Status Description Data Source(s ) Smoking 02/29/2020 12:00:00 AM EDT Unknown if ever smoked comp leted Unknown if ever smoked [facility] ([facility]) Vital Signs ID Date Data Source UNK Name Value Range Interpretation Code Description Data Source(s) Diastolic blood pressure 0 mm[Hg] Normal (applies to non-numeric results) 0 mm[Hg] [facility] ([facility]) Systolic blood pressure 0 mm[Hg] Normal (applies t o non-numeric results) 0 mm[Hg] [facility] ([facility]) Body mass index (BMI) [Ratio] 0.00 kg/m2 No rmal (applies to non-numeric results) 0.00 kg/m2 [facility] ([facility]) Body weight Measured 0.00 lbs Normal (applies to n on-numeric results) 0.00 lbs [facility] ([facility]) Body height 0.00 in Normal (applies to non-numeric resu lts) 0.00 in [facility] ([facility])
--- OUTSIDE RECORDS SUMMARY | 2020-08-14 13:26 | CCD ---
Author Author [facility] Organization [facility] Address Unknown Phone Unavailable Care Team Providers Care Window Assembler Name Role Phone Delisa Pedro MD Unavailable Unavailable Delisa Pedro MD Unavailable Unavailable Delisa Pedro MD Unavailable Unavailable Delisa Pedro MD Unavailable Unavailable Delisa Pedro MD Unavailable Unavailable Delisa Pedro MD Unavailable Unavailable Delisa Pedro MD Unavailable Unavailable Dleisa Pedro MD Unavailable Unavailable Delisa Pedro MD [...] Unavailable Unavailable Delisa Pedro MD Unavailable Unavailable Delsia Pedro MD Unavailable Unavailable Delisa Pedro MD [...] Unavailable Unavailable Delisa Pedro MD Unavailable Unavailable Loni Araujo YARD LABORER YARD LABORER Unavailable Unavailable Humera Araujo YARD LABORER Unavailable Unavailable Humera Araujo YARD LABORER Unavailable Unavailable Humera Araujo YARD LABORER Unavailable Unavailable Humera Araujo YARD LABORER Unavailable Unavailable Van, A Loni YARD LABORER Unavailable Unavailable Van, A Loni YARD LABORER Unavailable Unavailable Van, A Loni YARD LABORER Unavailable Unavailable Van, A Loni YARD LABORER Unavailable Unavailable Van, A Loni YARD LABORER Unavailable Unavailable Van, A Loni YARD LABORER Unavailable Unavailable Van, A Loni YARD LABORER Unavailable Unavailable Van, A Loni YARD LABORER Unavailable Unavailable Van, A Loni YARD LABORER Unavailable Unavailable Van, A Loni YARD LABORER Unavailable Unavailable Van, A Loni YARD LABORER Unavailable Unavailable Van, A Loni YARD LABORER Unavailable Unavailable Van, A Loni YARD LABORER Unavailable Unavailable Van, A Loni YARD LABORER Unavailable Unavailable Van, A Loni YARD LABORER Unavailable Unavailable Van, A Loni YARD LABORER Unavailable Unavailable Van, A Loni YARD LABORER Unavailable Unavailable Van, A Loni YARD LABORER Unavailable Unavailable Van, A Loni YARD LABORER Unavailable Unavailable Van, A Loni YARD LABORER Unavailable Unavailable Van, A Loni YARD LABORER Unavailable Unavailable Van, A Loni YARD LABORER Unavailable Unavailable Van, A Loni YARD LABORER Unavailable Unavailable Van, A Loni YARD LABORER Unavailable Unavailable EGORHO, F VLAD FPMHNP Unavailable [...] is protected by Article 27-F of the [facility] Public Health law. If you continue you may have access to information: Regarding HIV / AIDS; Provided by facilities licensed or operated by the [facility] Office of Mental Health; or Provided by the [facility] Office for People With Developmental Disabilities. If such information is present, then the following [facility] mandated warning applies: This information has [...] law may result in a fine or retirement sentence or both. A general authorization for the release of medical or other information is NOT sufficient authorization for further disc losure. Allergies and Adverse Reactions Type Description Substance Reaction Status Data Source(s ) Propensity to adverse reactions to substance nkda 24 HR Bupropion Hydrochloride 150 MG Extended Release Oral Tablet Active [facility] ([facility]) Encounters Encounter Providers Location Date Indications Data Source(s ) Outpatient Attender: VLAD GARNETT [facility] 02/29/2020 10:00:00 AM EDT - 02/29/2020 10:00:00 AM EDT [facility] ([facility]) Attender: VLAD BATISTABERNARDINO 02/29/2020 12:00: 00 AM EDT [facility] ([facility]) Outpatient Attender: Delisa Pedro MD [email or web address] 12/22 12:00:00 AM EDT - 01/19/2020 02:23:26 PM EDT [facility]/07/2020 02:57:00 P M EDT [facility] 01/07/2020 02:54:00 P M EDT [facility] 01/07/2020 02:53:00 P M EDT [facility] 01/06/2020 01:20:01 P M EDT [facility] 01/06/2020 01:18:00 P M EDT [facility] Outpatient Attender: MARIBELL Araujo [facility] 01/06/2020 01:17:01 P M EDT [facility] Outpatient Attender: Loni Araujo [facility] 01/06/2020 11:1 6:03 AM EDT [facility] Outpatient Attender: MARIBELL Araujo [facility] 01/06/2020 10:51:00 A M EDT [facility] Outpatient Attender: MARIBELL Araujo [facility] 01/06/2020 10:50:00 A M EDT [facility] Outpatient Attender: MARIBELL Araujo [facility] 01/05/2020 05:06:01 P M EDT [facility] Outpatient Attender: Loni Araujo [facility] 01/05/2020 03:4 2:00 PM EDT [facility] Outpatient Attender: MARIBELL Araujo [facility] 01/05/2020 11:50:00 A M EDT [facility] Outpatient Attender: MARIBELL Araujo [facility] 01/03/2020 12:07:01 P M EDT [facility] Outpatient Attender: MARIBELL Araujo [facility] 12/03/2019 09:36:01 A M EDT [facility] Outpatient Attender: Loni Araujo [facility] 12/01/2019 03:4 4:00 PM EDT [facility] Outpatient Attender: MARIBELL Araujo [facility] 11/03/2019 02:47:00 P M EDT [facility] Outpatient Attender: MARIBELL Araujo [facility] 09/17/2019 08:01:14 P M EDT [facility] Functional Status Medications Medication Brand Name [...] ED T 10 mg by mouth completed [id number] aripiprazole by mouth [id number] 0 02/01/2020 03/02/2020 once a day 30 10 mg tablet [id number] [facility] ka Egorho [id number] Nurse Practitioner [facility] ([facility]) 10 mg 01/03/2020 12:00:00 AM EDT [...] Covered democrat ID Covered democrat's relationship to duque Policy Duque Plan Information [facility] MCRHMO [id number] SP [id number] EMEDNY [id number] SP [id number] [facility] MCRHMO [id number] SP [id number] UNHC COMMUNITY PLAN MCDHMO [id number] SP [id number] MEDICARE [id number] SP [id number] UN COMMUNITY PLAN MCDHMO [id number] SP [id number] [facility] [id number] SP [id number] MEDICARE COMPLETE [id number] SP [id number] MEDICARE [id number] SP [id number] [facility] MEDICARE [id number] Sunshine [id number] [facility] P [id number] S [id number] Medicaid S [id number] S [id number] [facility] P [id number] S [id number] EMEDNY [id number] SP [id number] [facility] MCRHMO [id number] SP [id number] [facility] Secure Horizons P [id number] S [id number] MEDICAID [id number] SP [id number] MEDICAID M [id number] S [id number] MEDICARE C [id number] S [id number] A [facility] MCRHMO [id number] SP [id number] MEDICAID [id number] SP [id number] [facility] [employer] P [id number] S [id number] Medicaid S [id number] S [id number] SELF PAY ONLY [id number] SP [id number] [facility] Secure Horizons P [id number] S [id number] Medicare S [id number] S [id number] A MEDICARE [id number] SP [id number] A Managed Care - Community Plan [facility] P [id number] S [id number] Medicare P [id number] S [id number] A Medicaid S [id number] S [id number] Managed Care - Community Plan [facility] P [id number] S [id number] UNHC COMMUNITY PLAN MCDHMO [id number] SP [id number] Managed Care - Community Plan [facility] P [id number] S [id number] Medicaid S [id number] S [id number] Managed Care BCBS O [id number] S [id number] BLUE [employer] WREN PLAN [id number] SP [id number] [facility] BLUE [id number] SP [id number] Problems, Conditions, and Diagnoses Code Display Name Description Problem Type Effective Dates Data Source(s) F32.0 Major depressive disorder, single episod e, mild Major Depressive Disorder, Single episode, Mild Condition 02/29/2020 12:00:00 AM EDT [facility] ([facility]) 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 Other Specified Schizophrenia Spectrum and Other Psych otic Disorder Condition 02/29/2020 12:00:00 AM EDT [facility] ([facility]) I48.92 Unspecified atrial flutter Unspecified atrial flutter Diagnosis 01/19/2020 12:54:58 PM EDT [facility] Surgeries/Procedures Procedure Description Date Indications Data Source(s) OFFICE OUTPATIENT VISIT 15 MINUTES 02/28 12:00:00 AM EDT - 02/29/2020 12:00:00 AM EDT [facility] ([facility]) OFFICE OUTPATIENT VISIT 15 MINUTES 02/29/2020 12:00:00 AM EDT [facility] ([facility]) Results ID Date Data Source [id number] 07/10/2020 04:36:00 PM EST [facility] Name Value Range Interpretation Code Description Data Xochitl rce(s) Supporting Document(s) SARS coronavirus 2 RNA [Presence] in Res piratory specimen by SPARKLE with probe detection NEGATIVE [facility] This lab was ordered by [facility] a nd reported by [facility]. ID Date Data Source [id number] 01/06/2020 10:48:24 AM EDT [facility] Measurements & CalculationsHeight: 67 inches (5 [...] assessed. She has an appointment with her Digital Marketing Intern in 2 weeks. Has had issues in the past with atrial fibrillation. Currently asymptomatic.HPI performed by: Ventura Medellin MD, January 06, 2020 11:03 [facility] InboundProblem ReviewProblem List was reviewed and/or updated during this visit.Medication Reconciliation & ReviewMedication List was reviewed and/or updated during this visit, including review of any [id number] medications, herbal therapies, and/or supplements.Allergy ReviewAllergy List [...] is? Very GoodAssessment & Plan Problems:Assessed:Schizophrenia (ICD-295.90) (PRD79-T78.9) Assessment: Instructions: With recent hospital admit.Doing much better now.Continue current plan and recheck as scheduled with Psychiatrist next week.Unspecified atrial fibrillation (NXI23-F36.91) Assessment: Instructions: With recent flare of this while inpatient.Currently symptoms free.Keep appointment in 2 weeks with Digital Marketing Intern.Patient Instructions/Care Plan: Schizophrenia: With recent hospital admit.Doing much better now.Continue current plan and recheck as scheduled with Psychiatrist next week.Unspecified atrial fibrillation: With recent flare of this while inpatient.Currently symptoms free.Keep appointment in 2 weeks with Digital Marketing Intern. Plan developed in collaboration with patient and/or [...] (Moderate)Orders:Adult - Ofc Vst, EST, Level III [CPT-91566] Name Value Range Interpretation Code Description Data Xochitl rce(s) Supporting Document(s) Procedure Social History Code Duration Value Status Description Data Source(s ) Smoking 02/29/2020 12:00:00 AM EDT Unknown if ever smoked comp leted Unknown if ever smoked [facility] ([facility]) Vital Signs ID Date Data Source UNK Name Value Range Interpretation Code Description Data Source(s) Diastolic blood pressure 0 mm[Hg] Normal (applies to non-numeric results) 0 mm[Hg] [facility] ([facility]) Systolic blood pressure 0 mm[Hg] Normal (applies t o non-numeric results) 0 mm[Hg] [facility] ([facility]) Body mass index (BMI) [Ratio] 0.00 kg/m2 No rmal (applies to non-numeric results) 0.00 kg/m2 [facility] ([facility]) Body weight Measured 0.00 lbs Normal (applies to n on-numeric results) 0.00 lbs [facility] ([facility]) Body height 0.00 in Normal (applies to non-numeric resu lts) 0.00 in [facility] ([facility])
[2020-08-14 15:06] LABS: BASO % 0.3 % (0.0-1.0); EOS # 0.1 10^3/uL (0.0-0.5); EOS % 1.3 % (0.0-3.0); HEMATOCRIT 42.1 % (36.0-47.0); HEMOGLOBIN 13.5 g/dl (12.0-15.5); LYMPH # 2.7 10^3/uL (1.5-5.0); LYMPH % 29.2 % (24.0-44.0); MEAN CORPUSCULAR HGB CONC 32.1 g/dl (32.0-36.5); MEAN CORPUSCULAR VOLUME 90.3 fl (80.0-96.0); MONO # 0.8 10^3/uL (0.0-0.8); MONO % 8.5 % (2.0-8.0); NEUTROPHILS # 5.6 10^3/uL (1.5-8.5); NEUTROPHILS % 60.3 % (36.0-66.0); PLATELET COUNT, AUTOMATED 198 10^3/uL (150-450); RED BLOOD COUNT 4.66 10^6/uL (4.00-5.40); WHITE BLOOD COUNT 9.3 10^3/uL (4.0-10.0)
[2020-08-14 15:43] LABS: ALBUMIN 3.2 GM/DL (3.2-5.2); ALT/SGPT 19 U/L (12-78); BILIRUBIN,TOTAL 0.4 MG/DL (0.2-1.0); BLOOD UREA NITROGEN 17 MG/DL (7-18); CALCIUM LEVEL 8.2 MG/DL (8.8-10.2); CARBON DIOXIDE LEVEL 29 MEQ/L (21-32); CHLORIDE LEVEL 103 MEQ/L (98-107); CREATININE FOR GFR 0.74 MG/DL (0.55-1.30); FREE T4 0.91 NG/DL (0.76-1.46); GLOMERULAR FILTRATION RATE > 60.0 (>45); GLUCOSE, FASTING 127 MG/DL (70-100); MAGNESIUM LEVEL 2.1 MG/DL (1.8-2.4); SODIUM LEVEL 141 MEQ/L (136-145); THYROID STIMULATING HORMONE 0.702 uIU/ML (0.358-3.740); TOTAL PROTEIN 6.5 GM/DL (6.4-8.2)
--- NOTE | 2020-08-14 16:09 | ECGEPIP ---
[facility] - ED Test Date: 2020-08-14 Pat Name: DENVER DIALLO Department: Room: - Gender: Female Chief Lending Officer: : 1955 Requested By: LEDA Lebron Order Number: [id number] Reading MD: Edmundo Tobias Measurements Intervals [place] Rate: 90 P: 72 AK: 216 QRS: 95 QRSD: 78 T: 80 QT: 406 QTc: 496 Interpretive Statements Sinus rhythm with marked sinus arrhythmia with 1st degree AV block with premature atrial complexes Rightward axis Low voltage throughout Nonspecific ST-T wave abnormalities Prolonged QTc interval Rhythm change from 07-10-20 Electronically Signed on 08-14-2020 16:09:18 EST by Edmundo Tobias
--- NOTE | 2020-08-14 16:15 | ECGEPIP ---
[facility] - ED Test Date: 2020-08-14 Pat Name: DENVER DIALLO Department: Room: - Gender: Female Financial Reporting Accountant: marbella : 1955 Requested By: LEDA Lebron Order Number: [id number] Reading MD: Edmundo Tobias Measurements Intervals [place] Rate: 53 P: 44 [place]: 196 QRS: 27 QRSD: 84 T: 20 QT: 470 QTc: 441 Interpretive Statements Sinus bradycardia with occasional premature ventricular complexes Low voltage QRS throughout Nonspecific ST-T wave abnormalities QTc normalized from tracing done 13:10 on same date Electronically Signed on 08-14-2020 16:15:47 EST by Edmundo Tobias
[2020-08-14 16:35] VITALS: BP 149/65
[2020-08-14] MEDS ORDERED: MECL1TAB31 PO (16:38)
[2020-08-14] MEDS ORDERED: MECLIZINE 25 MG TABLET PO ONE (16:45)
[2020-08-14] MEDS ORDERED: vestibular PT (17:07)
== END 2020-08-14 18:15 | disposition home or self-care (01) ==
LOC: M ED 10:27
DX: H81.10 Benign paroxysmal vertigo, unspecified ear (principal); I48.92 Unspecified atrial flutter; Z88.1 Allergy status to other antibiotic agents; Z79.899 Other long term (current) drug therapy; Z79.01 Long term (current) use of anticoagulants

== ENCOUNTER 2020-10-08 18:38 | Emergency (ER) | payer MEDICAID, MEDICARE ==
[~2020-10-08] VITALS: Ht 167.6 cm; Wt 122.3 kg
[2020-10-08] VITALS (9 sets, daily range): BP systolic 115–145; BP diastolic 63–71
[~2020-10-08 18:38] MED LIST changes: +ASPI-569 PO; -ASPI81TAEC PO; +MECL1TAB31 PO; +vestibular PT
[2020-10-08 19:54] LABS: BASO % 0.3 % (0.0-1.0); EOS # 0.1 10^3/uL (0.0-0.5); EOS % 0.6 % (0.0-3.0); HEMATOCRIT 42.5 % (36.0-47.0); HEMOGLOBIN 13.5 g/dl (12.0-15.5); LYMPH # 1.9 10^3/uL (1.5-5.0); LYMPH % 19.6 % (24.0-44.0); MEAN CORPUSCULAR HEMOGLOBIN 29.3 pg (27.0-33.0); MEAN CORPUSCULAR HGB CONC 31.8 g/dl (32.0-36.5); MEAN CORPUSCULAR VOLUME 92.4 fl (80.0-96.0); MONO # 0.6 10^3/uL (0.0-0.8); MONO % 5.9 % (2.0-8.0); NEUTROPHILS # 6.9 10^3/uL (1.5-8.5); NEUTROPHILS % 73.2 % (36.0-66.0); PLATELET COUNT, AUTOMATED 201 10^3/uL (150-450); WHITE BLOOD COUNT 9.4 10^3/uL (4.0-10.0)
--- NOTE | 2020-10-08 20:06 | REPVR ---
PROCEDURE INFORMATION: Exam: XR Chest Exam date and time: 10/08/2020 8:02 PM Age: 65 years old Clinical indication: Other: CVA TECHNIQUE: Imaging protocol: XR of the chest. Views: 1 view. COMPARISON: TX PORTABLE CHEST X-RAY 07/10/2020 1:14 PM FINDINGS: Lungs: Unremarkable. No consolidation. Pleural spaces: Unremarkable. No pleural effusion. No pneumothorax. Heart/Mediastinum: Unremarkable. No cardiomegaly. Bones/joints: Unremarkable. IMPRESSION: No acute findings. Electronically signed by: Jacques Nielson On 10/08/2020 20:07:09 PM
--- NOTE | 2020-10-08 20:06 | REPVR ---
PROCEDURE INFORMATION: Exam: CT Head Without Contrast Exam date and time: 10/08/2020 7:42 PM Age: 65 years old Clinical indication: Weakness, extremity; Additional info: CVA - nursing interventions must not delay CT TECHNIQUE: Imaging protocol: Computed tomography of the head without contrast. Radiation optimization: All CT scans at this facility use at least one of these dose optimization techniques: automated exposure control; mA and/or kV adjustment per patient size (includes targeted exams where dose is matched to clinical indication); or iterative reconstruction. COMPARISON: CT Head without contrast 07/10/2020 1:19 PM FINDINGS: Brain: Normal. No hemorrhage. Unremarkable white matter. No mass effect. Cerebral ventricles: No ventriculomegaly. Bones/joints: Unremarkable. No acute fracture. Paranasal sinuses: Visualized sinuses are unremarkable. No fluid levels. Mastoid air cells: Visualized mastoid air cells are well aerated. Soft tissues: Unremarkable. IMPRESSION: No acute intracranial abnormality. Electronically signed by: Jacques Nielson On 10/08/2020 20:06:46 PM
[2020-10-08 20:11] LABS: INR 0.99; PROTHROMBIN TIME 13.3 SECONDS (12.5-14.3)
[2020-10-08 20:12] LABS: PARTIAL THROMBOPLASTIN TIME 24.4 SECONDS (24.2-38.5)
[2020-10-08 20:18] LABS: BLOOD UREA NITROGEN 20 MG/DL (7-18); CALCIUM LEVEL 8.8 MG/DL (8.8-10.2); CARBON DIOXIDE LEVEL 31 MEQ/L (21-32); CHLORIDE LEVEL 104 MEQ/L (98-107); CK-MB VALUE MASS < 1.0 NG/ML (<3.6); CPK CREATINE PHOSPHOKINASE 37 U/L (26-192); CREATININE FOR GFR 0.69 MG/DL (0.55-1.30); GLOMERULAR FILTRATION RATE > 60.0 (>45); GLUCOSE, FASTING 160 MG/DL (70-100); POTASSIUM SERUM 4.2 MEQ/L (3.5-5.1); SODIUM LEVEL 141 MEQ/L (136-145); TROPONIN I < 0.02 NG/ML (< 0.10)
--- NOTE | 2020-10-08 22:28 | REPVR ---
PROCEDURE INFORMATION: Exam: MRA Head Without Contrast; Arteriography Exam date and time: 10/08/2020 10:14 PM Age: 65 years old Clinical indication: Dizziness and giddiness; Additional info: Severe dizziness, HX of afib, noncompliance TECHNIQUE: Imaging protocol: Magnetic resonance angiography head without contrast. Exam focused on the arteries. COMPARISON: MRA BRAIN W/O CONTRAST 07/10/2020 7:56 PM FINDINGS: ANTERIOR CIRCULATION: Right internal carotid artery: Intracranial segment is patent with no significant stenosis. No aneurysm. Right middle cerebral artery: No occlusion or significant stenosis. No aneurysm. Right anterior cerebral artery: No occlusion or significant stenosis. No aneurysm. Left internal carotid artery: Intracranial segment is patent with no significant stenosis. No aneurysm. Left middle cerebral artery: No occlusion or significant stenosis. No aneurysm. Left anterior cerebral artery: The left anterior cerebral artery A1 segment is absent. Distal left anterior cerebral artery is supplied through the A-comm and is patent. POSTERIOR CIRCULATION: Right vertebral artery: No occlusion or significant stenosis. No aneurysm. Left vertebral artery: No occlusion or significant stenosis. No aneurysm. Basilar artery: No occlusion or significant stenosis. No aneurysm. 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 Left posterior cerebral artery: No occlusion or significant stenosis. No aneurysm. IMPRESSION: No significant stenosis, aneurysm, or large vessel occlusion. Electronically signed by: London Villaseñor On 10/08/2020 22:29:37 PM
--- NOTE | 2020-10-08 22:32 | REPVR ---
PROCEDURE INFORMATION: Exam: MR Head Without Contrast Exam date and time: 10/08/2020 10:14 PM Age: 65 years old Clinical indication: Dizziness; Additional info: Severe dizziness, HX of afib, noncompliance TECHNIQUE: Imaging protocol: MR of the head without contrast. COMPARISON: MRI-Brain without Contrast 07/10/2020 7:56 PM FINDINGS: Brain: Unremarkable. No acute infarct. No hemorrhage. No significant white matter disease. No edema. No midline shift or mass effect. Cerebral ventricles: Normal. No ventriculomegaly. Bones/joints: Unremarkable. Paranasal sinuses: Normal as visualized. No acute sinusitis. Mastoid air cells: Normal as visualized. No mastoid effusion. Orbits: Unremarkable. Soft tissues: Unremarkable. IMPRESSION: No acute findings. Electronically signed by: London Villaseñor On 10/08/2020 22:32:32 PM
--- NOTE | 2020-10-09 09:27 | ECGEPIP ---
[facility] - ED Test Date: 2020-10-08 Pat Name: DENVER DIALLO Department: Room: - Gender: Female Delivery Specialist: LR : 1955 Requested By: EDMUNDO REYNA Order Number: [id number] Reading MD: Edmundo Tobias Measurements Intervals [place] Rate: 63 P: 63 DC: 194 QRS: 53 QRSD: 82 T: 40 QT: 422 QTc: 431 Interpretive Statements Sinus rhythm with marked sinus arrhythmia Low voltage QRS throughout Nonspecific ST-T wave abnormalities Rate increased from tracing done 08-14-20 Electronically Signed on 10-09-2020 9:26:50 EDT by Edmundo Tobias
== END 2020-10-09 00:01 | disposition home or self-care (01) ==
LOC: M ED 18:38
DX: R42 Dizziness and giddiness (principal); Z91.19 Patient's noncompliance with other medical treatment and regimen; I48.91 Unspecified atrial fibrillation; F20.9 Schizophrenia, unspecified; Z79.899 Other long term (current) drug therapy; Z88.1 Allergy status to other antibiotic agents; Z87.891 Personal history of nicotine dependence

== ENCOUNTER 2020-10-12 14:10 | Emergency (ER) | payer MEDICARE ==
[~2020-10-12] VITALS: Ht 167.6 cm; Wt 119.5 kg
[2020-10-12] MEDS ORDERED: NS 1,000 ML IV SCH (14:25)
[2020-10-12] MEDS ORDERED: MECLIZINE 25 MG TABLET PO ONE (14:30)
--- NOTE | 2020-10-12 14:42 | REP ---
INDICATION: Altered Mental Status. COMPARISON: None. TECHNIQUE: Axial CT images with multiplanar reformations. FINDINGS: No acute bleed or acute large vessel territorial infarct. Ventricles, cisterns and sulci are within normal limits. No mass effect or midline shift. No abnormal fluid collections. Paranasal sinuses and mastoid air cells are clear IMPRESSION: No acute findings. <Electronically signed by Mynor Fraire > 10/12/20 [id number]
[2020-10-12 15:06] LABS: BASO % 0.4 % (0.0-1.0); EOS # 0.1 10^3/uL (0.0-0.5); EOS % 1.7 % (0.0-3.0); HEMATOCRIT 40.7 % (36.0-47.0); LYMPH # 1.8 10^3/uL (1.5-5.0); LYMPH % 24.3 % (24.0-44.0); MEAN CORPUSCULAR HEMOGLOBIN 29.6 pg (27.0-33.0); MEAN CORPUSCULAR HGB CONC 31.9 g/dl (32.0-36.5); MEAN CORPUSCULAR VOLUME 92.7 fl (80.0-96.0); MONO # 0.7 10^3/uL (0.0-0.8); MONO % 8.8 % (2.0-8.0); NEUTROPHILS # 4.9 10^3/uL (1.5-8.5); NEUTROPHILS % 64.5 % (36.0-66.0); PLATELET COUNT, AUTOMATED 193 10^3/uL (150-450); RED BLOOD COUNT 4.39 10^6/uL (4.00-5.40); WHITE BLOOD COUNT 7.5 10^3/uL (4.0-10.0)
[2020-10-12 15:33] LABS: ACETAMINOPHEN LEVEL < 2.0 UG/ML (10.0-30.0); ALBUMIN 3.4 GM/DL (3.2-5.2); ALT/SGPT 24 U/L (12-78); BILIRUBIN,DIRECT 0.1 MG/DL (0.0-0.2); BILIRUBIN,TOTAL 0.4 MG/DL (0.2-1.0); BLOOD UREA NITROGEN 18 MG/DL (7-18); CALCIUM LEVEL 8.3 MG/DL (8.8-10.2); CARBON DIOXIDE LEVEL 25 MEQ/L (21-32); CHLORIDE LEVEL 105 MEQ/L (98-107); CK-MB VALUE MASS 1.1 NG/ML (<3.6); CPK CREATINE PHOSPHOKINASE 85 U/L (26-192); CREATININE FOR GFR 0.57 MG/DL (0.55-1.30); GLOMERULAR FILTRATION RATE > 60.0 (>45); GLUCOSE, FASTING 127 MG/DL (70-100); MB/CK RELATIVE INDEX 1.29 (< OR =4); POTASSIUM SERUM 4.1 MEQ/L (3.5-5.1); SALICYLATE LEVEL 1.8 MG/DL (5.0-30.0); SODIUM LEVEL 138 MEQ/L (136-145); TOTAL PROTEIN 6.9 GM/DL (6.4-8.2); TROPONIN I < 0.02 NG/ML (< 0.10)
[2020-10-12 15:46] VITALS: BP 163/78
--- NOTE | 2020-10-12 18:19 | ECGEPIP ---
[facility] - ED Test Date: 2020-10-12 Pat Name: DENVER DIALLO Department: Room: - Gender: Female Rn Delivery: sweetie : 1955 Requested By: SALINA REYNA Order Number: [id number] Reading MD: Angely Cain Measurements Intervals [place] Rate: 49 P: 35 ID: [id number] QRS: 11 QRSD: 82 T: 23 QT: 444 QTc: 401 Interpretive Statements Sinus bradycardia Low voltage QRS prwp decreased rate 10/08/20 Electronically Signed on 10-12-2020 18:19:08 EDT by Angely Cain
== END 2020-10-12 16:03 | disposition home or self-care (01) ==
LOC: M ED 14:10
DX: R42 Dizziness and giddiness (principal); E78.5 Hyperlipidemia, unspecified; Z88.1 Allergy status to other antibiotic agents

== ENCOUNTER 2021-10-23 10:29 | Emergency (ER) | payer MEDICARE ==
[~2021-10-23] VITALS: Ht 167.6 cm; Wt 118.1 kg
[2021-10-23 11:34] LABS: HEMOGLOBIN 13.1 g/dl (12.0-15.5); MEAN CORPUSCULAR HEMOGLOBIN 29.2 pg (27.0-33.0); MEAN CORPUSCULAR HGB CONC 32.8 g/dl (32.0-36.5); MEAN CORPUSCULAR VOLUME 89.1 fl (80.0-96.0); PLATELET COUNT, AUTOMATED 214 10^3/uL (150-450); RED BLOOD COUNT 4.49 10^6/uL (4.00-5.40); WHITE BLOOD COUNT 7.5 10^3/uL (4.0-10.0)
[2021-10-23 11:54] LABS: AMPHETAMINES LEVEL URINE NEGATIVE (NEGATIVE); BARBITURATES URINE NEGATIVE (NEGATIVE); BENZODIAZEPINES URINE NEGATIVE (NEGATIVE); CANNABINOIDS URINE NEGATIVE (NEGATIVE); COCAINE METABOLITE URINE NEGATIVE (NEGATIVE); METHADONE URINE NEGATIVE (NEGATIVE); OPIATES URINE NEGATIVE (NEGATIVE); PHENCYCLIDINE URINE NEGATIVE (NEGATIVE)
[2021-10-23] MEDS ORDERED: MECL1TAB31 PO (12:07)
[2021-10-23] MEDS ORDERED: HOME MED LIST COMPLETE! XX SCH (12:10)
[2021-10-23 12:20] LABS: ACETAMINOPHEN LEVEL 10.8 UG/ML (10.0-30.0); ALBUMIN 3.4 GM/DL (3.2-5.2); ALT/SGPT 23 U/L (12-78); BILIRUBIN,DIRECT 0.2 MG/DL (0.0-0.2); BILIRUBIN,TOTAL 0.7 MG/DL (0.2-1.0); BLOOD UREA NITROGEN 17 MG/DL (7-18); CALCIUM LEVEL 8.9 MG/DL (8.8-10.2); CARBON DIOXIDE LEVEL 27 MEQ/L (21-32); CHLORIDE LEVEL 103 MEQ/L (98-107); CREATININE FOR GFR 0.69 MG/DL (0.55-1.30); ETHYL ALCOHOL (ETHANOL) < 0.003 % (0.000-0.010); GLOMERULAR FILTRATION RATE > 60.0 (>45); GLUCOSE, FASTING 209 MG/DL (70-100); POTASSIUM SERUM 4.3 MEQ/L (3.5-5.1); SALICYLATE LEVEL < 1.7 MG/DL (5.0-30.0); SODIUM LEVEL 138 MEQ/L (136-145); THYROID STIMULATING HORMONE 0.174 uIU/ML (0.358-3.740); TOTAL PROTEIN 7.1 GM/DL (6.4-8.2)
[2021-10-23 12:23] LABS: RSV AMPLIFICATION NEGATIVE (NEGATIVE)
[2021-10-23 13:16] LABS: FREE T4 0.88 NG/DL (0.76-1.46)
[2021-10-24 13:49] VITALS: BP 135/82
== END 2021-10-24 13:54 ==
LOC: M ED 10:29
DX: F20.9 Schizophrenia, unspecified (principal); I48.92 Unspecified atrial flutter; Z79.01 Long term (current) use of anticoagulants; Z88.1 Allergy status to other antibiotic agents; Z79.899 Other long term (current) drug therapy

== ENCOUNTER 2021-11-21 21:50 | Emergency (ER) | payer MEDICARE, MEDICAID ==
[2021-11-21] MEDS ORDERED: METF500T13 (22:22)
[2021-11-21] MEDS ORDERED: ROSU10TA6 (22:22)
[2021-11-21] MEDS ORDERED: ASPI-226 (22:22)
[2021-11-21] MEDS ORDERED: ARIP1TAB43 (22:22)
[2021-11-22 04:45] VITALS: BP 120/71
== END 2021-11-22 05:17 | disposition home or self-care (01) ==
LOC: EDBD 21:50 → M ED 21:50
DX: R42 Dizziness and giddiness (principal); F20.9 Schizophrenia, unspecified; Z88.1 Allergy status to other antibiotic agents; Z79.899 Other long term (current) drug therapy; Z79.82 Long term (current) use of aspirin; Z79.84 Long term (current) use of oral hypoglycemic drugs

== ENCOUNTER 2022-12-30 10:16 | Inpatient (IN) | payer MEDICARE, MEDICAID ==
[~2022-12-30] VITALS: Ht 167.6 cm; Wt 123.6 kg
[~2022-12-30 10:16] MED LIST changes: +ARIP1TAB43; +ASPI-226; +METF500T13; +ROSU10TA6
[2022-12-30 11:18] LABS: BASO % 0.5 % (0.0-1.0); EOS # 0.1 10^3/uL (0.0-0.5); EOS % 1.2 % (0.0-3.0); HEMOGLOBIN 13.4 g/dl (12.0-15.5); LYMPH # 1.6 10^3/uL (1.5-5.0); LYMPH % 24.5 % (24.0-44.0); MEAN CORPUSCULAR HGB CONC 31.9 g/dl (32.0-36.5); MONO # 0.4 10^3/uL (0.0-0.8); MONO % 6.7 % (2.0-8.0); NEUTROPHILS # 4.3 10^3/uL (1.5-8.5); NEUTROPHILS % 66.9 % (36.0-66.0); PLATELET COUNT, AUTOMATED 200 10^3/uL (150-450); RED BLOOD COUNT 4.47 10^6/uL (4.00-5.40); WHITE BLOOD COUNT 6.5 10^3/uL (4.0-10.0)
[2022-12-30] MEDS: METOPROLOL 5 MG/5 ML VIAL IV SCH ×3 (11:18→11:38)
[2022-12-30 11:39] LABS: CK-MB VALUE MASS < 1.0 NG/ML (<3.6)
[2022-12-30 11:40] LABS: INR 1.01; LIPASE 29 U/L (12-53); PROTHROMBIN TIME 13.5 SECONDS (12.5-14.5)
[2022-12-30 11:41] LABS: PARTIAL THROMBOPLASTIN TIME 26.2 SECONDS (24.8-34.2)
[2022-12-30 11:42] LABS: ALBUMIN 3.5 G/DL (3.2-5.2); ALKALINE PHOSPHATASE 59 U/L (46-116); ALT/SGPT 20 U/L (7.0-40); AST/SGOT < 8 U/L (<34); BILIRUBIN,DIRECT 0.5 MG/DL (<0.4); BILIRUBIN,TOTAL 1.5 MG/DL (0.3-1.2); BLOOD UREA NITROGEN 15 MG/DL (9-23); CALCIUM LEVEL 8.3 MG/DL (8.3-10.6); CARBON DIOXIDE LEVEL 27 MMOL/L (20-31); CHLORIDE LEVEL 102 MMOL/L (98-107); CREATININE FOR GFR 0.61 MG/DL (0.55-1.30); GLOMERULAR FILTRATION RATE > 60.0 (>45); GLUCOSE, FASTING 134 MG/DL (74-106); POTASSIUM SERUM 4.7 MMOL/L (3.5-5.1); SODIUM LEVEL 137 MMOL/L (136-145); TOTAL PROTEIN 6.7 G/DL (5.7-8.2)
[2022-12-30 11:43] LABS: THYROID STIMULATING HORMONE 0.585 uIU/ML (0.55-4.78)
[2022-12-30 11:45] LABS: CPK CREATINE PHOSPHOKINASE 27 U/L (34-145)
[2022-12-30 12:23] LABS: RSV AMPLIFICATION NEGATIVE (NEGATIVE)
[2022-12-30] MEDS ORDERED: METOPROLOL TART 50 MG TAB PO ONE (12:45)
[2022-12-30 13:35] LABS: CK-MB VALUE MASS < 1.0 NG/ML (<3.6)
[2022-12-30 13:36] LABS: CPK CREATINE PHOSPHOKINASE 33 U/L (34-145); MB/CK RELATIVE INDEX 3.03 (< OR =4)
[2022-12-30] MEDS ORDERED: DIGOXIN INJ 0.5 MG/2 ML AMP IV STA (13:51)
[2022-12-30] MEDS ORDERED: MAALOX 30 ML SUSP *UDC PO PRN (14:40)
[2022-12-30] MEDS ORDERED: MOM 30ML SUSPENSION UDC PO PRN (14:40)
[2022-12-30] MEDS ORDERED: UNRESOLVED CLARIFICATION ENTRY XX STA (14:55)
[2022-12-30] MEDS ORDERED: MED REC IN PROGRESS XX SCH (15:25)
[2022-12-30] MEDS ORDERED: MED REC CURRENTLY UNOBTAINABLE XX SCH (16:00)
[2022-12-30] MEDS ORDERED: HOME MED LIST COMPLETE! XX SCH (17:05)
[2022-12-30] MEDS: METOPROLOL TART 50 MG TAB PO SCH (18:01)
[2022-12-30] MEDS ORDERED: DIGOXIN INJ 0.5 MG/2 ML AMP IV ONE (19:00)
[2022-12-30 19:42] LABS: HEMOGLOBIN A1c 8.1 % (4.0-6.0)
[2022-12-30] MEDS: APIXABAN 5 MG TAB (ELIQUIS) PO SCH (20:00)
[2022-12-30] MEDS: DOCUSATE SODIUM 100MG CAPSULE PO SCH (21:00)
[2022-12-30 22:00] VITALS: TEMP 98.5
[2022-12-30 22:14] VITALS: BP 142/84; TEMP 97.8; O2SAT 93
[2022-12-30 23:07] VITALS: BP 151/89; TEMP 97.3; O2SAT 93
[2022-12-31] MEDS: METOPROLOL TART 50 MG TAB PO SCH ×4 (01:09→18:29)
[2022-12-31] MEDS: ACETAMINOPHEN TAB 650MG DOSE (2X325MG) PO PRN ×2 (02:34→14:10)
[2022-12-31 03:40] VITALS: BP 137/68; TEMP 97.6; O2SAT 93
[2022-12-31 06:08] LABS: BASO % 0.4 % (0.0-1.0); EOS # 0.1 10^3/uL (0.0-0.5); EOS % 1.3 % (0.0-3.0); HEMATOCRIT 40.8 % (36.0-47.0); HEMOGLOBIN 13.2 g/dl (12.0-15.5); LYMPH # 2.2 10^3/uL (1.5-5.0); LYMPH % 28.8 % (24.0-44.0); MEAN CORPUSCULAR HEMOGLOBIN 30.1 pg (27.0-33.0); MEAN CORPUSCULAR HGB CONC 32.4 g/dl (32.0-36.5); MEAN CORPUSCULAR VOLUME 92.9 fl (80.0-96.0); MONO # 0.5 10^3/uL (0.0-0.8); MONO % 6.9 % (2.0-8.0); NEUTROPHILS # 4.7 10^3/uL (1.5-8.5); NEUTROPHILS % 62.2 % (36.0-66.0); PLATELET COUNT, AUTOMATED 188 10^3/uL (150-450); RED BLOOD COUNT 4.39 10^6/uL (4.00-5.40); WHITE BLOOD COUNT 7.5 10^3/uL (4.0-10.0)
[2022-12-31 06:39] LABS: BLOOD UREA NITROGEN 18 MG/DL (9-23); CALCIUM LEVEL 8.5 MG/DL (8.3-10.6); CARBON DIOXIDE LEVEL 27 MMOL/L (20-31); CHLORIDE LEVEL 100 MMOL/L (98-107); CREATININE FOR GFR 0.75 MG/DL (0.55-1.30); GLOMERULAR FILTRATION RATE > 60.0 (>45); GLUCOSE, FASTING 116 MG/DL (74-106); MAGNESIUM LEVEL 1.9 MG/DL (1.8-2.4); POTASSIUM SERUM 4.3 MMOL/L (3.5-5.1); SODIUM LEVEL 137 MMOL/L (136-145)
[2022-12-31] MEDS ORDERED: LOPR1TAB7 PO (07:12)
[2022-12-31] MEDS ORDERED: SELF1KIT MC (07:12)
[2022-12-31] MEDS ORDERED: CRES10TA PO (07:12)
[2022-12-31] MEDS ORDERED: ELIQ5TAB PO (07:12)
[2022-12-31] MEDS ORDERED: propofoL 200 MG/20 ML VIAL As Ordered ONE (07:29)
[2022-12-31] MEDS ORDERED: LIDOCAINE 2% 100MG/5ML SDV (FOR ANES.) As Ordered ONE (07:29)
[2022-12-31 08:00] VITALS: BP 126/62; TEMP 96.7; O2SAT 94
[2022-12-31] MEDS: DOCUSATE SODIUM 100MG CAPSULE PO SCH ×2 (09:05→20:33)
[2022-12-31] MEDS: ROSUVASTATIN 10 MG TAB (CRESTOR) PO SCH (09:06)
[2022-12-31] MEDS: APIXABAN 5 MG TAB (ELIQUIS) PO SCH ×2 (09:06→20:33)
[2022-12-31 12:25] VITALS: BP 122/73; TEMP 97.3; O2SAT 92
[2022-12-31 15:38] VITALS: BP 108/63; TEMP 96.9; O2SAT 92
[2022-12-31 19:00] VITALS: BP 133/89; TEMP 97.7; O2SAT 94
[2022-12-31 22:00] VITALS: BP 134/83; TEMP 97; O2SAT 92
[2023-01-01] MEDS: METOPROLOL TART 50 MG TAB PO SCH ×3 (00:01→13:17)
[2023-01-01 05:55] VITALS: BP 133/84; TEMP 97.9; O2SAT 94
[2023-01-01] MEDS: ACETAMINOPHEN TAB 650MG DOSE (2X325MG) PO PRN (05:58)
[2023-01-01 06:12] LABS: BASO % 0.3 % (0.0-1.0); EOS # 0.1 10^3/uL (0.0-0.5); EOS % 1.7 % (0.0-3.0); HEMATOCRIT 40.4 % (36.0-47.0); HEMOGLOBIN 12.7 g/dl (12.0-15.5); LYMPH # 1.5 10^3/uL (1.5-5.0); MEAN CORPUSCULAR HEMOGLOBIN 29.2 pg (27.0-33.0); MEAN CORPUSCULAR HGB CONC 31.4 g/dl (32.0-36.5); MEAN CORPUSCULAR VOLUME 92.9 fl (80.0-96.0); MONO # 0.6 10^3/uL (0.0-0.8); MONO % 9.7 % (2.0-8.0); NEUTROPHILS # 3.7 10^3/uL (1.5-8.5); NEUTROPHILS % 63.1 % (36.0-66.0); PLATELET COUNT, AUTOMATED 170 10^3/uL (150-450); RED BLOOD COUNT 4.35 10^6/uL (4.00-5.40); WHITE BLOOD COUNT 5.8 10^3/uL (4.0-10.0)
[2023-01-01 06:42] LABS: BLOOD UREA NITROGEN 20 MG/DL (9-23); CALCIUM LEVEL 7.9 MG/DL (8.3-10.6); CARBON DIOXIDE LEVEL 29 MMOL/L (20-31); CHLORIDE LEVEL 103 MMOL/L (98-107); CREATININE FOR GFR 0.68 MG/DL (0.55-1.30); GLOMERULAR FILTRATION RATE > 60.0 (>45); GLUCOSE, FASTING 127 MG/DL (74-106); POTASSIUM SERUM 4.3 MMOL/L (3.5-5.1); SODIUM LEVEL 138 MMOL/L (136-145)
[2023-01-01] MEDS ORDERED: CEPACOL LOZENGE PO ONE (07:00)
[2023-01-01] MEDS: DOCUSATE SODIUM 100MG CAPSULE PO SCH (09:07)
[2023-01-01] MEDS: APIXABAN 5 MG TAB (ELIQUIS) PO SCH (09:07)
[2023-01-01] MEDS: ROSUVASTATIN 10 MG TAB (CRESTOR) PO SCH (09:07)
[2023-01-01 13:17] VITALS: BP 134/82
== END 2023-01-01 14:23 | DRG 309 ==
LOC: M ED 10:16 → M ED INP 14:39 → M PCU 22:04 → M MSPAV 12-31 18:56
PROVIDERS: ADMIT Internal Medicine; ATTEND General Practice
DX: I48.0 Paroxysmal atrial fibrillation (principal); Z68.41 Body mass index [BMI] 40.0-44.9, adult; R45.851 Suicidal ideations; M19.90 Unspecified osteoarthritis, unspecified site; M54.9 Dorsalgia, unspecified; G89.29 Other chronic pain; F20.9 Schizophrenia, unspecified; F32.A Depression, unspecified; F41.9 Anxiety disorder, unspecified; E66.9 Obesity, unspecified; Z91.190 Patient's noncompliance with other medical treatment and regimen due to financial hardship; Z79.899 Other long term (current) drug therapy; Z88.1 Allergy status to other antibiotic agents; Z20.822 Contact with and (suspected) exposure to COVID-19

== ENCOUNTER → 2023-01-25 | Outpatient (REF) | payer MEDICARE, MEDICAID ==
[~2023-01-25] MED LIST changes: +AZIT500T5 PO; +CRES10TA PO; +FURO40TA2 PO; +INVE234I IM; +LOPR1TAB7 PO; +METO100T5 PO; +ROSU10TA6 PO; +SERT50TA29 PO
== END ==
LOC: M LAB REF 11:36
PROVIDERS: ATTEND Physician Assistant Medical
DX: B34.9 Viral infection, unspecified (principal)

== ENCOUNTER 2023-01-26 17:41 | Inpatient (IN) | payer MEDICARE, MEDICAID ==
[~2023-01-26] VITALS: Ht 167.6 cm; Wt 126.7 kg
[~2023-01-26 17:41] MED LIST changes: -AZIT500T5 PO; -METO100T5 PO; -ROSU10TA6 PO
[2023-01-26] MEDS ORDERED: AZIT500T5 PO (18:21)
[2023-01-26 18:37] LABS: BASO % 0.1 % (0.0-1.0); EOS % 0.4 % (0.0-3.0); HEMOGLOBIN 11.9 g/dl (12.0-15.5); LYMPH # 0.7 10^3/uL (1.5-5.0); LYMPH % 9.9 % (24.0-44.0); MEAN CORPUSCULAR HEMOGLOBIN 29.8 pg (27.0-33.0); MEAN CORPUSCULAR HGB CONC 32.2 g/dl (32.0-36.5); MEAN CORPUSCULAR VOLUME 92.7 fl (80.0-96.0); MONO # 0.6 10^3/uL (0.0-0.8); NEUTROPHILS # 5.4 10^3/uL (1.5-8.5); NEUTROPHILS % 80.3 % (36.0-66.0); PLATELET COUNT, AUTOMATED 188 10^3/uL (150-450); RED BLOOD COUNT 3.99 10^6/uL (4.00-5.40); WHITE BLOOD COUNT 6.8 10^3/uL (4.0-10.0)
[2023-01-26 18:45] LABS: BLOOD UREA NITROGEN 15 MG/DL (9-23); CALCIUM LEVEL 8.1 MG/DL (8.3-10.6); CARBON DIOXIDE LEVEL 28 MMOL/L (20-31); CHLORIDE LEVEL 102 MMOL/L (98-107); CK-MB VALUE MASS < 1.0 NG/ML (<3.6); CPK CREATINE PHOSPHOKINASE 46 U/L (34-145); GLOMERULAR FILTRATION RATE > 60.0 (>45); GLUCOSE, FASTING 118 MG/DL (74-106); MB/CK RELATIVE INDEX 2.17 (< OR =4); POTASSIUM SERUM 4.2 MMOL/L (3.5-5.1); SODIUM LEVEL 136 MMOL/L (136-145)
[2023-01-26 18:46] LABS: FREE T4 0.98 NG/DL (0.89-1.76)
[2023-01-26 18:52] LABS: INR 1.07; PROTHROMBIN TIME 14.1 SECONDS (12.5-14.5)
[2023-01-26] MEDS: METOPROLOL 5 MG/5 ML VIAL IV SCH ×3 (18:52→19:56)
[2023-01-26 18:53] LABS: PARTIAL THROMBOPLASTIN TIME 26.9 SECONDS (24.8-34.2)
[2023-01-26] MEDS ORDERED: ISOVUE-370 76% 100ML VIAL As Ordered ONE (19:23)
[2023-01-26 20:44] LABS: CK-MB VALUE MASS < 1.0 NG/ML (<3.6)
[2023-01-26 20:50] LABS: CPK CREATINE PHOSPHOKINASE 45 U/L (34-145); MB/CK RELATIVE INDEX 2.22 (< OR =4)
[2023-01-26] MEDS ORDERED: dexAMETHasone 20MG/5ML VIAL IV SCH (21:00)
[2023-01-26] MEDS ORDERED: ELIQ5TAB PO (21:02)
[2023-01-26] MEDS ORDERED: METO100T5 PO (21:02)
[2023-01-26] MEDS ORDERED: ROSU10TA6 PO (21:02)
[2023-01-26] MEDS ORDERED: INVE234I IM (21:13)
[2023-01-26] MEDS ORDERED: HOME MED LIST COMPLETE! XX SCH (21:15)
[2023-01-26] MEDS ORDERED: ALBUTEROL SULFATE 2.5MG/0.5ML INH NEB SOLN NEB PRN (21:55)
[2023-01-26] MEDS ORDERED: IPRATROPIUM 0.5MG/ALBUTEROL 2.5MG INH SOL UD 3ML (DUONEB) NEB ONE (21:55)
[2023-01-26] MEDS ORDERED: DEXTROSE 50% 50ML SYRINGE IV PRN (21:55)
[2023-01-26] MEDS ORDERED: GLUCOSE 4GM CHEW TABLET PO PRN (21:55)
[2023-01-26] MEDS ORDERED: GLUCAGON INJ 1MG VIAL SC PRN (21:55)
[2023-01-26 22:11] LABS: ALBUMIN 3.2 G/DL (3.2-5.2); ALKALINE PHOSPHATASE 71 U/L (46-116); ALT/SGPT 22 U/L (7.0-40); AST/SGOT 16 U/L (<34); BILIRUBIN,DIRECT 0.7 MG/DL (<0.4); BILIRUBIN,TOTAL 1.5 MG/DL (0.3-1.2); TOTAL PROTEIN 6.6 G/DL (5.7-8.2)
[2023-01-26 22:19] LABS: ABG BASE EXCESS 1.8 (-2.0-2.0); ABG HCO3 26.1 MMOL/L (22.0-26.0); ABG O2 SATURATION 94.1 % (95.0-99.0); ABG PARTIAL PRESSURE CO2 39.7 mmHg (35.0-45.0); ABG PARTIAL PRESSURE O2 70.5 mmHg (75.0-100.0); ABG TOTAL CO2 27.3 MMOL/L (23.0-31.0); ABG pH (ARTERIAL) 7.436 UNITS (7.350-7.450)
[2023-01-26] MEDS ORDERED: REMDESIVIR 200 MG in NS 250 ML IV ONE (23:30)
[2023-01-27] VITALS (27 sets, daily range): BP systolic 108–132; BP diastolic 58–77; TEMP 96.8–97.9; O2SAT 92–98
[2023-01-27] MEDS ORDERED: ENOXAPARIN 120MG/0.8ML SYRINGE SC SCH
[2023-01-27] MEDS: DIGOXIN INJ 0.5 MG/2 ML AMP IV SCH ×2 (00:44→05:38)
[2023-01-27] MEDS: METOPROLOL TART 50 MG TAB PO SCH ×2 (00:45→08:24)
[2023-01-27] MEDS: dexAMETHasone 20MG/5ML VIAL IV SCH ×2 (00:45→20:41)
[2023-01-27] MEDS: IPRATROPIUM 0.5MG/ALBUTEROL 2.5MG INH SOL UD 3ML (DUONEB) NEB SCH ×4 (02:01→20:19)
[2023-01-27 05:57] LABS: BASO % 0.2 % (0.0-1.0); HEMATOCRIT 37.1 % (36.0-47.0); HEMOGLOBIN 11.7 g/dl (12.0-15.5); LYMPH # 0.4 10^3/uL (1.5-5.0); LYMPH % 8.1 % (24.0-44.0); MEAN CORPUSCULAR HEMOGLOBIN 29.5 pg (27.0-33.0); MEAN CORPUSCULAR HGB CONC 31.5 g/dl (32.0-36.5); MEAN CORPUSCULAR VOLUME 93.7 fl (80.0-96.0); MONO # 0.2 10^3/uL (0.0-0.8); MONO % 3.5 % (2.0-8.0); NEUTROPHILS # 4.2 10^3/uL (1.5-8.5); NEUTROPHILS % 87.8 % (36.0-66.0); PLATELET COUNT, AUTOMATED 159 10^3/uL (150-450); RED BLOOD COUNT 3.96 10^6/uL (4.00-5.40); WHITE BLOOD COUNT 4.8 10^3/uL (4.0-10.0)
[2023-01-27 06:09] LABS: D-DIMER QUANT 1013.45 ng/ml (<500)
[2023-01-27 06:27] LABS: LDH LACTATE DEHYDROGENASE 159 U/L (120-246)
[2023-01-27 06:28] LABS: FERRITIN 89.8 NG/ML (7.3-270.7)
[2023-01-27 06:32] LABS: PROCALCITONIN 0.08 ng/ml
[2023-01-27 06:36] LABS: ALBUMIN 3.1 G/DL (3.2-5.2); ALKALINE PHOSPHATASE 64 U/L (46-116); ALT/SGPT 22 U/L (7.0-40); AST/SGOT 12 U/L (<34); BILIRUBIN,TOTAL 1.5 MG/DL (0.3-1.2); BLOOD UREA NITROGEN 11 MG/DL (9-23); CALCIUM LEVEL 8.4 MG/DL (8.3-10.6); CARBON DIOXIDE LEVEL 26 MMOL/L (20-31); CHLORIDE LEVEL 100 MMOL/L (98-107); CREATININE FOR GFR 0.55 MG/DL (0.55-1.30); GLOMERULAR FILTRATION RATE > 60.0 (>45); GLUCOSE, FASTING 165 MG/DL (74-106); MAGNESIUM LEVEL 1.8 MG/DL (1.8-2.4); POTASSIUM SERUM 4.1 MMOL/L (3.5-5.1); SODIUM LEVEL 136 MMOL/L (136-145); TOTAL PROTEIN 6.1 G/DL (5.7-8.2)
[2023-01-27] MEDS: INSULIN LISPRO (NovoLOG) PER UNIT SC SCH ×4 (08:24→20:55)
[2023-01-27] MEDS: APIXABAN 5 MG TAB (ELIQUIS) PO SCH ×2 (13:49→20:41)
[2023-01-27] MEDS: METOPROLOL TARTRATE 100MG TAB PO SCH (20:24)
[2023-01-27] MEDS: REMDESIVIR 100 MG in NS 250 ML IV SCH (20:42)
[2023-01-27] MEDS: ACETAMINOPHEN TAB 650MG DOSE (2X325MG) PO PRN (20:42)
[2023-01-27] MEDS ORDERED: dexAMETHasone 20MG/5ML VIAL IV SCH (21:00)
[2023-01-28] VITALS (13 sets, daily range): BP systolic 111–134; BP diastolic 64–83; TEMP 96.3–97.8; O2SAT 92–97
[2023-01-28] MEDS: IPRATROPIUM 0.5MG/ALBUTEROL 2.5MG INH SOL UD 3ML (DUONEB) NEB SCH ×4 (01:40→19:46)
[2023-01-28 06:11] LABS: HEMATOCRIT 37.1 % (36.0-47.0); HEMOGLOBIN 11.3 g/dl (12.0-15.5); LYMPH # 0.4 10^3/uL (1.5-5.0); LYMPH % 9.5 % (24.0-44.0); MEAN CORPUSCULAR HGB CONC 30.5 g/dl (32.0-36.5); MEAN CORPUSCULAR VOLUME 95.1 fl (80.0-96.0); MONO # 0.2 10^3/uL (0.0-0.8); MONO % 4.5 % (2.0-8.0); NEUTROPHILS # 3.4 10^3/uL (1.5-8.5); NEUTROPHILS % 85.3 % (36.0-66.0); PLATELET COUNT, AUTOMATED 155 10^3/uL (150-450)
[2023-01-28 06:33] LABS: ALKALINE PHOSPHATASE 58 U/L (46-116); ALT/SGPT 17 U/L (7.0-40); AST/SGOT < 8 U/L (<34); BILIRUBIN,DIRECT 0.4 MG/DL (<0.4); BILIRUBIN,TOTAL 0.8 MG/DL (0.3-1.2); BLOOD UREA NITROGEN 20 MG/DL (9-23); CALCIUM LEVEL 8.2 MG/DL (8.3-10.6); CARBON DIOXIDE LEVEL 27 MMOL/L (20-31); CHLORIDE LEVEL 103 MMOL/L (98-107); CREATININE FOR GFR 0.61 MG/DL (0.55-1.30); GLOMERULAR FILTRATION RATE > 60.0 (>45); GLUCOSE, FASTING 199 MG/DL (74-106); POTASSIUM SERUM 4.5 MMOL/L (3.5-5.1); SODIUM LEVEL 139 MMOL/L (136-145)
[2023-01-28] MEDS: APIXABAN 5 MG TAB (ELIQUIS) PO SCH (07:52)
[2023-01-28] MEDS: INSULIN LISPRO (NovoLOG) PER UNIT SC SCH ×4 (07:53→21:00)
[2023-01-28] MEDS: METOPROLOL TARTRATE 100MG TAB PO SCH ×2 (07:53→21:12)
[2023-01-28 18:34] LABS: HEMATOCRIT 39.7 % (36.0-47.0); HEMOGLOBIN 12.1 g/dl (12.0-15.5)
[2023-01-28] MEDS: dexAMETHasone 20MG/5ML VIAL IV SCH (21:04)
[2023-01-28] MEDS: REMDESIVIR 100 MG in NS 250 ML IV SCH (21:12)
[2023-01-29 00:49] LABS: HEMATOCRIT 36.4 % (36.0-47.0); HEMOGLOBIN 11.5 g/dl (12.0-15.5)
[2023-01-29] MEDS: ACETAMINOPHEN TAB 650MG DOSE (2X325MG) PO PRN ×2 (01:03→18:57)
[2023-01-29] MEDS: IPRATROPIUM 0.5MG/ALBUTEROL 2.5MG INH SOL UD 3ML (DUONEB) NEB SCH ×2 (01:07→07:15)
[2023-01-29 02:05] VITALS: O2SAT 98
[2023-01-29 03:35] VITALS: BP 134/77; TEMP 97.1; O2SAT 98
[2023-01-29 05:12] LABS: BASO % 0.2 % (0.0-1.0); HEMOGLOBIN 11.5 g/dl (12.0-15.5); LYMPH # 0.6 10^3/uL (1.5-5.0); LYMPH % 8.9 % (24.0-44.0); MEAN CORPUSCULAR HEMOGLOBIN 29.3 pg (27.0-33.0); MEAN CORPUSCULAR HGB CONC 31.1 g/dl (32.0-36.5); MEAN CORPUSCULAR VOLUME 94.4 fl (80.0-96.0); MONO # 0.2 10^3/uL (0.0-0.8); MONO % 2.9 % (2.0-8.0); NEUTROPHILS # 5.4 10^3/uL (1.5-8.5); NEUTROPHILS % 87.5 % (36.0-66.0); PLATELET COUNT, AUTOMATED 173 10^3/uL (150-450); RED BLOOD COUNT 3.92 10^6/uL (4.00-5.40); WHITE BLOOD COUNT 6.2 10^3/uL (4.0-10.0)
[2023-01-29 05:30] LABS: BLOOD UREA NITROGEN 22 MG/DL (9-23); CALCIUM LEVEL 8.1 MG/DL (8.3-10.6); CARBON DIOXIDE LEVEL 28 MMOL/L (20-31); CHLORIDE LEVEL 98 MMOL/L (98-107); CREATININE FOR GFR 0.53 MG/DL (0.55-1.30); GLOMERULAR FILTRATION RATE > 60.0 (>45); GLUCOSE, FASTING 205 MG/DL (74-106); POTASSIUM SERUM 4.6 MMOL/L (3.5-5.1); SODIUM LEVEL 135 MMOL/L (136-145)
[2023-01-29 07:53] VITALS: BP 139/85; TEMP 97.4; O2SAT 96
[2023-01-29] MEDS: INSULIN LISPRO (NovoLOG) PER UNIT SC SCH ×4 (08:58→21:00)
[2023-01-29] MEDS: METOPROLOL TARTRATE 100MG TAB PO SCH ×2 (08:58→22:08)
[2023-01-29] MEDS: APIXABAN 5 MG TAB (ELIQUIS) PO SCH ×2 (08:59→21:00)
[2023-01-29] MEDS: VANCOMYCIN HCL 1,000 MG, VIAL MATE ADAPTER 1 EACH in D5W 250 ML IV SCH ×2 (10:37→12:05)
[2023-01-29 11:01] LABS: PROCALCITONIN 0.04 ng/ml
[2023-01-29 11:49] LABS: C REACTIVE PROTEIN QUANTITATIV 2.7 MG/DL (<1.0)
[2023-01-29 16:12] VITALS: BP 161/88; TEMP 98.4; O2SAT 93
[2023-01-29 19:45] VITALS: BP 125/76; TEMP 96.4; O2SAT 94
[2023-01-29] MEDS: VANCOMYCIN HCL 750 MG, VIAL MATE ADAPTER 1 EACH in D5W 250 ML IV SCH (20:25)
[2023-01-29] MEDS ORDERED: dexAMETHasone 20MG/5ML VIAL IV SCH (21:00)
[2023-01-29] MEDS: VANCOMYCIN HCL 500 MG in D5W MINI-BAG PLUS 100 ML IV SCH (22:06)
[2023-01-29] MEDS ORDERED: IBUPROFEN 600MG TAB PO ONE (22:20)
[2023-01-29] MEDS ORDERED: CEPACOL LOZENGE PO PRN (22:40)
[2023-01-29] MEDS: REMDESIVIR 100 MG in NS 250 ML IV SCH (23:25)
[2023-01-29 23:43] VITALS: BP 144/90; TEMP 96.5; O2SAT 94
[2023-01-30 03:36] VITALS: BP 139/98; TEMP 96.6; O2SAT 97
[2023-01-30 07:18] LABS: HEMATOCRIT 41.2 % (36.0-47.0); HEMOGLOBIN 12.9 g/dl (12.0-15.5); LYMPH # 0.9 10^3/uL (1.5-5.0); LYMPH % 16.5 % (24.0-44.0); MEAN CORPUSCULAR HEMOGLOBIN 29.3 pg (27.0-33.0); MEAN CORPUSCULAR HGB CONC 31.3 g/dl (32.0-36.5); MEAN CORPUSCULAR VOLUME 93.4 fl (80.0-96.0); MONO # 0.3 10^3/uL (0.0-0.8); MONO % 5.5 % (2.0-8.0); NEUTROPHILS # 4.2 10^3/uL (1.5-8.5); NEUTROPHILS % 77.5 % (36.0-66.0); PLATELET COUNT, AUTOMATED 186 10^3/uL (150-450); RED BLOOD COUNT 4.41 10^6/uL (4.00-5.40); WHITE BLOOD COUNT 5.5 10^3/uL (4.0-10.0)
[2023-01-30 07:39] LABS: BLOOD UREA NITROGEN 23 MG/DL (9-23); CALCIUM LEVEL 8.4 MG/DL (8.3-10.6); CARBON DIOXIDE LEVEL 30 MMOL/L (20-31); CHLORIDE LEVEL 98 MMOL/L (98-107); CREATININE FOR GFR 0.64 MG/DL (0.55-1.30); GLOMERULAR FILTRATION RATE > 60.0 (>45); GLUCOSE, FASTING 211 MG/DL (74-106); POTASSIUM SERUM 4.8 MMOL/L (3.5-5.1); SODIUM LEVEL 136 MMOL/L (136-145)
[2023-01-30 08:00] VITALS: BP 161/86; TEMP 97.3; O2SAT 96
[2023-01-30] MEDS: INSULIN LISPRO (NovoLOG) PER UNIT SC SCH ×4 (08:14→21:00)
[2023-01-30] MEDS: METOPROLOL TARTRATE 100MG TAB PO SCH ×2 (08:15→22:02)
[2023-01-30] MEDS: VANCOMYCIN HCL 750 MG, VIAL MATE ADAPTER 1 EACH in D5W 250 ML IV SCH (08:15)
[2023-01-30] MEDS: APIXABAN 5 MG TAB (ELIQUIS) PO SCH (08:15)
[2023-01-30] MEDS: VANCOMYCIN HCL 500 MG in D5W MINI-BAG PLUS 100 ML IV SCH (08:16)
[2023-01-30] MEDS ORDERED: APIXABAN 5 MG TAB (ELIQUIS) PO SCH (09:00)
[2023-01-30 11:06] VITALS: BP 125/76; TEMP 97.1; O2SAT 97
[2023-01-30] MEDS: ACETAMINOPHEN TAB 650MG DOSE (2X325MG) PO PRN (12:25)
[2023-01-30 20:02] VITALS: BP 132/82; TEMP 97.4; O2SAT 98
[2023-01-30 22:00] VITALS: TEMP 97.5
[2023-01-30] MEDS: REMDESIVIR 100 MG in NS 250 ML IV SCH (22:01)
[2023-01-31] MEDS: ACETAMINOPHEN TAB 650MG DOSE (2X325MG) PO PRN ×2 (01:27→06:38)
[2023-01-31 04:06] VITALS: BP 157/79; TEMP 97.9; O2SAT 97
[2023-01-31 05:41] LABS: HEMATOCRIT 41.9 % (36.0-47.0); HEMOGLOBIN 13.4 g/dl (12.0-15.5); LYMPH # 0.8 10^3/uL (1.5-5.0); LYMPH % 14.6 % (24.0-44.0); MEAN CORPUSCULAR HEMOGLOBIN 29.1 pg (27.0-33.0); MEAN CORPUSCULAR VOLUME 91.1 fl (80.0-96.0); MONO # 0.3 10^3/uL (0.0-0.8); MONO % 4.9 % (2.0-8.0); NEUTROPHILS # 4.4 10^3/uL (1.5-8.5); NEUTROPHILS % 80.1 % (36.0-66.0); PLATELET COUNT, AUTOMATED 213 10^3/uL (150-450); WHITE BLOOD COUNT 5.5 10^3/uL (4.0-10.0)
[2023-01-31 06:00] VITALS: TEMP 98
[2023-01-31 06:05] LABS: BLOOD UREA NITROGEN 24 MG/DL (9-23); CALCIUM LEVEL 8.5 MG/DL (8.3-10.6); CARBON DIOXIDE LEVEL 28 MMOL/L (20-31); CHLORIDE LEVEL 97 MMOL/L (98-107); CREATININE FOR GFR 0.53 MG/DL (0.55-1.30); GLOMERULAR FILTRATION RATE > 60.0 (>45); GLUCOSE, FASTING 211 MG/DL (74-106); POTASSIUM SERUM 4.5 MMOL/L (3.5-5.1); SODIUM LEVEL 134 MMOL/L (136-145)
[2023-01-31 07:20] LABS: INR 1.15; PROTHROMBIN TIME 14.4 SECONDS (12.5-14.5)
[2023-01-31 07:21] LABS: PARTIAL THROMBOPLASTIN TIME 26.7 SECONDS (24.8-34.2)
[2023-01-31 07:46] LABS: CARCINOEMBRYONIC ANTIGEN < 2.0 NG/ML (<2.5)
[2023-01-31 08:01] LABS: CA19-9 TUMOR MARKER,CARBOHYDRA 8.7 U/ML (<35.0)
[2023-01-31] MEDS: METOPROLOL TARTRATE 100MG TAB PO SCH ×2 (08:45→21:23)
[2023-01-31] MEDS: INSULIN LISPRO (NovoLOG) PER UNIT SC SCH ×4 (08:45→21:00)
[2023-01-31 11:47] VITALS: BP 158/98; TEMP 97.7; O2SAT 96
[2023-01-31 14:26] VITALS: BP 158/92
[2023-01-31 20:00] VITALS: BP 149/88; TEMP 96.5; O2SAT 95
[2023-02-01 03:45] VITALS: BP 155/89; TEMP 97.3; O2SAT 93
[2023-02-01 06:00] LABS: HEMATOCRIT 43.9 % (36.0-47.0); LYMPH # 0.9 10^3/uL (1.5-5.0); MEAN CORPUSCULAR HEMOGLOBIN 28.9 pg (27.0-33.0); MEAN CORPUSCULAR HGB CONC 31.9 g/dl (32.0-36.5); MEAN CORPUSCULAR VOLUME 90.7 fl (80.0-96.0); MONO # 0.3 10^3/uL (0.0-0.8); MONO % 4.9 % (2.0-8.0); NEUTROPHILS % 79.5 % (36.0-66.0); PLATELET COUNT, AUTOMATED 207 10^3/uL (150-450); RED BLOOD COUNT 4.84 10^6/uL (4.00-5.40); WHITE BLOOD COUNT 6.3 10^3/uL (4.0-10.0)
[2023-02-01 06:32] LABS: BLOOD UREA NITROGEN 19 MG/DL (9-23); CALCIUM LEVEL 8.7 MG/DL (8.3-10.6); CARBON DIOXIDE LEVEL 32 MMOL/L (20-31); CHLORIDE LEVEL 95 MMOL/L (98-107); GLOMERULAR FILTRATION RATE > 60.0 (>45); GLUCOSE, FASTING 203 MG/DL (74-106); POTASSIUM SERUM 4.7 MMOL/L (3.5-5.1); SODIUM LEVEL 135 MMOL/L (136-145)
[2023-02-01] MEDS ORDERED: D5W/0.45% SODIUM CHLORIDE 1,000 ML IV SCH (07:00)
[2023-02-01 08:26] VITALS: BP 152/70; TEMP 97.4; O2SAT 94
[2023-02-01] MEDS: INSULIN LISPRO (NovoLOG) PER UNIT SC SCH ×2 (10:25→13:38)
[2023-02-01 10:28] VITALS: BP 136/84
[2023-02-01] MEDS: METOPROLOL TARTRATE 100MG TAB PO SCH (10:28)
[2023-02-01 11:53] VITALS: BP 157/78; TEMP 97.5; O2SAT 94
[2023-02-01] MEDS ORDERED: METO100T5 PO (13:58)
[2023-02-01] MEDS ORDERED: ROSU10TA6 PO (13:59)
[2023-02-01] MEDS ORDERED: ELIQ5TAB PO (13:59)
== END 2023-02-01 16:09 | disposition home or self-care (01) | DRG 177 ==
LOC: M ED 17:41 → EDBD 17:41 → M ED INP 20:56 → M PCU 01-27 03:55
PROVIDERS: ADMIT Internal Medicine; ATTEND General Practice
DX: U07.1 COVID-19 (principal); J96.01 Acute respiratory failure with hypoxia; J12.82 Pneumonia due to coronavirus disease 2019; Z68.42 Body mass index [BMI] 45.0-49.9, adult; E87.1 Hypo-osmolality and hyponatremia; R31.9 Hematuria, unspecified; R73.9 Hyperglycemia, unspecified; K42.9 Umbilical hernia without obstruction or gangrene; F20.9 Schizophrenia, unspecified; N95.0 Postmenopausal bleeding; E66.01 Morbid (severe) obesity due to excess calories; I48.91 Unspecified atrial fibrillation; Z87.891 Personal history of nicotine dependence; Z79.01 Long term (current) use of anticoagulants; Z79.899 Other long term (current) drug therapy; Z88.1 Allergy status to other antibiotic agents

== ENCOUNTER 2024-06-05 08:38 | Inpatient (IN) | payer MEDICARE, MEDICAID ==
[2024-06-05] VITALS (9 sets, daily range): BP systolic 90–152; BP diastolic 63–94; TEMP 96.8–98.5; O2SAT 91–95
[~2024-06-05] VITALS: Ht 167.6 cm; Wt 136.4 kg
[~2024-06-05 08:38] MED LIST changes: -ARIP1TAB43; +ARIP20TA51; +AZIT500T5 PO; +MECL-209 PO; -MECL1TAB31 PO; +METO100T5 PO; -ROSU10TA6; +ROSU10TA61; +ROSU10TA61 PO
[2024-06-05 09:46] LABS: INR 1.2; PROTHROMBIN TIME 15.5 SECONDS (12.5-14.5)
[2024-06-05 09:51] LABS: BASO % 0.4 % (0.0-1.0); EOS % 0.6 % (0.0-3.0); HEMATOCRIT 46.4 % (36.0-47.0); HEMOGLOBIN 14.7 g/dl (12.0-15.5); LYMPH % 19.1 % (24.0-44.0); MEAN CORPUSCULAR HEMOGLOBIN 29.3 pg (27.0-33.0); MEAN CORPUSCULAR HGB CONC 31.7 g/dl (32.0-36.5); MEAN CORPUSCULAR VOLUME 92.6 fl (80.0-96.0); MONO # 0.5 10^3/uL (0.0-0.8); MONO % 10.2 % (2.0-8.0); NEUTROPHILS # 3.7 10^3/uL (1.5-8.5); NEUTROPHILS % 69.3 % (36.0-66.0); PLATELET COUNT, AUTOMATED 198 10^3/uL (150-450); RED BLOOD COUNT 5.01 10^6/uL (4.00-5.40); WHITE BLOOD COUNT 5.3 10^3/uL (4.0-10.0)
[2024-06-05 09:55] LABS: BLOOD UREA NITROGEN 18 MG/DL (9-23); CALCIUM LEVEL 8.4 MG/DL (8.3-10.6); CARBON DIOXIDE LEVEL 27 MMOL/L (20-31); CHLORIDE LEVEL 104 MMOL/L (98-107); CREATININE FOR GFR 0.64 MG/DL (0.55-1.30); GLOMERULAR FILTRATION RATE > 60.0 (>39); GLUCOSE, FASTING 132 MG/DL (74-106); SODIUM LEVEL 140 MMOL/L (136-145)
[2024-06-05] MEDS: FUROSEMIDE 20MG/2ML VIAL IV ONE (11:16)
[2024-06-05] MEDS ORDERED: FUROSEMIDE injection 100 MG, VIAL 2 BAG 13MM ADAPTER 1 EACH in D5W 100 ML IV SCH (11:25)
[2024-06-05] MEDS ORDERED: MIDODRINE 5 MG TAB PO ONE (11:25)
[2024-06-05] MEDS ORDERED: METOPROLOL TART 25 MG TABLET PO SCH (12:00)
[2024-06-05 12:03] LABS: CK-MB VALUE MASS < 1.0 NG/ML (<3.6)
[2024-06-05 12:05] LABS: CPK CREATINE PHOSPHOKINASE 36 U/L (34-145); MB/CK RELATIVE INDEX 2.77 (< OR =4)
[2024-06-05] MEDS ORDERED: HOME MED LIST COMPLETE! XX SCH (13:05)
[2024-06-05] MEDS: AZITHROMYCIN 250MG TABLET PO ONE (13:44)
[2024-06-05] MEDS: cefTRIAXone SOD 2 GM in DEXTROSE 5% (D5W) ADV/MINI-BAG 50 ML IV SCH (13:44)
[2024-06-05] MEDS: DIGOXIN INJ 0.5 MG/2 ML AMP IV STA (13:44)
[2024-06-05] MEDS: FUROSEMIDE 40MG/4ML VIAL IV SCH (15:14)
[2024-06-05] MEDS: METOPROLOL 5 MG/5 ML VIAL IV SCH (15:26)
[2024-06-05] MEDS: METOPROLOL TART 25 MG TABLET PO SCH (15:40)
[2024-06-05 18:42] LABS: BLOOD UREA NITROGEN 17 MG/DL (9-23); CALCIUM LEVEL 8.5 MG/DL (8.3-10.6); CARBON DIOXIDE LEVEL 31 MMOL/L (20-31); CHLORIDE LEVEL 100 MMOL/L (98-107); CK-MB VALUE MASS < 1.0 NG/ML (<3.6); CPK CREATINE PHOSPHOKINASE 53 U/L (34-145); CREATININE FOR GFR 0.75 MG/DL (0.55-1.30); GLOMERULAR FILTRATION RATE > 60.0 (>39); GLUCOSE, FASTING 152 MG/DL (74-106); MB/CK RELATIVE INDEX 1.88 (< OR =4); SODIUM LEVEL 142 MMOL/L (136-145)
[2024-06-05] MEDS: APIXABAN 5 MG TAB (ELIQUIS) PO SCH (21:09)
[2024-06-05] MEDS: VANICREAM MOISTURIZING SKIN CREAM 113GM TUBE TOP SCH (21:50)
[2024-06-05] MEDS: IBUPROFEN 400MG TAB PO ONE (21:50)
[2024-06-06] VITALS (9 sets, daily range): BP systolic 114–158; BP diastolic 76–94; TEMP 96.8–98.6; O2SAT 91–94
[2024-06-06] MEDS: LIDOCAINE 5% (LIDODERM) PATCH TD ONE (00:42)
[2024-06-06 05:40] LABS: BLOOD UREA NITROGEN 17 MG/DL (9-23); CALCIUM LEVEL 8.4 MG/DL (8.3-10.6); CARBON DIOXIDE LEVEL 28 MMOL/L (20-31); CHLORIDE LEVEL 104 MMOL/L (98-107); CREATININE FOR GFR 0.75 MG/DL (0.55-1.30); GLOMERULAR FILTRATION RATE > 60.0 (>39); GLUCOSE, FASTING 116 MG/DL (74-106); MAGNESIUM LEVEL 1.8 MG/DL (1.8-2.4); SODIUM LEVEL 143 MMOL/L (136-145)
[2024-06-06 07:29] LABS: BASO % 0.4 % (0.0-1.0); EOS # 0.1 10^3/uL (0.0-0.5); EOS % 1.2 % (0.0-3.0); HEMATOCRIT 46.9 % (36.0-47.0); HEMOGLOBIN 14.6 g/dl (12.0-15.5); LYMPH # 1.4 10^3/uL (1.5-5.0); MEAN CORPUSCULAR HEMOGLOBIN 28.8 pg (27.0-33.0); MEAN CORPUSCULAR HGB CONC 31.1 g/dl (32.0-36.5); MEAN CORPUSCULAR VOLUME 92.5 fl (80.0-96.0); MONO # 0.7 10^3/uL (0.0-0.8); MONO % 12.4 % (2.0-8.0); NEUTROPHILS # 3.5 10^3/uL (1.5-8.5); NEUTROPHILS % 60.8 % (36.0-66.0); PLATELET COUNT, AUTOMATED 208 10^3/uL (150-450); RED BLOOD COUNT 5.07 10^6/uL (4.00-5.40); WHITE BLOOD COUNT 5.7 10^3/uL (4.0-10.0)
[2024-06-06] MEDS: AZITHROMYCIN 250MG TABLET PO SCH (09:10)
[2024-06-06] MEDS: MAG SULF 1GM/100ML (MAG RUN) 1 GM in IV 1 EA IV ONE (11:03)
[2024-06-06] MEDS: FUROSEMIDE injection 100 MG, VIAL 2 BAG 13MM ADAPTER 1 EACH in D5W 100 ML IV SCH (13:56)
[2024-06-06] MEDS: ACETAMINOPHEN 500 MG TAB PO ONE (18:14)
[2024-06-06] MEDS: METOPROLOL TART 12.5 MG PER 1/2 TAB PO SCH (21:09)
[2024-06-07 01:03] VITALS: BP 112/62; TEMP 97.6; O2SAT 87
[2024-06-07 04:00] VITALS: BP_SYST 112; BP_SYST 129; BP_DIAS 62; BP_DIAS 72; TEMP 97.2; O2SAT 91
[2024-06-07 05:51] LABS: BASO % 0.6 % (0.0-1.0); EOS # 0.1 10^3/uL (0.0-0.5); EOS % 1.5 % (0.0-3.0); HEMATOCRIT 49.8 % (36.0-47.0); HEMOGLOBIN 15.5 g/dl (12.0-15.5); LYMPH # 1.3 10^3/uL (1.5-5.0); LYMPH % 24.8 % (24.0-44.0); MEAN CORPUSCULAR HEMOGLOBIN 28.8 pg (27.0-33.0); MEAN CORPUSCULAR HGB CONC 31.1 g/dl (32.0-36.5); MEAN CORPUSCULAR VOLUME 92.6 fl (80.0-96.0); MONO # 0.7 10^3/uL (0.0-0.8); MONO % 12.6 % (2.0-8.0); NEUTROPHILS # 3.1 10^3/uL (1.5-8.5); NEUTROPHILS % 60.1 % (36.0-66.0); PLATELET COUNT, AUTOMATED 164 10^3/uL (150-450); RED BLOOD COUNT 5.38 10^6/uL (4.00-5.40); WHITE BLOOD COUNT 5.2 10^3/uL (4.0-10.0)
[2024-06-07 06:02] LABS: HEMOGLOBIN A1c 8.4 % (4.0-6.0)
[2024-06-07 06:24] LABS: BLOOD UREA NITROGEN 17 MG/DL (9-23); CALCIUM LEVEL 8.6 MG/DL (8.3-10.6); CARBON DIOXIDE LEVEL 34 MMOL/L (20-31); CHLORIDE LEVEL 97 MMOL/L (98-107); CHOLESTEROL LEVEL 95 MG/DL (<200); CHOLESTEROL RISK RATIO 4.39 (<5); CREATININE FOR GFR 0.66 MG/DL (0.55-1.30); GLOMERULAR FILTRATION RATE > 60.0 (>39); GLUCOSE, FASTING 128 MG/DL (74-106); HDL CHOLESTEROL 21.6 MG/DL (>40); LDL CHOLESTEROL 57.6 MG/DL (<100); MAGNESIUM LEVEL 1.8 MG/DL (1.8-2.4); NON-HDL-C 73.4 MG/DL; POTASSIUM SERUM 3.5 MMOL/L (3.5-5.1); SODIUM LEVEL 141 MMOL/L (136-145); TRIGLYCERIDES LEVEL 79 MG/DL (<150)
[2024-06-07 06:26] LABS: THYROID STIMULATING HORMONE 0.452 uIU/ML (0.55-4.78); THYROXINE (T4) 4.9 UG/DL (4.5-10.9)
[2024-06-07] MEDS: ACETAMINOPHEN 500 MG TAB PO PRN (06:43)
[2024-06-07] MEDS: CEFDINIR 300 MG CAP (OMNICEF) PO SCH (10:04)
[2024-06-07] MEDS ORDERED: DEXTROSE 50% 50ML SYRINGE IV PRN (11:25)
[2024-06-07] MEDS ORDERED: GLUCAGON INJ 1MG VIAL SC PRN (11:25)
[2024-06-07] MEDS ORDERED: GLUCOSE 4 GM CHEW PO PRN (11:25)
[2024-06-07 12:30] VITALS: BP 140/80; TEMP 97.3; O2SAT 93
[2024-06-07] MEDS: INSULIN LISPRO (NovoLOG) PER UNIT SC SCH ×2 (13:19→20:58)
[2024-06-07] MEDS: ASPIRIN 81MG CHEW TABLET PO ONE (13:20)
[2024-06-07] MEDS: GABAPENTIN 100 MG CAP PO ONE (16:17)
[2024-06-07 17:13] LABS: FREE THYROXINE INDEX 2.1 % (1.3-4.8); T UPTAKE 43.8 % (22.5-37.0)
[2024-06-07 20:08] VITALS: BP 140/81; TEMP 97.5; O2SAT 93
[2024-06-08 03:41] VITALS: BP 132/81; TEMP 97.7; O2SAT 91
[2024-06-08 05:15] LABS: BASO % 0.6 % (0.0-1.0); EOS # 0.1 10^3/uL (0.0-0.5); EOS % 1.8 % (0.0-3.0); HEMOGLOBIN 15.8 g/dl (12.0-15.5); LYMPH # 1.1 10^3/uL (1.5-5.0); LYMPH % 22.3 % (24.0-44.0); MEAN CORPUSCULAR HEMOGLOBIN 28.9 pg (27.0-33.0); MEAN CORPUSCULAR HGB CONC 31.6 g/dl (32.0-36.5); MEAN CORPUSCULAR VOLUME 91.4 fl (80.0-96.0); MONO # 0.7 10^3/uL (0.0-0.8); MONO % 14.3 % (2.0-8.0); NEUTROPHILS # 3.1 10^3/uL (1.5-8.5); NEUTROPHILS % 60.8 % (36.0-66.0); PLATELET COUNT, AUTOMATED 160 10^3/uL (150-450); RED BLOOD COUNT 5.47 10^6/uL (4.00-5.40); WHITE BLOOD COUNT 5.1 10^3/uL (4.0-10.0)
[2024-06-08 05:40] LABS: BLOOD UREA NITROGEN 18 MG/DL (9-23); CALCIUM LEVEL 8.8 MG/DL (8.3-10.6); CARBON DIOXIDE LEVEL 37 MMOL/L (20-31); CHLORIDE LEVEL 92 MMOL/L (98-107); CREATININE FOR GFR 0.59 MG/DL (0.55-1.30); GLOMERULAR FILTRATION RATE > 60.0 (>39); GLUCOSE, FASTING 136 MG/DL (74-106); MAGNESIUM LEVEL 1.8 MG/DL (1.8-2.4); POTASSIUM SERUM 3.2 MMOL/L (3.5-5.1); SODIUM LEVEL 138 MMOL/L (136-145)
[2024-06-08] MEDS: ASPIRIN 81MG CHEW TABLET PO SCH (09:00)
[2024-06-08] MEDS: GABAPENTIN 100 MG CAP PO SCH (09:00)
[2024-06-08 12:00] VITALS: BP 158/89; TEMP 97.7; O2SAT 91
[2024-06-08] MEDS: FLUBLOK(EGGFREE) TRIVAL(24-25) VACCINE PF 0.5ML SYRINGE 18YRS & OLDER IM.IMMUN ONE (13:52)
[2024-06-08] MEDS ORDERED: ELIQ5TAB PO (14:16)
[2024-06-08] MEDS: POTASSIUM CHLORIDE 10MEQ SR TABLET PO SCH (14:48)
[2024-06-08] MEDS ORDERED: FARX1TAB3 PO (16:43)
[2024-06-08] MEDS: SPIRONOLACTONE 25 MG TAB PO SCH (17:14)
[2024-06-08] MEDS: TORSEMIDE 20 MG TAB PO SCH (17:15)
[2024-06-08 19:55] VITALS: BP 155/88; TEMP 97.9; O2SAT 94
[2024-06-08] MEDS: METOPROLOL TART 25 MG TABLET PO SCH (20:46)
[2024-06-08] MEDS: ATORVASTATIN 20 MG TAB PO SCH (20:46)
[2024-06-09 04:00] VITALS: BP 137/95; TEMP 97.5; O2SAT 94
[2024-06-09 07:44] LABS: BASO % 0.4 % (0.0-1.0); EOS # 0.1 10^3/uL (0.0-0.5); EOS % 1.9 % (0.0-3.0); HEMOGLOBIN 15.4 g/dl (12.0-15.5); LYMPH # 1.4 10^3/uL (1.5-5.0); MEAN CORPUSCULAR HEMOGLOBIN 28.7 pg (27.0-33.0); MEAN CORPUSCULAR HGB CONC 31.4 g/dl (32.0-36.5); MEAN CORPUSCULAR VOLUME 91.2 fl (80.0-96.0); MONO # 0.7 10^3/uL (0.0-0.8); MONO % 13.5 % (2.0-8.0); NEUTROPHILS # 2.7 10^3/uL (1.5-8.5); PLATELET COUNT, AUTOMATED 176 10^3/uL (150-450); RED BLOOD COUNT 5.37 10^6/uL (4.00-5.40); WHITE BLOOD COUNT 4.8 10^3/uL (4.0-10.0)
[2024-06-09 08:19] LABS: BLOOD UREA NITROGEN 21 MG/DL (9-23); CARBON DIOXIDE LEVEL 36 MMOL/L (20-31); CHLORIDE LEVEL 95 MMOL/L (98-107); CREATININE FOR GFR 0.67 MG/DL (0.55-1.30); GLOMERULAR FILTRATION RATE > 60.0 (>39); GLUCOSE, FASTING 137 MG/DL (74-106); MAGNESIUM LEVEL 1.8 MG/DL (1.8-2.4); POTASSIUM SERUM 4.2 MMOL/L (3.5-5.1); SODIUM LEVEL 138 MMOL/L (136-145)
[2024-06-09] MEDS ORDERED: POTA10CA70 PO (11:10)
[2024-06-09] MEDS ORDERED: MAGN400T2 PO (11:10)
[2024-06-09] MEDS ORDERED: METF-877 PO (11:10)
[2024-06-09] MEDS ORDERED: SPIR50TA4 PO (11:10)
[2024-06-09] MEDS ORDERED: CEFD300CAP PO (11:10)
[2024-06-09] MEDS ORDERED: ATOR40TA75 PO (11:10)
[2024-06-09] MEDS ORDERED: TORS20TA2 PO (11:10)
[2024-06-09] MEDS ORDERED: GABA-1171 PO (11:10)
[2024-06-09] MEDS ORDERED: METO1TAB87 PO (11:10)
[2024-06-09 12:00] VITALS: BP 132/80; TEMP 97.9; O2SAT 95
[2024-06-09 16:29] VITALS: BP 125/65
[2024-06-10 16:57] LABS: URINE STREP PNEUMONIAE ANTIGEN NOT DETECTED (NOT DETECT)
== END 2024-06-09 18:09 | disposition home health service (06) | DRG 291 ==
LOC: M ED 08:38 → EDBD 08:38 → M ED INP 11:22 → M ICU 13:03 → M MSPAV 06-07 00:55
PROVIDERS: ADMIT General Practice; ATTEND Internal Medicine
PROC: B246ZZZ Ultrasonography of Right and Left Heart (ICD-10-PCS; principal; 2024-06-05)
DX: I11.0 Hypertensive heart disease with heart failure (principal); I50.31 Acute diastolic (congestive) heart failure; J18.9 Pneumonia, unspecified organism; I48.21 Permanent atrial fibrillation; Z68.41 Body mass index [BMI] 40.0-44.9, adult; J98.11 Atelectasis; E66.2 Morbid (severe) obesity with alveolar hypoventilation; E87.3 Alkalosis; E11.42 Type 2 diabetes mellitus with diabetic polyneuropathy; I27.20 Pulmonary hypertension, unspecified; R33.9 Retention of urine, unspecified; E11.51 Type 2 diabetes mellitus with diabetic peripheral angiopathy without gangrene; R00.1 Bradycardia, unspecified; M79.672 Pain in left foot; F25.0 Schizoaffective disorder, bipolar type; E78.5 Hyperlipidemia, unspecified; M54.9 Dorsalgia, unspecified; G89.29 Other chronic pain; M19.90 Unspecified osteoarthritis, unspecified site; F32.A Depression, unspecified; F41.9 Anxiety disorder, unspecified; I73.9 Peripheral vascular disease, unspecified; Z86.16 Personal history of COVID-19; Z87.891 Personal history of nicotine dependence; Z88.1 Allergy status to other antibiotic agents; Z91.119 Patient's noncompliance with dietary regimen due to unspecified reason; Z79.899 Other long term (current) drug therapy

== ENCOUNTER 2024-07-01 08:52 | Emergency (ER) | payer MEDICARE, MEDICAID ==
[~2024-07-01 08:52] MED LIST changes: +ATOR40TA75 PO; +CEFD300CAP PO; +FARX1TAB3 PO; +GABA-1171 PO; +MAGN400T2 PO; +METF-877 PO; +METO1TAB87 PO; +POTA10CA70 PO; +SPIR50TA4 PO; +TORS20TA2 PO
[2024-07-01 13:25] LABS: BASO % 0.5 % (0.0-1.0); EOS # 0.1 10^3/uL (0.0-0.5); EOS % 0.8 % (0.0-3.0); HEMATOCRIT 52.8 % (36.0-47.0); HEMOGLOBIN 17.3 g/dl (12.0-15.5); LYMPH # 1.7 10^3/uL (1.5-5.0); MEAN CORPUSCULAR HEMOGLOBIN 28.7 pg (27.0-33.0); MEAN CORPUSCULAR HGB CONC 32.8 g/dl (32.0-36.5); MEAN CORPUSCULAR VOLUME 87.7 fl (80.0-96.0); MONO # 0.8 10^3/uL (0.0-0.8); MONO % 10.5 % (2.0-8.0); NEUTROPHILS # 5.2 10^3/uL (1.5-8.5); NEUTROPHILS % 65.9 % (36.0-66.0); PLATELET COUNT, AUTOMATED 156 10^3/uL (150-450); RED BLOOD COUNT 6.02 10^6/uL (4.00-5.40); WHITE BLOOD COUNT 7.9 10^3/uL (4.0-10.0)
[2024-07-01 13:50] LABS: CREATININE FOR GFR 1.17 MG/DL (0.55-1.30); GLOMERULAR FILTRATION RATE 48.5 (>39); POTASSIUM SERUM 4.7 MMOL/L (3.5-5.1)
[2024-07-01] MEDS: NS 500 ML IV ONE (15:57)
[2024-07-01] MEDS ORDERED: NYST100085 TOP (16:01)
[2024-07-01 16:31] LABS: KETONE, URINE AUTO RFX NEGATIVE (NEGATIVE); LEUKOCYTE ESTERASE UR AUTO RFX NEGATIVE (NEGATIVE); NITRITE, URINE AUTO RFX NEGATIVE (NEGATIVE); RBC, URINE AUTO RFX 2 /HPF (0-3); SQUAM EPITHELIAL CELL UR AURFX 2 /HPF (0-6); WBC, URINE AUTO RFX 3 /HPF (0-3)
[2024-07-01 17:30] VITALS: BP 138/78; TEMP 96.3; O2SAT 97
== END 2024-07-01 18:14 | disposition home or self-care (01) ==
LOC: M ED 08:52 → EDBD 08:52 → M ED 18:14
DX: M79.604 Pain in right leg (principal); M79.605 Pain in left leg; B37.31 Acute candidiasis of vulva and vagina; I48.91 Unspecified atrial fibrillation; E11.9 Type 2 diabetes mellitus without complications; Z88.8 Allergy status to other drugs, medicaments and biological substances; Z79.01 Long term (current) use of anticoagulants; Z79.2 Long term (current) use of antibiotics; Z79.84 Long term (current) use of oral hypoglycemic drugs; Z79.899 Other long term (current) drug therapy

== ENCOUNTER 2024-09-15 14:09 | Inpatient (IN) | payer MEDICARE, MEDICAID ==
[~2024-09-15] VITALS: Ht 167.6 cm; Wt 104.4 kg
[~2024-09-15 14:09] MED LIST changes: +NYST100085 TOP
[2024-09-15 16:39] LABS: BASO % 0.6 % (0.0-1.0); EOS # 0.1 10^3/uL (0.0-0.5); EOS % 1.3 % (0.0-3.0); HEMATOCRIT 42.4 % (36.0-47.0); HEMOGLOBIN 13.3 g/dl (12.0-15.5); LYMPH # 1.4 10^3/uL (1.5-5.0); LYMPH % 22.2 % (24.0-44.0); MEAN CORPUSCULAR HEMOGLOBIN 32.9 pg (27.0-33.0); MEAN CORPUSCULAR HGB CONC 31.4 g/dl (32.0-36.5); MONO # 0.6 10^3/uL (0.0-0.8); MONO % 8.6 % (2.0-8.0); NEUTROPHILS # 4.3 10^3/uL (1.5-8.5); NEUTROPHILS % 67.1 % (36.0-66.0); PLATELET COUNT, AUTOMATED 239 10^3/uL (150-450); RED BLOOD COUNT 4.04 10^6/uL (4.00-5.40); WHITE BLOOD COUNT 6.4 10^3/uL (4.0-10.0)
[2024-09-15] MEDS ORDERED: HOME MED LIST COMPLETE! XX SCH (16:45)
[2024-09-15] MEDS: METOPROLOL TART 25 MG TABLET PO ONE (16:45)
[2024-09-15 16:47] LABS: ERYTHROCYTE SEDIMENTATION RATE 31 mm/hr (0-30)
[2024-09-15 17:05] LABS: C REACTIVE PROTEIN QUANTITATIV 1.74 MG/DL (<1.0)
[2024-09-15 17:11] LABS: INR 1.12; PROTHROMBIN TIME 14.7 SECONDS (12.5-14.5)
[2024-09-15 17:12] LABS: PROCALCITONIN 0.09 ng/ml
[2024-09-15 17:20] LABS: HEPATITIS B SURFACE ANTIGEN NEGATIVE (NEGATIVE)
[2024-09-15 17:33] LABS: HIV SCREEN CENTAUR SOURCE NEGATIVE (NEGATIVE)
[2024-09-15 17:42] LABS: ALBUMIN 3.1 G/DL (3.2-5.2); ALKALINE PHOSPHATASE 92 U/L (35-104); ALT/SGPT 17 U/L (7.0-40); AST/SGOT 19 U/L (<34); BILIRUBIN,DIRECT 1.1 MG/DL (<0.4); BILIRUBIN,TOTAL 2.1 MG/DL (0.3-1.2); BLOOD UREA NITROGEN 14 MG/DL (9-23); CALCIUM LEVEL 8.8 MG/DL (8.3-10.6); CARBON DIOXIDE LEVEL 29 MMOL/L (20-31); CHLORIDE LEVEL 101 MMOL/L (98-107); CREATININE FOR GFR 0.81 MG/DL (0.55-1.30); GLOMERULAR FILTRATION RATE > 60.0 (>39); GLUCOSE, FASTING 77 MG/DL (74-106); POTASSIUM SERUM 4.1 MMOL/L (3.5-5.1); SODIUM LEVEL 140 MMOL/L (136-145); TOTAL PROTEIN 6.7 G/DL (5.7-8.2)
[2024-09-15] MEDS: VANCOMYCIN HCL 2,000 MG, VIAL MATE ADAPTER 1 EACH in NS 500 ML IV ONE (17:43)
[2024-09-15] MEDS ORDERED: MOM 30ML SUSPENSION UDC PO PRN (19:10)
[2024-09-15] MEDS ORDERED: GLUCAGON INJ 1MG VIAL SC PRN (19:10)
[2024-09-15] MEDS ORDERED: DEXTROSE 50% 50ML SYRINGE IV PRN (19:10)
[2024-09-15] MEDS ORDERED: GLUCOSE 4 GM CHEW PO PRN (19:10)
[2024-09-15 20:57] LABS: HEMOGLOBIN A1c 4.9 % (4.0-6.0)
[2024-09-15] MEDS ORDERED: INSULIN LISPRO (NovoLOG) PER UNIT SC SCH (21:00)
[2024-09-15 21:12] LABS: MAGNESIUM LEVEL 1.9 MG/DL (1.8-2.4)
[2024-09-15] MEDS: DOCUSATE SODIUM 100MG CAPSULE PO SCH (21:21)
[2024-09-15] MEDS: METOPROLOL TART 25 MG TABLET PO SCH (21:21)
[2024-09-15] MEDS: APIXABAN 5 MG TAB (ELIQUIS) PO SCH (21:21)
[2024-09-15] MEDS: ACETAMINOPHEN 325 MG TAB PO PRN (21:22)
[2024-09-15 22:22] VITALS: BP 121/82; TEMP 97; O2SAT 90
[2024-09-15 22:56] VITALS: O2SAT 90
[2024-09-16] VITALS (9 sets, daily range): BP systolic 109–138; BP diastolic 67–86; TEMP 97–97.3; O2SAT 83–95
[2024-09-16] MEDS: FUROSEMIDE 20MG/2ML VIAL IV ONE (00:52)
[2024-09-16] MEDS: MAALOX 30 ML SUSP *UDC PO PRN (01:36)
[2024-09-16] MEDS: PERCOCET 5MG/325MG TAB PO PRN (03:03)
[2024-09-16 05:25] LABS: HEMATOCRIT 47.6 % (36.0-47.0); HEMOGLOBIN 14.7 g/dl (12.0-15.5); MEAN CORPUSCULAR HEMOGLOBIN 32.7 pg (27.0-33.0); MEAN CORPUSCULAR HGB CONC 30.9 g/dl (32.0-36.5); MEAN CORPUSCULAR VOLUME 105.8 fl (80.0-96.0); PLATELET COUNT, AUTOMATED 267 10^3/uL (150-450); WHITE BLOOD COUNT 6.9 10^3/uL (4.0-10.0)
[2024-09-16 05:30] LABS: ERYTHROCYTE SEDIMENTATION RATE 61 mm/hr (0-30)
[2024-09-16 05:42] LABS: C REACTIVE PROTEIN QUANTITATIV 2.28 MG/DL (<1.0)
[2024-09-16 05:48] LABS: ALBUMIN 3.5 G/DL (3.2-5.2); ALKALINE PHOSPHATASE 103 U/L (35-104); ALT/SGPT 24 U/L (7.0-40); AST/SGOT 44 U/L (<34); BILIRUBIN,TOTAL 2.4 MG/DL (0.3-1.2); BLOOD UREA NITROGEN 15 MG/DL (9-23); CALCIUM LEVEL 9.3 MG/DL (8.3-10.6); CARBON DIOXIDE LEVEL 26 MMOL/L (20-31); CHLORIDE LEVEL 103 MMOL/L (98-107); CREATININE FOR GFR 0.79 MG/DL (0.55-1.30); GLOMERULAR FILTRATION RATE > 60.0 (>39); GLUCOSE, FASTING 100 MG/DL (74-106); POTASSIUM SERUM 4.6 MMOL/L (3.5-5.1); SODIUM LEVEL 142 MMOL/L (136-145); TOTAL PROTEIN 7.4 G/DL (5.7-8.2)
[2024-09-16] MEDS ORDERED: INSULIN LISPRO (NovoLOG) PER UNIT SC SCH (07:30)
[2024-09-16] MEDS: VANCOMYCIN HCL 1,500 MG, VIAL MATE ADAPTER 1 EACH in NS 500 ML IV SCH (09:26)
[2024-09-16] MEDS: POTASSIUM CHLORIDE 10MEQ SR TABLET PO SCH (09:27)
[2024-09-16] MEDS: FUROSEMIDE 20 MG TAB PO SCH (09:27)
[2024-09-17 04:33] VITALS: BP 112/78; TEMP 97; O2SAT 96
[2024-09-17 08:00] VITALS: BP 131/81; TEMP 97.7; O2SAT 91
[2024-09-17] MEDS: NYSTATIN 100,000 UNITS/GM TOPICAL PWD 15GM TOP PRN (10:34)
[2024-09-17 12:00] VITALS: BP 136/87; TEMP 97.3; O2SAT 95
[2024-09-17 16:00] VITALS: BP 129/72; TEMP 97.2; O2SAT 91
[2024-09-17 20:00] VITALS: BP 108/74; TEMP 97.3; O2SAT 93
[2024-09-17 23:54] VITALS: BP 127/90; TEMP 97.5; O2SAT 94
[2024-09-18 03:15] VITALS: BP 126/90; TEMP 97.2; O2SAT 95
[2024-09-18 08:00] VITALS: BP 136/93; TEMP 97; O2SAT 95
[2024-09-18] MEDS ORDERED: SENOKOT S TAB PO PRN (10:55)
[2024-09-18] MEDS ORDERED: MIRALAX *UNIT DOSE* 17GM PACKET PO PRN (10:55)
[2024-09-18] MEDS ORDERED: MOM 30ML SUSPENSION UDC PO PRN (10:55)
[2024-09-18 12:00] VITALS: BP 132/89; TEMP 97.3; O2SAT 93
[2024-09-18 12:05] LABS: BASO % 0.6 % (0.0-1.0); EOS # 0.2 10^3/uL (0.0-0.5); EOS % 2.4 % (0.0-3.0); HEMATOCRIT 41.3 % (36.0-47.0); HEMOGLOBIN 12.9 g/dl (12.0-15.5); LYMPH % 16.6 % (24.0-44.0); MEAN CORPUSCULAR HEMOGLOBIN 33.3 pg (27.0-33.0); MEAN CORPUSCULAR HGB CONC 31.2 g/dl (32.0-36.5); MEAN CORPUSCULAR VOLUME 106.7 fl (80.0-96.0); MONO # 0.6 10^3/uL (0.0-0.8); MONO % 9.2 % (2.0-8.0); NEUTROPHILS # 4.4 10^3/uL (1.5-8.5); NEUTROPHILS % 70.9 % (36.0-66.0); PLATELET COUNT, AUTOMATED 234 10^3/uL (150-450); RED BLOOD COUNT 3.87 10^6/uL (4.00-5.40); WHITE BLOOD COUNT 6.2 10^3/uL (4.0-10.0)
[2024-09-18] MEDS: LACTOBACILLUS ACIDOPHILUS CAP (BACID) PO SCH (12:22)
[2024-09-18 12:30] LABS: C REACTIVE PROTEIN QUANTITATIV 2.64 MG/DL (<1.0)
[2024-09-18 12:34] LABS: ERYTHROCYTE SEDIMENTATION RATE 42 mm/hr (0-30)
[2024-09-18 12:55] LABS: ALBUMIN 2.9 G/DL (3.2-5.2); ALKALINE PHOSPHATASE 111 U/L (35-104); ALT/SGPT 27 U/L (7.0-40); AST/SGOT 21 U/L (<34); BILIRUBIN,TOTAL 1.5 MG/DL (0.3-1.2); BLOOD UREA NITROGEN 16 MG/DL (9-23); CALCIUM LEVEL 8.3 MG/DL (8.3-10.6); CARBON DIOXIDE LEVEL 31 MMOL/L (20-31); CHLORIDE LEVEL 105 MMOL/L (98-107); CREATININE FOR GFR 0.74 MG/DL (0.55-1.30); GLOMERULAR FILTRATION RATE > 60.0 (>39); GLUCOSE, FASTING 100 MG/DL (74-106); POTASSIUM SERUM 4.5 MMOL/L (3.5-5.1); SODIUM LEVEL 143 MMOL/L (136-145); TOTAL PROTEIN 6.5 G/DL (5.7-8.2)
[2024-09-18] MEDS ORDERED: PROHANCE 279.3MG/ML 5ML VIAL As Ordered ONE (18:24)
[2024-09-18] MEDS ORDERED: PROHANCE 279.3MG/ML 15ML VIAL As Ordered ONE (18:24)
[2024-09-18 20:09] VITALS: BP 109/79; TEMP 97.5; O2SAT 93
[2024-09-19] VITALS (10 sets, daily range): BP systolic 124–145; BP diastolic 63–97; TEMP 97.2–97.5; O2SAT 69–97
[2024-09-19 04:35] LABS: BASO % 0.5 % (0.0-1.0); EOS # 0.2 10^3/uL (0.0-0.5); HEMATOCRIT 39.4 % (36.0-47.0); HEMOGLOBIN 12.2 g/dl (12.0-15.5); LYMPH # 1.2 10^3/uL (1.5-5.0); LYMPH % 20.4 % (24.0-44.0); MEAN CORPUSCULAR HEMOGLOBIN 33.2 pg (27.0-33.0); MEAN CORPUSCULAR VOLUME 107.1 fl (80.0-96.0); MONO # 0.7 10^3/uL (0.0-0.8); MONO % 11.8 % (2.0-8.0); NEUTROPHILS # 3.7 10^3/uL (1.5-8.5); NEUTROPHILS % 63.9 % (36.0-66.0); PLATELET COUNT, AUTOMATED 203 10^3/uL (150-450); RED BLOOD COUNT 3.68 10^6/uL (4.00-5.40); WHITE BLOOD COUNT 5.7 10^3/uL (4.0-10.0)
[2024-09-19 05:04] LABS: ALBUMIN 2.8 G/DL (3.2-5.2); ALKALINE PHOSPHATASE 113 U/L (35-104); ALT/SGPT 25 U/L (7.0-40); AST/SGOT 20 U/L (<34); BILIRUBIN,TOTAL 1.4 MG/DL (0.3-1.2); BLOOD UREA NITROGEN 17 MG/DL (9-23); CALCIUM LEVEL 8.3 MG/DL (8.3-10.6); CARBON DIOXIDE LEVEL 29 MMOL/L (20-31); CHLORIDE LEVEL 104 MMOL/L (98-107); CREATININE FOR GFR 0.54 MG/DL (0.55-1.30); GLOMERULAR FILTRATION RATE > 60.0 (>39); GLUCOSE, FASTING 125 MG/DL (74-106); POTASSIUM SERUM 4.3 MMOL/L (3.5-5.1); SODIUM LEVEL 141 MMOL/L (136-145); TOTAL PROTEIN 6.4 G/DL (5.7-8.2)
[2024-09-19 06:40] LABS: KETONE, URINE AUTO RFX NEGATIVE (NEGATIVE); LEUKOCYTE ESTERASE UR AUTO RFX NEGATIVE (NEGATIVE); MUCUS, URINE RFX SMALL (NEGATIVE); NITRITE, URINE AUTO RFX NEGATIVE (NEGATIVE); RBC, URINE AUTO RFX 0 /HPF (0-3); SQUAM EPITHELIAL CELL UR AURFX 2 /HPF (0-6); WBC, URINE AUTO RFX 0 /HPF (0-3)
[2024-09-19 08:29] LABS: PROCALCITONIN 0.06 ng/ml
[2024-09-19] MEDS: cefTRIAXone SOD 2 GM in DEXTROSE 5% (D5W) ADV/MINI-BAG 50 ML IV SCH (09:13)
[2024-09-19] MEDS: METOPROLOL TART 25 MG TABLET PO ONE (12:00)
[2024-09-20] VITALS (9 sets, daily range): BP systolic 122–141; BP diastolic 80–91; TEMP 97.3–97.7; O2SAT 84–97
[2024-09-20 06:09] LABS: BASO % 0.6 % (0.0-1.0); EOS # 0.2 10^3/uL (0.0-0.5); EOS % 2.9 % (0.0-3.0); HEMATOCRIT 40.6 % (36.0-47.0); HEMOGLOBIN 12.7 g/dl (12.0-15.5); LYMPH % 19.5 % (24.0-44.0); MEAN CORPUSCULAR HEMOGLOBIN 33.2 pg (27.0-33.0); MEAN CORPUSCULAR HGB CONC 31.3 g/dl (32.0-36.5); MEAN CORPUSCULAR VOLUME 106.3 fl (80.0-96.0); MONO # 0.6 10^3/uL (0.0-0.8); MONO % 12.1 % (2.0-8.0); NEUTROPHILS # 3.3 10^3/uL (1.5-8.5); NEUTROPHILS % 64.7 % (36.0-66.0); PLATELET COUNT, AUTOMATED 189 10^3/uL (150-450); RED BLOOD COUNT 3.82 10^6/uL (4.00-5.40); WHITE BLOOD COUNT 5.1 10^3/uL (4.0-10.0)
[2024-09-20 06:37] LABS: ALBUMIN 2.8 G/DL (3.2-5.2); ALKALINE PHOSPHATASE 112 U/L (35-104); ALT/SGPT 25 U/L (7.0-40); AST/SGOT 22 U/L (<34); BILIRUBIN,TOTAL 1.5 MG/DL (0.3-1.2); BLOOD UREA NITROGEN 16 MG/DL (9-23); CALCIUM LEVEL 8.3 MG/DL (8.3-10.6); CARBON DIOXIDE LEVEL 31 MMOL/L (20-31); CHLORIDE LEVEL 103 MMOL/L (98-107); CREATININE FOR GFR 0.53 MG/DL (0.55-1.30); GLOMERULAR FILTRATION RATE > 60.0 (>39); GLUCOSE, FASTING 117 MG/DL (74-106); SODIUM LEVEL 141 MMOL/L (136-145); TOTAL PROTEIN 6.4 G/DL (5.7-8.2)
[2024-09-20] MEDS ORDERED: MAG SULF 1GM/100ML (MAG RUN) 1 GM in IV 1 EA IV SCH (08:00)
[2024-09-20] MEDS: METOPROLOL TART 25 MG TABLET PO SCH (08:10)
[2024-09-20] MEDS ORDERED: LEVALBUTEROL 1.25 MG 0.5ML CONCENTRATE NEB INH PRN (08:50)
[2024-09-20] MEDS: FLUTICASONE PROP 0.05% NASAL SPRAY 16 GM (FLONASE) NARES SCH (09:00)
[2024-09-20 09:59] LABS: KETONE, URINE AUTO RFX NEGATIVE (NEGATIVE); LEUKOCYTE ESTERASE UR AUTO RFX NEGATIVE (NEGATIVE); MUCUS, URINE RFX SMALL (NEGATIVE); NITRITE, URINE AUTO RFX NEGATIVE (NEGATIVE); RBC, URINE AUTO RFX 1 /HPF (0-3); SQUAM EPITHELIAL CELL UR AURFX 9 /HPF (0-6); WBC, URINE AUTO RFX 2 /HPF (0-3)
[2024-09-20] MEDS: CETIRIZINE (ZyrTEC) 10 MG TAB PO SCH (11:14)
[2024-09-20] MEDS: guaiFENesin ER TABLET 600 MG TAB PO SCH (11:14)
[2024-09-21] VITALS (9 sets, daily range): BP systolic 101–134; BP diastolic 63–88; TEMP 96.8–97.7; O2SAT 86–97
[2024-09-21 04:33] LABS: BASO # 0.1 10^3/uL (0.0-0.2); BASO % 0.9 % (0.0-1.0); EOS # 0.2 10^3/uL (0.0-0.5); EOS % 3.1 % (0.0-3.0); HEMATOCRIT 37.4 % (36.0-47.0); HEMOGLOBIN 11.5 g/dl (12.0-15.5); LYMPH # 1.3 10^3/uL (1.5-5.0); LYMPH % 23.1 % (24.0-44.0); MEAN CORPUSCULAR HEMOGLOBIN 32.5 pg (27.0-33.0); MEAN CORPUSCULAR HGB CONC 30.7 g/dl (32.0-36.5); MEAN CORPUSCULAR VOLUME 105.6 fl (80.0-96.0); MONO # 0.7 10^3/uL (0.0-0.8); MONO % 12.6 % (2.0-8.0); NEUTROPHILS # 3.3 10^3/uL (1.5-8.5); NEUTROPHILS % 60.1 % (36.0-66.0); PLATELET COUNT, AUTOMATED 187 10^3/uL (150-450); RED BLOOD COUNT 3.54 10^6/uL (4.00-5.40); WHITE BLOOD COUNT 5.5 10^3/uL (4.0-10.0)
[2024-09-21 04:55] LABS: ALBUMIN 2.8 G/DL (3.2-5.2); ALKALINE PHOSPHATASE 116 U/L (35-104); ALT/SGPT 33 U/L (7.0-40); AST/SGOT 28 U/L (<34); BILIRUBIN,TOTAL 1.2 MG/DL (0.3-1.2); BLOOD UREA NITROGEN 18 MG/DL (9-23); CALCIUM LEVEL 8.3 MG/DL (8.3-10.6); CARBON DIOXIDE LEVEL 30 MMOL/L (20-31); CHLORIDE LEVEL 103 MMOL/L (98-107); CREATININE FOR GFR 0.52 MG/DL (0.55-1.30); GLOMERULAR FILTRATION RATE > 60.0 (>39); GLUCOSE, FASTING 111 MG/DL (74-106); SODIUM LEVEL 141 MMOL/L (136-145); TOTAL PROTEIN 6.4 G/DL (5.7-8.2)
[2024-09-21] MEDS: MIDODRINE 5 MG TAB PO ONE (08:15)
[2024-09-21] MEDS: LR 1,000 ML IV ONE (08:54)
[2024-09-21] MEDS: DIGOXIN INJ 0.5 MG/2 ML AMP IV STA (09:22)
[2024-09-21] MEDS: METOPROLOL TART 25 MG TABLET PO ONE (09:44)
[2024-09-21] MEDS: AZITHROMYCIN 250MG TABLET PO SCH (14:04)
[2024-09-21] MEDS: CEFUROXIME 500 MG TAB PO SCH (20:06)
[2024-09-22 00:21] VITALS: BP 130/70; TEMP 97.2; O2SAT 95
[2024-09-22 04:00] VITALS: BP 134/72; TEMP 97.3; O2SAT 96
[2024-09-22 06:07] LABS: BASO # 0.1 10^3/uL (0.0-0.2); BASO % 0.9 % (0.0-1.0); EOS # 0.2 10^3/uL (0.0-0.5); HEMATOCRIT 38.9 % (36.0-47.0); LYMPH # 1.1 10^3/uL (1.5-5.0); LYMPH % 19.9 % (24.0-44.0); MEAN CORPUSCULAR HGB CONC 30.8 g/dl (32.0-36.5); MEAN CORPUSCULAR VOLUME 106.9 fl (80.0-96.0); MONO # 0.7 10^3/uL (0.0-0.8); MONO % 11.7 % (2.0-8.0); NEUTROPHILS # 3.7 10^3/uL (1.5-8.5); NEUTROPHILS % 64.2 % (36.0-66.0); PLATELET COUNT, AUTOMATED 172 10^3/uL (150-450); RED BLOOD COUNT 3.64 10^6/uL (4.00-5.40); WHITE BLOOD COUNT 5.7 10^3/uL (4.0-10.0)
[2024-09-22 06:34] LABS: ALBUMIN 2.9 G/DL (3.2-5.2); ALKALINE PHOSPHATASE 119 U/L (35-104); ALT/SGPT 32 U/L (7.0-40); AST/SGOT 37 U/L (<34); BILIRUBIN,TOTAL 1.2 MG/DL (0.3-1.2); BLOOD UREA NITROGEN 21 MG/DL (9-23); CALCIUM LEVEL 8.6 MG/DL (8.3-10.6); CARBON DIOXIDE LEVEL 30 MMOL/L (20-31); CHLORIDE LEVEL 104 MMOL/L (98-107); GLOMERULAR FILTRATION RATE > 60.0 (>39); GLUCOSE, FASTING 112 MG/DL (74-106); SODIUM LEVEL 142 MMOL/L (136-145); TOTAL PROTEIN 6.6 G/DL (5.7-8.2)
[2024-09-22 08:00] VITALS: BP 138/83; TEMP 97; O2SAT 95
[2024-09-22 12:00] VITALS: BP 153/105; TEMP 97.3; O2SAT 93
[2024-09-22] MEDS: METOPROLOL SUCC *XL* 25MG TAB (TopROL *XL*) PO ONE (13:55)
[2024-09-22 16:00] VITALS: BP 138/82; TEMP 97.3; O2SAT 93
[2024-09-22] MEDS: METOPROLOL TART 25 MG TABLET PO ONE (16:36)
[2024-09-22] MEDS: DIGOXIN INJ 0.5 MG/2 ML AMP IV STA (16:36)
[2024-09-22 19:54] VITALS: BP 141/85; TEMP 97.7; O2SAT 97
[2024-09-22] MEDS: METOPROLOL SUCC *XL* 12.5MG PER 1/2 TAB (TopROL *XL*) PO SCH (20:58)
[2024-09-22] MEDS: DIGOXIN INJ 0.5 MG/2 ML AMP IV ONE (23:18)
[2024-09-23] VITALS (11 sets, daily range): BP systolic 132–143; BP diastolic 77–84; TEMP 97.3–97.7; O2SAT 77–96
[2024-09-23] MEDS: DIGOXIN INJ 0.5 MG/2 ML AMP IV ONE (03:44)
[2024-09-23] MEDS: PERCOCET 5MG/325MG TAB PO PRN (03:55)
[2024-09-23 04:48] LABS: BASO % 0.7 % (0.0-1.0); EOS # 0.2 10^3/uL (0.0-0.5); EOS % 2.6 % (0.0-3.0); HEMATOCRIT 36.9 % (36.0-47.0); HEMOGLOBIN 11.6 g/dl (12.0-15.5); LYMPH # 1.1 10^3/uL (1.5-5.0); LYMPH % 18.8 % (24.0-44.0); MEAN CORPUSCULAR HEMOGLOBIN 33.2 pg (27.0-33.0); MEAN CORPUSCULAR HGB CONC 31.4 g/dl (32.0-36.5); MEAN CORPUSCULAR VOLUME 105.7 fl (80.0-96.0); MONO # 0.8 10^3/uL (0.0-0.8); MONO % 12.7 % (2.0-8.0); NEUTROPHILS # 3.9 10^3/uL (1.5-8.5); PLATELET COUNT, AUTOMATED 183 10^3/uL (150-450); RED BLOOD COUNT 3.49 10^6/uL (4.00-5.40); WHITE BLOOD COUNT 6.1 10^3/uL (4.0-10.0)
[2024-09-23 05:11] LABS: ALBUMIN 2.8 G/DL (3.2-5.2); ALKALINE PHOSPHATASE 117 U/L (35-104); ALT/SGPT 29 U/L (7.0-40); AST/SGOT 21 U/L (<34); BILIRUBIN,TOTAL 1.4 MG/DL (0.3-1.2); BLOOD UREA NITROGEN 17 MG/DL (9-23); CALCIUM LEVEL 8.4 MG/DL (8.3-10.6); CARBON DIOXIDE LEVEL 31 MMOL/L (20-31); CHLORIDE LEVEL 104 MMOL/L (98-107); CREATININE FOR GFR 0.48 MG/DL (0.55-1.30); GLOMERULAR FILTRATION RATE > 60.0 (>39); GLUCOSE, FASTING 106 MG/DL (74-106); POTASSIUM SERUM 4.2 MMOL/L (3.5-5.1); SODIUM LEVEL 142 MMOL/L (136-145); TOTAL PROTEIN 6.4 G/DL (5.7-8.2)
[2024-09-23] MEDS: METOPROLOL SUCC (TopROL XL) 50MG **XL** TAB PO SCH (08:22)
[2024-09-23] MEDS: FUROSEMIDE 40MG/4ML VIAL IV SCH (18:06)
[2024-09-24] VITALS (9 sets, daily range): BP systolic 125–137; BP diastolic 81–84; TEMP 97–97.7; O2SAT 74–97
[2024-09-24 04:35] LABS: BASO % 0.7 % (0.0-1.0); EOS # 0.2 10^3/uL (0.0-0.5); EOS % 3.2 % (0.0-3.0); HEMATOCRIT 37.7 % (36.0-47.0); HEMOGLOBIN 11.7 g/dl (12.0-15.5); LYMPH # 1.2 10^3/uL (1.5-5.0); MEAN CORPUSCULAR HEMOGLOBIN 33.1 pg (27.0-33.0); MEAN CORPUSCULAR VOLUME 106.5 fl (80.0-96.0); MONO # 0.6 10^3/uL (0.0-0.8); MONO % 10.1 % (2.0-8.0); NEUTROPHILS # 3.6 10^3/uL (1.5-8.5); NEUTROPHILS % 63.8 % (36.0-66.0); PLATELET COUNT, AUTOMATED 183 10^3/uL (150-450); RED BLOOD COUNT 3.54 10^6/uL (4.00-5.40); WHITE BLOOD COUNT 5.6 10^3/uL (4.0-10.0)
[2024-09-24 05:01] LABS: ALBUMIN 2.9 G/DL (3.2-5.2); ALKALINE PHOSPHATASE 117 U/L (35-104); ALT/SGPT 31 U/L (7.0-40); AST/SGOT 24 U/L (<34); BILIRUBIN,TOTAL 1.6 MG/DL (0.3-1.2); BLOOD UREA NITROGEN 20 MG/DL (9-23); CALCIUM LEVEL 8.5 MG/DL (8.3-10.6); CARBON DIOXIDE LEVEL 33 MMOL/L (20-31); CHLORIDE LEVEL 101 MMOL/L (98-107); CREATININE FOR GFR 0.57 MG/DL (0.55-1.30); GLOMERULAR FILTRATION RATE > 60.0 (>39); GLUCOSE, FASTING 110 MG/DL (74-106); POTASSIUM SERUM 4.1 MMOL/L (3.5-5.1); SODIUM LEVEL 140 MMOL/L (136-145); TOTAL PROTEIN 6.5 G/DL (5.7-8.2)
[2024-09-24] MEDS ORDERED: FUROSEMIDE 40MG/4ML VIAL IV ONE (07:00)
[2024-09-24] MEDS: metOLazone 5 MG TAB PO ONE (07:05)
[2024-09-24] MEDS: FUROSEMIDE 40MG/4ML VIAL IV ONE ×3 (09:19→17:40)
[2024-09-24] MEDS: metOLazone 2.5 MG TAB PO ONE (12:16)
[2024-09-24 21:12] LABS: IONIZED CALCIUM 4.3 MG/DL (4.5-5.3)
[2024-09-24 21:42] LABS: BLOOD UREA NITROGEN 27 MG/DL (9-23); CALCIUM LEVEL 9.1 MG/DL (8.3-10.6); CARBON DIOXIDE LEVEL 38 MMOL/L (20-31); CHLORIDE LEVEL 94 MMOL/L (98-107); CREATININE FOR GFR 0.65 MG/DL (0.55-1.30); GLOMERULAR FILTRATION RATE > 60.0 (>39); GLUCOSE, FASTING 199 MG/DL (74-106); MAGNESIUM LEVEL 1.9 MG/DL (1.8-2.4); POTASSIUM SERUM 3.8 MMOL/L (3.5-5.1); SODIUM LEVEL 139 MMOL/L (136-145)
[2024-09-25 03:47] VITALS: BP 109/63; TEMP 97.2; O2SAT 93
[2024-09-25 06:51] LABS: HEMATOCRIT 42.4 % (36.0-47.0); HEMOGLOBIN 13.6 g/dl (12.0-15.5); MEAN CORPUSCULAR HEMOGLOBIN 32.9 pg (27.0-33.0); MEAN CORPUSCULAR HGB CONC 32.1 g/dl (32.0-36.5); MEAN CORPUSCULAR VOLUME 102.4 fl (80.0-96.0); PLATELET COUNT, AUTOMATED 213 10^3/uL (150-450); RED BLOOD COUNT 4.14 10^6/uL (4.00-5.40); WHITE BLOOD COUNT 6.9 10^3/uL (4.0-10.0)
[2024-09-25 07:10] LABS: ALBUMIN 3.1 G/DL (3.2-5.2); ALKALINE PHOSPHATASE 129 U/L (35-104); ALT/SGPT 29 U/L (7.0-40); AST/SGOT 22 U/L (<34); BLOOD UREA NITROGEN 25 MG/DL (9-23); CALCIUM LEVEL 9.2 MG/DL (8.3-10.6); CARBON DIOXIDE LEVEL 37 MMOL/L (20-31); CHLORIDE LEVEL 94 MMOL/L (98-107); CREATININE FOR GFR 0.56 MG/DL (0.55-1.30); GLOMERULAR FILTRATION RATE > 60.0 (>39); GLUCOSE, FASTING 127 MG/DL (74-106); SODIUM LEVEL 138 MMOL/L (136-145)
[2024-09-25 07:48] LABS: ATYPICAL LYMPH 9 % (0-5); BASOPHILS 1 % (0-1); EOSINOPHILS 6 % (0-3); LYMPHOCYTES 14 % (16-44); MONOCYTES 9 % (0-5); NEUTROPHILS 60 % (28-66)
[2024-09-25 07:50] LABS: ANISOCYTOSIS 1+; PLATELET ESTIMATE NORMAL (NORMAL)
[2024-09-25 10:30] VITALS: O2SAT 95
[2024-09-25] MEDS: FUROSEMIDE 40 MG TAB PO SCH (10:39)
[2024-09-25] MEDS ORDERED: DIGOXIN INJ 0.5 MG/2 ML AMP IV ONE (18:00)
[2024-09-25] MEDS: DIGOXIN INJ 0.5 MG/2 ML AMP IV ONE (19:37)
[2024-09-26] MEDS ORDERED: DIGOXIN INJ 0.5 MG/2 ML AMP IV ONE
[2024-09-26 03:00] VITALS: BP 126/66; TEMP 97.2; O2SAT 94
[2024-09-26] MEDS ORDERED: DIGOXIN INJ 0.5 MG/2 ML AMP IV SCH (09:00)
[2024-09-26] MEDS: DIGOXIN 0.125 MG TAB PO SCH (09:11)
[2024-09-26 18:14] VITALS: O2SAT 93
[2024-09-27 03:50] VITALS: BP 152/73; TEMP 97; O2SAT 95
[2024-09-27 05:17] LABS: HEMATOCRIT 44.7 % (36.0-47.0); HEMOGLOBIN 14.3 g/dl (12.0-15.5); MEAN CORPUSCULAR HEMOGLOBIN 32.8 pg (27.0-33.0); MEAN CORPUSCULAR VOLUME 102.5 fl (80.0-96.0); PLATELET COUNT, AUTOMATED 246 10^3/uL (150-450); RED BLOOD COUNT 4.36 10^6/uL (4.00-5.40); WHITE BLOOD COUNT 7.9 10^3/uL (4.0-10.0)
[2024-09-27 05:38] LABS: BLOOD UREA NITROGEN 29 MG/DL (9-23); CALCIUM LEVEL 9.5 MG/DL (8.3-10.6); CARBON DIOXIDE LEVEL 32 MMOL/L (20-31); CHLORIDE LEVEL 98 MMOL/L (98-107); GLOMERULAR FILTRATION RATE > 60.0 (>39); GLUCOSE, FASTING 153 MG/DL (74-106); POTASSIUM SERUM 4.2 MMOL/L (3.5-5.1); SODIUM LEVEL 139 MMOL/L (136-145)
[2024-09-28 03:20] VITALS: BP 123/85; TEMP 97.2; O2SAT 94
[2024-09-28 20:28] VITALS: BP 121/78; TEMP 97; O2SAT 90
[2024-09-29 03:16] VITALS: BP 116/76; TEMP 97.5; O2SAT 94
[2024-09-29 17:27] VITALS: O2SAT 94
[2024-09-30 03:52] VITALS: BP 116/73; TEMP 97.7; O2SAT 92
[2024-09-30 04:27] LABS: HEMATOCRIT 42.2 % (36.0-47.0); MEAN CORPUSCULAR HGB CONC 30.8 g/dl (32.0-36.5); MEAN CORPUSCULAR VOLUME 103.9 fl (80.0-96.0); PLATELET COUNT, AUTOMATED 246 10^3/uL (150-450); RED BLOOD COUNT 4.06 10^6/uL (4.00-5.40); WHITE BLOOD COUNT 7.7 10^3/uL (4.0-10.0)
[2024-09-30 04:50] LABS: BLOOD UREA NITROGEN 27 MG/DL (9-23); CARBON DIOXIDE LEVEL 30 MMOL/L (20-31); CHLORIDE LEVEL 102 MMOL/L (98-107); CREATININE FOR GFR 0.48 MG/DL (0.55-1.30); GLOMERULAR FILTRATION RATE > 90.0 (>39); GLUCOSE, FASTING 152 MG/DL (74-106); POTASSIUM SERUM 4.3 MMOL/L (3.5-5.1); SODIUM LEVEL 141 MMOL/L (136-145)
[2024-09-30 11:35] VITALS: O2SAT 95; O2SAT 97
[2024-09-30 22:00] VITALS: O2SAT 84
[2024-09-30 22:03] VITALS: O2SAT 94
[2024-10-01 03:01] VITALS: BP 137/87; TEMP 97.7; O2SAT 97
[2024-10-01 12:38] VITALS: O2SAT 94
[2024-10-02 03:27] VITALS: BP 127/76; TEMP 97.7; O2SAT 92
[2024-10-03 03:55] VITALS: BP 144/77; TEMP 97.9; O2SAT 97
[2024-10-04 04:00] VITALS: BP 126/74; TEMP 97.7; O2SAT 90
[2024-10-04 06:05] LABS: HEMATOCRIT 41.2 % (36.0-47.0); MEAN CORPUSCULAR HEMOGLOBIN 31.9 pg (27.0-33.0); MEAN CORPUSCULAR HGB CONC 31.6 g/dl (32.0-36.5); MEAN CORPUSCULAR VOLUME 101.2 fl (80.0-96.0); PLATELET COUNT, AUTOMATED 246 10^3/uL (150-450); RED BLOOD COUNT 4.07 10^6/uL (4.00-5.40); WHITE BLOOD COUNT 5.9 10^3/uL (4.0-10.0)
[2024-10-04 06:25] LABS: BLOOD UREA NITROGEN 27 MG/DL (9-23); CALCIUM LEVEL 8.3 MG/DL (8.3-10.6); CARBON DIOXIDE LEVEL 27 MMOL/L (20-31); CHLORIDE LEVEL 106 MMOL/L (98-107); CREATININE FOR GFR 0.51 MG/DL (0.55-1.30); GLOMERULAR FILTRATION RATE > 90.0 (>39); GLUCOSE, FASTING 150 MG/DL (74-106); POTASSIUM SERUM 4.1 MMOL/L (3.5-5.1); SODIUM LEVEL 142 MMOL/L (136-145)
[2024-10-04 12:38] VITALS: BP 125/73; TEMP 97.7; O2SAT 97
[2024-10-05 03:50] VITALS: BP 125/73; TEMP 97.2; O2SAT 95
[2024-10-05 05:28] VITALS: O2SAT 95
[2024-10-05] MEDS: risperiDONE 0.5 MG TAB PO SCH (11:47)
[2024-10-05] MEDS: VANICREAM MOISTURIZING SKIN CREAM 113GM TUBE TOP SCH (12:15)
[2024-10-05] MEDS ORDERED: RISATAB3 PO (21:05)
[2024-10-05] MEDS ORDERED: ACET32TAB PO (21:05)
[2024-10-05] MEDS ORDERED: CETI10TA PO (21:05)
[2024-10-05] MEDS ORDERED: MUCI600T31 PO (21:05)
[2024-10-05] MEDS ORDERED: VANI1CRE5 TOP (21:05)
[2024-10-05] MEDS ORDERED: FURO40TA2 PO (21:05)
[2024-10-05] MEDS ORDERED: DIGO0.123 PO (21:05)
[2024-10-05] MEDS ORDERED: FLUTISP NARES (21:05)
[2024-10-05] MEDS ORDERED: METO1TAB7 PO (21:05)
[2024-10-05] MEDS ORDERED: ELIQ5TAB PO (21:05)
[2024-10-05] MEDS ORDERED: POTA-136 PO (21:05)
[2024-10-05] MEDS ORDERED: RISP0.5T21 PO (21:05)
[2024-10-05] MEDS ORDERED: NYST10006 TOP (21:05)
[2024-10-05] MEDS ORDERED: PERCOCET PO (21:05)
[2024-10-06 03:25] VITALS: BP 108/53; TEMP 97.2; O2SAT 91
[2024-10-06 05:28] VITALS: O2SAT 95
[2024-10-06 08:12] VITALS: BP 105/59
== END 2024-10-06 15:20 | DRG 570 ==
LOC: EDBD 14:09 → M ED 14:09 → M ED INP 19:06 → M MSPAV 21:29
PROVIDERS: ADMIT Family Medicine; ATTEND Internal Medicine
PROC: B246ZZZ Ultrasonography of Right and Left Heart (ICD-10-PCS; 2024-09-16)
PROC: 0JBR0ZZ Excision of Left Foot Subcutaneous Tissue and Fascia, Open Approach (ICD-10-PCS; principal; 2024-09-20)
DX: L03.116 Cellulitis of left lower limb (principal); J18.9 Pneumonia, unspecified organism; I50.33 Acute on chronic diastolic (congestive) heart failure; I48.21 Permanent atrial fibrillation; I27.20 Pulmonary hypertension, unspecified; S91.105A Unspecified open wound of left lesser toe(s) without damage to nail, initial encounter; F32.A Depression, unspecified; F20.9 Schizophrenia, unspecified; I11.0 Hypertensive heart disease with heart failure; E11.42 Type 2 diabetes mellitus with diabetic polyneuropathy; E66.9 Obesity, unspecified; F41.9 Anxiety disorder, unspecified; S99.922A Unspecified injury of left foot, initial encounter; E11.51 Type 2 diabetes mellitus with diabetic peripheral angiopathy without gangrene; G89.29 Other chronic pain; M54.9 Dorsalgia, unspecified; M19.90 Unspecified osteoarthritis, unspecified site; R32 Unspecified urinary incontinence; R19.7 Diarrhea, unspecified; Z91.198 Patient's noncompliance with other medical treatment and regimen for other reason; X58.XXXA Exposure to other specified factors, initial encounter; Y93.9 Activity, unspecified; Y92.9 Unspecified place or not applicable; Y99.8 Other external cause status; Z86.16 Personal history of COVID-19; Z87.891 Personal history of nicotine dependence